=== PATIENT | female | born 1950 | race Caucasian/White ===

== ENCOUNTER 2021-12-24 20:45 | Inpatient (IN) | payer OTHER, SELFPAY ==
[2021-12-24] VITALS (23 sets, daily range): BP systolic 86–126; BP diastolic 46–115; PULSE 112–142; RESP 7–37; TEMP 37.2–38.1; O2SAT 88–96
--- NOTE | ~2021-12-24 | CT_ITS ---
EXAMINATION: CTA chest PE protocol DATE: 12/24/2021 21:59 INDICATION: Shortness of breath TECHNIQUE: Computed tomography angiography (CTA) of the chest was performed with 100 mL Omnipaque-350 intravenous contrast timed to evaluate the pulmonary arteries. Coronal maximum intensity projection 3D-reconstructions were created by the technologist. The dose-length product (DLP) was 211.62 mGy-cm. Automated exposure control and iterative reconstruction technique were employed. COMPARISON: None. FINDINGS: The pulmonary arteries are well-opacified. There are pulmonary emboli in the right upper lo be. There is moderate emphysema. There are nodular airspace opacities of the right lower lobe measuri ng up to 2.4 x 1.7 cm. There are small pleural effusions, right greater than left. There is no pneumo thorax. The heart size is normal. A small sliding hiatal hernia is noted. There is sclerosis of the L 1 and L2 vertebral bodies and posterior elements. IMPRESSION: 1. Right upper lobe pulmonary emboli. 2. Nodular airspace opacities of the right lower lobe, likely pneumonia given patient's fever. 3. Sclerosis of the L1 and L2 vertebral bodies and posterior elements which could reflect metastatic disease. These findings were discussed with Dr. Duane Burleson MD in the Emergency Department at 2218 hour s on 12/24/2021. Reviewed, dictated and finalized at location F. PUSHER IMPRESSION: 1. Right upper lobe pulmonary emboli. 2. Nodular airspace opacities of the right lower lobe, likely pneumonia given p atient's fever. 3. Sclerosis of the L1 and L2 vertebral bodies and posterior elements which cou ld reflect metastatic disease. These findings were discussed with Dr. Dunae Burleson MD in the Emergency D epartment at 2218 hours on 12/24/2021.
--- NOTE | ~2021-12-24 | XR_ITS ---
EXAMINATION: XR chest 1V portable INDICATION: Chest pain TECHNIQUE: Portable AP chest at 2103 hours COMPARISON: 01/09/2018 FINDINGS: There are minimal airspace opacities of the lung bases. Small pleural effusions are present . There is no pneumothorax. The heart size is normal. There is calcified atherosclerosis. IMPRESSION: 1. Minimal bibasilar airspace opacities, consistent with atelectasis versus pneumonia. 2. Small pleural effusions. Reviewed, dictated and finalized at location F. OR COMMISSIONS ANALYST IMPRESSION: 1. Minimal bibasilar airspace opacities, consistent with atelectasis versus pne umonia. 2. Small pleural effusions.
--- NOTE | ~2021-12-24 | XR_ITS ---
XR chest 1V portable 12/25/2021 10:50 Indication: Pneumonia Procedure: AP portable chest Comparison: Comparison to multiple prior studies sequentially, with oldest reviewed study dated 07/2018. Findings: Persistent bibasilar infiltrates unchanged compared with 12/24/2021. Heart size normal. No e etnisha, significant effusion or pneumothorax. No acute osseous abnormality. Impression: 1: Stable bibasilar infiltrates, suspicious for pneumonia. Reviewed, dictated and finalized at location B. ILE PROCESSING TECHNOLOGIST Impression: 1: Stable bibasilar infiltrates, suspicious for pneumonia.
--- NOTE | 2021-12-24 20:55 | ECG_ITS ---
Measurements Intervals [place] Rate: 138 P: [place]: 0 QRS: 61 QRSD: 137 T: 19 QT: 307 QTc: 466 Interpretive Statements ATRIAL FLUTTER/TACHYCARDIA WITH RAPID VENTRICULAR RESPONSE RIGHT BUNDLE BRANCH BLOCK BASELINE ARTIFACT- I, II, III, AVR, AVL, AVF, V1-V6 ABNORMAL ECG Electronically Signed On 12-24-2021 21:17:04 RN [facility] by Quinton España D.O.
--- NOTE | 2021-12-24 20:58 | ED.GENADULT ---
HPI - General Adult General Chief complaint: Weakness Stated complaint: SICK CASE X 3 DAYS Time Seen by Provider: 12/24/21 20:55 Source: patient Mode of arrival: ambulatory Limitations: no limitations History of Present Illness HPI narrative: Patient is a 71-year-old female complaining of shortness of breath, fever, cough, body aches that started 3 days ago. According to EMS patient's oxygen saturation was in the low 80s when they arrived. Patient states that her daughter tested positive for Covid yesterday. Patient states that she is not vaccinated from Covid. Patient denies any chest pain, abdominal pain, nausea, vomiting or diarrhea. Related Data Allergies Allergy/AdvReac Type Severity Reaction Status Date / Time No Known Allergies Allergy Verified 12/24/21 21:16 Review of Systems Review of Systems: All systems reviewed & are unremarkable except as noted in HPI and below Constitutional: Constitutional: Denies excessive sweating, Reports fatigue, Denies fever(s), Denies headache(s), Reports weakness and Denies weight loss Comments: Loss of appetite, fatigue Eyes: Eyes: Denies blurry vision, Denies change in vision and Denies loss of vision ENT: Denies dizziness, Denies ear discharge, Denies headache(s), Denies lip swelling, Denies epistaxis, Denies nasal congestion, Denies neck pain, Denies throat swelling and Denies tongue swelling Cardiovascular: Cardiovascular: Denies chest pain, Denies chest pain at rest, Denies chest pain with activity, Denies diaphoresis, Denies rapid heart rate, Denies edema, Denies irregular heart rhythm, Denies lightheadedness and Denies palpitations Respiratory: Respiratory: Denies chest congestion and Denies hemoptysis Gastrointestinal: Gastrointestinal: Denies abdominal pain, Denies melena, Denies hematochezia, Denies diarrhea, Denies nausea, Denies vomiting and Denies hematemesis Musculoskeletal: Musculoskeletal: Denies abnormal gait, Denies deformity, Denies joint swelling, Denies limited range of motion, Denies neck pain and Denies numbness Neurologic: Denies Abnormal speech present, Denies abnormal gait, Denies confusion, Denies dizziness, Denies headache(s), Denies focal weakness, Denies loss of vision, Denies numbness, Denies Other visual disturbances, Denies Sensory deficit (Neuro) and Denies weakness Psychiatric: Psychiatric: Denies confusion, Denies depression, Denies auditory hallucinations, Denies homicidal ideation and Denies suicidal ideation Endocrine: Endocrine: Denies cold intolerance, Denies excessive sweating, Denies fatigue, Denies heat intolerance and Denies palpitations Hematologic/Lymphatic: Hematologic/Lymphatic: Denies easy bleeding and Denies easy bruising Allergic/Immunologic: Allergic/Immunologic: Denies lip swelling, Denies throat swelling and Denies tongue swelling PMFSH Family History Family History Father Family history of malignant neoplasm Patient's father is Sibling Family history of malignant neoplasm Family history of heart disease in male family member before age 55 Mother Family history of heart disease in male family member before age 55 Patient's mother is Other Hypertension Social History Social History Smoking status: Current every day smoker Alcohol intake: current Comments Past medical history: None Exam Const: General: cooperative, comfortable, well developed, alert and awake; No confusion Orientation/consciousness: oriented to person, oriented to place, oriented to time, patient oriented x3 and No confusion Limitations: no limitations Other: Moderate distress, frail, ill-appearing HENMT: Head: normal to inspection, normocephalic and atraumatic Ears: hearing grossly normal bilaterally, TM normal on the right and TM normal on the left General nose exam: Normal external nose pre
[2021-12-24] MEDS: ACETAMINOPHEN 325 MG TABLET 650 MG PO (21:18)
[2021-12-24] MEDS: SODIUM CHLORIDE 0.9% IV 1,000 ML 999 ML IV CONT ×2 (21:19)
[2021-12-24 21:20] LABS: Basophils Absolute Auto 0.1 K/mm3 (0.0-0.1); Basophils Percent Auto 0.4 % (0.2-1.2); Hematocrit 33.6 % (37.0-47.0); Hemoglobin 9.3 g/dL (12.0-15.0); Immature Granulocyte Absolute 0.11 K/mm3 (0.00-0.031); Immature Granulocyte Percent A 0.8 % (0-0.5); Lymphocytes Absolute Auto 1.41 K/mm3 (0.9-3.2); Lymphocytes Percent Auto 9.6 % (18.3-44.2); Mean Corpuscular HGB Conc 27.7 g/dl (32-36); Mean Corpuscular Hemoglobin 22.9 pg (26-34); Mean Corpuscular Volume 82.6 fl (80-100); Mean Platelet Volume 9.9 fl (7.4-10.4); Monocytes Absolute Auto 1.8 K/mm3 (0.1-0.6); Monocytes Percent Auto 12.3 % (2.6-8.5); Neutrophils Absolute Auto 11.3 K/mm3 (1.3-6.7); Neutrophils Percent Auto 76.9 % (45.5-73.1); Nucleated Red Blood Cells Perc 0.2 % (0.0-0.2); Platelet Count Result 406 k/mm3 (150-375); Red Blood Count 4.07 M/mm3 (4.2-5.4); Red Cell Distribution Width 18.3 % (11.5-14.5); White Blood Count 14.6 K/mm3 (4.5-10.0)
[2021-12-24 21:32] LABS: INR 1.2; Prothrombin Time 15.1 Seconds (11.1-14.7)
[2021-12-24 21:33] LABS: Partial Thromboplastin Time 31.4 SECONDS (22.3-36.8)
[2021-12-24] MEDS: DEXAMETHASONE SOD PHOS INJ 4 MG/ML VIAL 10 MG IV PUSH (21:33)
[2021-12-24 21:34] LABS: Alveolar/Arterial O2 Gradient 73.7 mmHg; Base Excess ABG 6.7 mEq/l (+/-2.0); Carboxyhemoglobin 0.7 % THb (0-2.0); Fractional Inspired Oxygen 28 %; HCO3 ABG 33.3 mEq/l (22.0-26.0); Methemoglobin ABG 0.4 %THb (0-1.5); Oxygen Content ABG 10.7 %vol (16.0-22.0); PCO2 ABG 59.8 mmHg (35.0-45.0); PO2 ABG 55.4 mmHg (80.0-100.0); PO2 FiO2 Ratio Arterial Blood 1.98 %; Reduced Hemoglobin 15.8 %THb (0-5.0); Total Hemoglobin 9.1 g/dL (12.0-18.0); pH ABG 7.363 (7.350-7.450)
[2021-12-24 21:34] LABS: Lactic Acid Reflex 1.1 mmol/L (0.7-2.1)
[2021-12-24 21:35] LABS: Alanine Aminotransferase 17 U/L (4-35); Albumin Level 3.8 g/dL (3.5-5.1); Alkaline Phosphatase 90 U/L (38-126); Anion Gap 5 mmol/L (8-16); Aspartate Amino Transferase 31 U/L (14-36); Bilirubin,Total 0.4 mg/dL (0.2-1.3); Blood Urea Nitrogen 26 mg/dL (7-17); Calcium 8.4 mg/dL (8.4-10.2); Carbon Dioxide 36 mmol/L (22-30); Chloride 100 mmol/L (98-107); D Dimer 0.97 ug/mL (<0.48); Estimated Glomerular Filt Rate > 60; Glucose 169 mg/dL (65-110); Potassium 3.9 mmol/L (3.4-5.0); Sodium 141 mmol/L (137-145)
[2021-12-24 21:37] LABS: Device NASAL CANNULA; Modified Allen's Test Pass; Oxygen Saturation ABG 86.9 % (95.0-100.0); Oxyhemoglobin 83.1 % THb (90.0-100.0); Site Drawn RIGHT RADIAL
[2021-12-24 21:40] LABS: Hypochromasia 2+ (NORMAL); Ovalocytes 1+ (NORMAL); Platelet Estimate Increased (Adequate)
[2021-12-24] MEDS: ALBUTEROL SULFATE NEB 2.5 MG/0.5 ML INH 5 MG INHALATION (21:40)
[2021-12-24] MEDS: IPRATROPIUM BR 0.02% INH SOLN 0.5 MG/2.5 ML VIAL INHALATION (21:40)
[2021-12-24 21:41] LABS: Anisocytosis 1+ (NORMAL); Stomatocytes 1+ (NORMAL)
[2021-12-24 22:16] LABS: SARS-CoV-2 RNA PCR Positive
--- NOTE | 2021-12-24 22:40 | PM.IMHP ---
H&P: HPI History of Present Illness Date/Time: 12/24/21 22:40 Chief Complaint: Shortness of breath Narrative: This is a 71-year-old female with past medical history significant for COPD/emphysema, tobacco dependence. Patient presented to the emergency room due to shortness of breath for the last 3-4 days or so cough which is her usual with some production of scanty sputum no change in color. Patient has been having fevers, chills, rigors, denies night sweats, poor appetite. Upon EMS arrival patient was found to have an oxygen saturation in the 80s. Preliminary workup was significant for positive COVID-19. A CT PE protocol was significant for pulmonary emboli as well. Chest x-ray with infiltrates. Review of Systems Review of Systems: Shortness of breath, cough, fevers chills, poor appetite. Constitutional: Constitutional: Reports chills, Reports fatigue, Reports fever(s) and Reports poor appetite Eyes: Eyes: Denies change in vision ENT: Denies dysphagia, Denies nasal congestion, Denies nasal discharge, Denies nasal obstruction and Denies odynophagia Cardiovascular: Cardiovascular: Denies claudication, Denies radiating jaw, neck or arm pain, Denies palpitations, Denies dyspnea on exertion and Denies orthopnea Respiratory: Respiratory: Denies change in phlegm color, Reports chest congestion, Reports cough, Denies excessive phlegm production and Reports dyspnea Gastrointestinal: Gastrointestinal: Denies abdominal pain, Denies dyspepsia, Denies heartburn, Denies diarrhea, Denies nausea and Denies vomiting Genitourinary: Genitourinary: Denies dysuria Musculoskeletal: Musculoskeletal: Denies arthralgias and Denies joint swelling Integumentary/Breasts: Skin/Breast: Denies rash Neurologic: Denies focal weakness and Denies Sensory deficit (Neuro) Psychiatric: Psychiatric: Reports no additional psychiatric complaints and Reports as per HPI Endocrine: Endocrine: Denies cold intolerance, Denies heat intolerance, Denies polyphagia, Denies polydipsia and Denies palpitations Hematologic/Lymphatic: Hematologic/Lymphatic: Reports no additional hematologic/lymphatic complaints and Reports as per HPI Allergic/Immunologic: Allergic/Immunologic: Reports no additional allergic/immunologic complaints and Reports as per HPI [facility] Family History Family History Father Family history of malignant neoplasm Patient's father is Sibling Family history of malignant neoplasm Family history of heart disease in male family member before age 55 Mother Family history of heart disease in male family member before age 55 Patient's mother is Other Hypertension Social History Social History Smoking packs per day: 0.75 Smoking cigarettes per day: 15.0 Smoking status: Current every day smoker Tobacco type: cigarettes Alcohol intake: current Spiritual care concerns: No Meds Home Medications and Allergies Home Medications Medication Instructions Recorded Confirmed Type No Home Medications 12/25/21 12/25/21 History Allergies Allergy/AdvReac Type Severity Reaction Status Date / Time No Known Allergies Allergy Verified 12/24/21 21:16 Vital Signs Vital Signs - 24 hr 12/24/21 20:49 12/24/21 21:35 12/24/21 21:42 Temperature 100.5 F H Pulse Rate 140 H 112 H 120 H Respiratory Rate 33 H 23 H 24 H Blood Pressure 86/64 L Pulse Oximetry 88 L Exam Narrative: Patient is sitting in chair Const: General: cooperative, comfortable, no acute distress, well developed, alert, awake and ill appearing chronically Nutritional Appearance: average body habitus Orientation/consciousness: patient oriented x3 HENMT: Head: normal to inspection, normocephalic and atraumatic Ears: hearing grossly normal bilaterally General nose exam: Normal external nose present Face and sin
[2021-12-24] MEDS: ENOXAPARIN 60 MG/0.6 ML SYRINGE SUB-Q (23:27)
[2021-12-24] MEDS: LACTATED RINGERS 1,000 ML 125 ML IV CONT (23:28)
--- NOTE | 2021-12-24 23:50 | PC.NURSE ---
[id number] Patient's daughter and updated on patient's condition. Advised them that she was being admitted and that patients with covid cannot have visitors. Updated patient's daughter with her room number. Salome - daughter - [phone] Taye - - [phone]
[2021-12-25] VITALS (21 sets, daily range): BP systolic 100–140; BP diastolic 43–65; PULSE 13–135; RESP 18–22; TEMP 35.8–36.6; O2SAT 90–99; BMI 28.8
--- NOTE | 2021-12-25 | ECHO_ITS ---
Patient Info Name: Georgette Mcgill Age: 71 years : 1950 Gender: Female Ht: 59 in Wt: 144 lbs BSA: 1.67 m2 HR: 90 bpm BP: 137 / 64 mmHg Heart Rhythm: Sinus Rhythm Exam Date: 12/25/2021 11:07 AM Exam Location: [facility] Pulmonary Patient Status: Inpatient Admit Date: 12/24/2021 Staff Ordering Physician: Laura Martin MD Cold Header: Oc Yancey, JATINDER, RT Attending Provider: Hunter Amos MD Exam Type: CA echo doppler color flow Study Info Indications I26.09 - Other pulmonary embolism with acute cor pulmonale Complete two-dimensional, color flow and Doppler transthoracic echocardiogram is performed. Strain analysis performed. Summary 1. Complete two-dimensional, color flow and Doppler transthoracic echocardiogram is performed. 2. Normal LV size and wall thickness; normal LV systolic and diastolic function; ejection fraction 65-70%. Abnormal global longitudinal strain measured at -12%. Normal mitral valve structure, trace MR. Normal aortic valve structure, no stenosis or regurgitation. Trace TR, unable to assess RVSP due to inadequate TR jet. Dilated IVC without respiratory collapse consistent with elevated right atrial pressure. Left Ventricle Left ventricular chamber dimension is normal. Left ventricular systolic function is normal, estimated at 65-70%. There is no increased left ventricular wall thickness. The left ventricular diastolic function is normal. Right Ventricle Right ventricular chamber dimension is normal. Right ventricular systolic function is normal. Left Atria Left atrial chamber dimension is normal. Right Atria Right atrial chamber dimension is normal. Aortic Valve The aortic valve is normal. There is no aortic valve stenosis. Pulmonic Valve The pulmonic valve is not well visualized. There is mild pulmonic regurgitation. Mitral Valve The mitral valve has normal leaflets. There is trace mitral valve regurgitation. Tricuspid Valve The tricuspid valve leaflets are normal. There is trace tricuspid valve regurgitation. Pericardium/Pleural The pericardium appears epicardial fat pad. Inferior Vena Cava Dilated inferior vena cava with no collapse upon inspiration consistent with elevated right atrial pressure, 15 mmHg. Aorta The aortic root size at the sinus of Valsalva is normal. Left Ventricular Outflow Tract Name Value Normal LVOT 2D LVOT Diameter 2.0 cm LVOT Doppler LVOT Peak Gradient 3 mmHg LVOT Mean Gradient 2 mmHg LVOT VTI 21 cm LVOT VTI/AV VTI Ratio 0.8 LVOT Stroke Volume 64 ml LVOT CO 5.8 l/min LVOT CI 3.5 l/min/m2 Mitral Valve Name Value Normal MV Doppler MV Decel [place]
--- NOTE | 2021-12-25 00:43 | PC.NURSE ---
Report called to SHAY Garcia.
--- NOTE | 2021-12-25 01:34 | ADMGEN ---
This patient, Georgette Mcgill, was admitted to IMU Room 210-01 12/25 @ 0100. Patient/family oriented to hospital policies and general routines including ID bracelet, bed and alarms, visiting hours, pain management, procedures, bathroom and other care routines, personal items, smoking policy, room service/diet, and visiting hours. Information on how to activate the Rapid Response Team has been discussed. Patient/Family are encouraged to report perceived risks to care and to ask questions if they do not understand what they are told or what they should do.
[2021-12-25] MEDS: IPRATROPIUM BR 0.02% INH SOLN 0.5 MG/2.5 ML VIAL INHALATION ×3 (02:41→14:53)
[2021-12-25] MEDS: ALBUTEROL SULFATE NEB 2.5 MG/0.5 ML INH 5 MG INHALATION ×3 (02:41→14:53)
[2021-12-25] MEDS: ENOXAPARIN 60 MG/0.6 ML SYRINGE SUB-Q ×2 (08:11→20:35)
--- NOTE | 2021-12-25 10:20 | PM.IMPN ---
Progress Note: A&P Assessment and Plan (1) Acute respiratory failure with hypoxemia: Code(s): J96.01 - Acute respiratory failure with hypoxia Status: Acute Assessment and Plan: Continue supplemental oxygen by nasal cannula Continuous telemetry. Continuous pulse ox (2) Pneumonia: Qualifiers: Laterality: unspecified laterality Lung location: unspecified part of lung Pneumonia type: due to unspecified organism Qualified Code(s): J18.9 - Pneumonia, unspecified organism Code(s): J18.9 - Pneumonia, unspecified organism Status: Acute Assessment and Plan: Patient was appropriately started on Rocephin and Zithromax Follow-up blood cultures. Obtain influenza, procalcitonin, ferritin, CRP, and ESR. (3) Pulmonary embolism without acute cor pulmonale: Qualifiers: Chronicity: acute Pulmonary embolism type: other Qualified Code(s): I26.99 - Other pulmonary embolism without acute cor pulmonale Code(s): I26.99 - Other pulmonary embolism without acute cor pulmonale Status: Acute Assessment and Plan: Patient started on therapeutic Lovenox. Obtain echocardiogram. (4) Pneumonia due to COVID-19 virus: Code(s): U07.1 - COVID-19; J12.82 - Pneumonia due to coronavirus disease 2019 Status: Acute Assessment and Plan: Patient requires 5 L of oxygen. Start Remdesivir and dexamethasone. (5) Tobacco dependence: Code(s): F17.200 - Nicotine dependence, unspecified, uncomplicated Status: Acute Assessment and Plan: Nicotine patch as needed Subjective Date/time seen: 12/25/21 10:20 this is a 71-year-old lady with a past medical history of chronic smoking, COPD/emphysema, admitted for COVID-19 pneumonia. She was diagnosed with pulmonary embolism. S: Patient was seen examined at the bedside. She denies any complaints. At this moment she requires low volume of oxygen. Review of Systems Constitutional: Constitutional: Reports chills, Reports fatigue, Reports fever(s) and Reports poor appetite Eyes: Eyes: Denies change in vision ENT: Denies dysphagia, Denies nasal congestion, Denies nasal discharge, Denies nasal obstruction and Denies odynophagia Cardiovascular: Cardiovascular: Denies claudication, Denies radiating jaw, neck or arm pain, Denies palpitations, Reports dyspnea, Denies dyspnea on exertion and Denies orthopnea Respiratory: Respiratory: Denies change in phlegm color, Reports chest congestion, Reports cough, Denies excessive phlegm production, Reports dyspnea and Denies dyspnea on exertion Gastrointestinal: Gastrointestinal: Denies abdominal pain, Denies dysphagia, Denies dyspepsia, Denies heartburn, Denies diarrhea, Denies nausea, Denies odynophagia and Denies vomiting Genitourinary: Genitourinary: Denies dysuria Musculoskeletal: Musculoskeletal: Denies arthralgias and Denies joint swelling Integumentary/Breasts: Skin/Breast: Denies rash Neurologic: Denies focal weakness and Denies Sensory deficit (Neuro) Psychiatric: Psychiatric: Reports no additional psychiatric complaints and Reports as per HPI Endocrine: Endocrine: Denies cold intolerance, Reports fatigue, Denies heat intolerance, Denies polyphagia, Denies polydipsia and Denies palpitations Hematologic/Lymphatic: Hematologic/Lymphatic: Reports no additional hematologic/lymphatic complaints and Reports as per HPI Allergic/Immunologic: Allergic/Immunologic: Reports no additional allergic/immunologic complaints and Reports as per HPI Exam Narrative: Patient is sitting in bed. Const: General: cooperative, comfortable, no acute distress, well developed, alert, awake and ill appearing chronically Nutritional Appearance: average body habitus Orientation/consciousness: patient oriented x3 HENMT: Head: normal to inspection, normocephalic and atraumatic Ears: hearing grossly normal bilaterally General nose exam: Normal external nose present Face and sinus: normal facial
[2021-12-25 10:51] LABS: INR 1.2
[2021-12-25 10:54] LABS: Alanine Aminotransferase 18 U/L (4-35); Estimated Glomerular Filt Rate > 60
[2021-12-25] MEDS: REMDESIVIR 200 MG/NS 250 ML 200 MG/250 ML BAG 250 MG IVPB (12:01)
[2021-12-25] MEDS: LACTATED RINGERS 1,000 ML 125 ML IV CONT (18:48)
[2021-12-25] MEDS: cefTRIAXone 2 GM in SODIUM CHLORIDE 0.9% IV 100 ML 200 ML IVPB (20:35)
[2021-12-25] MEDS: ALBUTEROL SULFATE (*SP) INHALER 2 PUFF INHALATION (20:49)
[2021-12-26] VITALS (16 sets, daily range): BP systolic 154–161; BP diastolic 62–81; PULSE 73–106; RESP 18–20; TEMP 36.7–37; O2SAT 90–94
[2021-12-26 00:14] LABS: Influenza Control Positive
[2021-12-26] MEDS: ALBUTEROL SULFATE (*SP) INHALER 2 PUFF INHALATION ×3 (02:33→14:42)
[2021-12-26] MEDS: LACTATED RINGERS 1,000 ML 125 ML IV CONT (05:19)
[2021-12-26 05:21] LABS: Alanine Aminotransferase 17 U/L (4-35); Estimated Glomerular Filt Rate > 60
[2021-12-26 05:24] LABS: INR 1.2; Prothrombin Time 14.5 Seconds (11.1-14.7)
[2021-12-26 06:04] LABS: Ferritin 6.65 ng/mL (11.1-264)
[2021-12-26 06:37] LABS: Erythrocyte Sedimentation Rate 24 mm/hr (0-20)
[2021-12-26 08:23] LABS: Anion Gap 2 mmol/L (8-16); Blood Urea Nitrogen 20 mg/dL (7-17); Calcium 8.2 mg/dL (8.4-10.2); Carbon Dioxide 34 mmol/L (22-30); Chloride 103 mmol/L (98-107); Estimated Glomerular Filt Rate > 60; Glucose 103 mg/dL (65-110); Potassium 3.9 mmol/L (3.4-5.0); Sodium 139 mmol/L (137-145)
[2021-12-26] MEDS: ENOXAPARIN 60 MG/0.6 ML SYRINGE SUB-Q (08:52)
[2021-12-26] MEDS: DEXAMETHASONE 2 MG TABLET 6 MG PO (08:53)
[2021-12-26] MEDS: FUROSEMIDE 40 MG TABLET PO (09:04)
[2021-12-26] MEDS: REMDESIVIR 100 MG/NS 250 ML 100 MG/250 ML BAG 250 MG IVPB (09:10)
--- NOTE | 2021-12-26 09:28 | PM.IMPN ---
Progress Note: A&P Assessment and Plan (1) Acute respiratory failure with hypoxemia: Code(s): J96.01 - Acute respiratory failure with hypoxia Status: Acute Assessment and Plan: Acute hypoxic respiratory failure, currently requiring 2 L of oxygen. Likely secondary to COVID-19 pneumonia. In addition diagnosed with pulmonary and boluses, with relatively modest clot burden. Echocardiogram has been ordered. Due to suspicion vertebral lesions on imaging, oncology has been consulted. Continue supplemental oxygen by nasal cannula Continuous telemetry. Continuous pulse ox (2) Pneumonia: Qualifiers: Laterality: unspecified laterality Lung location: unspecified part of lung Pneumonia type: due to unspecified organism Qualified Code(s): J18.9 - Pneumonia, unspecified organism Code(s): J18.9 - Pneumonia, unspecified organism Status: Acute Assessment and Plan: Patient was appropriately started on Rocephin and Zithromax. WBC count is trending down. Influenza has been negative. Inflammatory markers are not significantly elevated. Blood cultures have been negative so far. (3) Pulmonary embolism without acute cor pulmonale: Qualifiers: Chronicity: acute Pulmonary embolism type: other Qualified Code(s): I26.99 - Other pulmonary embolism without acute cor pulmonale Code(s): I26.99 - Other pulmonary embolism without acute cor pulmonale Status: Acute Assessment and Plan: Patient started on therapeutic Lovenox. Obtain echocardiogram. (4) Pneumonia due to COVID-19 virus: Code(s): U07.1 - COVID-19; J12.82 - Pneumonia due to coronavirus disease 2019 Status: Acute Assessment and Plan: Patient requires 5 L of oxygen. Start Remdesivir and dexamethasone. (5) Tobacco dependence: Code(s): F17.200 - Nicotine dependence, unspecified, uncomplicated Status: Acute Assessment and Plan: Nicotine patch as needed Subjective Date/time seen: 12/26/21 08:28 S: Patient was seen and examined at the bedside. She denies any complaints other than insomnia last night. She is anxious to go home. She denies any difficulty breathing while laying down. She has not been on a water pill recently. Review of Systems Constitutional: Constitutional: Reports chills, Reports fatigue, Reports fever(s) and Reports poor appetite Eyes: Eyes: Denies change in vision ENT: Denies dysphagia, Denies nasal congestion, Denies nasal discharge, Denies nasal obstruction and Denies odynophagia Cardiovascular: Cardiovascular: Denies claudication, Denies radiating jaw, neck or arm pain, Denies palpitations, Reports dyspnea, Denies dyspnea on exertion and Denies orthopnea Respiratory: Respiratory: Denies change in phlegm color, Reports chest congestion, Reports cough, Denies excessive phlegm production, Reports dyspnea and Denies dyspnea on exertion Gastrointestinal: Gastrointestinal: Denies abdominal pain, Denies dysphagia, Denies dyspepsia, Denies heartburn, Denies diarrhea, Denies nausea, Denies odynophagia and Denies vomiting Genitourinary: Genitourinary: Denies dysuria Musculoskeletal: Musculoskeletal: Denies arthralgias and Denies joint swelling Integumentary/Breasts: Skin/Breast: Denies rash Neurologic: Denies focal weakness and Denies Sensory deficit (Neuro) Psychiatric: Psychiatric: Reports no additional psychiatric complaints and Reports as per HPI Endocrine: Endocrine: Denies cold intolerance, Reports fatigue, Denies heat intolerance, Denies polyphagia, Denies polydipsia and Denies palpitations Hematologic/Lymphatic: Hematologic/Lymphatic: Reports no additional hematologic/lymphatic complaints and Reports as per HPI Allergic/Immunologic: Allergic/Immunologic: Reports no additional allergic/immunologic complaints and Reports as per HPI Exam Narrative: Patient is sitting in bed. Const: General: cooperative, comfortable, no acute distress, well develop
[2021-12-26 10:20] LABS: Basophils Percent Auto 0.2 % (0.2-1.2); Eosinophils Percent Auto 0.1 % (0-4.4); Hematocrit 30.1 % (37.0-47.0); Hemoglobin 7.9 g/dL (12.0-15.0); Immature Granulocyte Absolute 0.09 K/mm3 (0.00-0.031); Immature Granulocyte Percent A 0.6 % (0-0.5); Lymphocytes Absolute Auto 1.58 K/mm3 (0.9-3.2); Lymphocytes Percent Auto 10.6 % (18.3-44.2); Mean Corpuscular HGB Conc 26.2 g/dl (32-36); Mean Corpuscular Hemoglobin 21.7 pg (26-34); Mean Corpuscular Volume 82.7 fl (80-100); Mean Platelet Volume 10.5 fl (7.4-10.4); Monocytes Absolute Auto 1.3 K/mm3 (0.1-0.6); Monocytes Percent Auto 8.6 % (2.6-8.5); Neutrophils Percent Auto 79.9 % (45.5-73.1); Platelet Count Result 360 k/mm3 (150-375); Red Blood Count 3.64 M/mm3 (4.2-5.4); Red Cell Distribution Width 17.8 % (11.5-14.5)
[2021-12-26 10:23] LABS: Platelet Estimate Adequate (Adequate)
[2021-12-26 10:24] LABS: Anisocytosis 2+ (NORMAL)
[2021-12-26 10:25] LABS: Hypochromasia 2+ (NORMAL); Ovalocytes 2+ (NORMAL)
--- NOTE | 2021-12-26 11:46 | PCRCNOTE ---
HOME O2 EVALUATION COMPLETED. PATIENT DOES NOT REQUIRE HOME O2. RN INFORMED.
--- NOTE | 2021-12-26 15:48 | PM.DS ---
DS: Admitting Diagnosis Discharge Date 12/26/2021. Admitting Diagnosis (1) Acute respiratory failure with hypoxemia: (2) Pneumonia: (3) Pulmonary embolism without acute cor pulmonale: (4) Pneumonia due to COVID-19 virus: (5) Tobacco dependence: DS: Discharge Diagnosis Discharge Diagnosis (1) Acute respiratory failure with hypoxemia: Code(s): J96.01 - Acute respiratory failure with hypoxia Status: Acute Assessment and Plan: Acute hypoxic respiratory failure, currently requiring 2 L of oxygen. Likely secondary to COVID-19 pneumonia. In addition diagnosed with pulmonary and boluses, with relatively modest clot burden. Echocardiogram has been ordered. Due to suspicion vertebral lesions on imaging, oncology has been consulted. Continue supplemental oxygen by nasal cannula Continuous telemetry. Continuous pulse ox (2) Pneumonia: Qualifiers: Laterality: unspecified laterality Lung location: unspecified part of lung Pneumonia type: due to unspecified organism Qualified Code(s): J18.9 - Pneumonia, unspecified organism Code(s): J18.9 - Pneumonia, unspecified organism Status: Acute Assessment and Plan: Patient was appropriately started on Rocephin and Zithromax. WBC count is trending down. Influenza has been negative. Inflammatory markers are not significantly elevated. Blood cultures have been negative so far. (3) Pulmonary embolism without acute cor pulmonale: Qualifiers: Chronicity: acute Pulmonary embolism type: other Qualified Code(s): I26.99 - Other pulmonary embolism without acute cor pulmonale Code(s): I26.99 - Other pulmonary embolism without acute cor pulmonale Status: Acute Assessment and Plan: Patient started on therapeutic Lovenox. Obtain echocardiogram. (4) Pneumonia due to COVID-19 virus: Code(s): U07.1 - COVID-19; J12.82 - Pneumonia due to coronavirus disease 2019 Status: Acute Assessment and Plan: Patient requires 5 L of oxygen. Start Remdesivir and dexamethasone. (5) Tobacco dependence: Code(s): F17.200 - Nicotine dependence, unspecified, uncomplicated Status: Acute Assessment and Plan: Nicotine patch as needed (6) Edema leg: Code(s): R60.0 - Localized edema Status: Acute DS: Summary Hospital Course Reason for hospitalization: Shortness of breath Hospital Course: Please refer to admission H and P. Briefly, this is a 71-year-old female with past medical history significant for COPD/emphysema, tobacco dependence. Patient presented to the emergency room due to shortness of breath for the last 3-4 days or so cough which is her usual with some production of scanty sputum no change in color. Patient has been having fevers, chills, rigors, denies night sweats, poor appetite. Upon EMS arrival patient was found to have an oxygen saturation in the 80s. Preliminary workup was significant for positive COVID-19. A CT PE protocol was significant for pulmonary emboli as well. Chest x-ray with infiltrates. She was managed with IV antibiotics, inhalers, steroids, remdesivir. Echocardiogram did not reveal any significant cardiac impairment. Patient was anxious to return home. Home O2 evaluation was done; no home O2 requirement. She was treated with lovenox then transitioned to eliquis. Patient can be discharged home on PO steroids, and inhalers. She will monitor her pulse oxymetry at home and was instructed to return to the hospital if any clinical deterioration was suspected. Time spent discussing smoking cessation with patient: 3 to 10 minutes Status at Discharge Cognitive/behavioral status at discharge: At baseline Functional status at discharge: independent ambulation Overall status at discharge: patient is back to baseline Time Spent with Patient Time attestation: Total time spent providing and/or coordinating discharge services:35 min Time spent: Greater than 30 minutes Exam Narr
== END 2021-12-26 16:45 | disposition home or self-care (01) | DRG 177 ==
LOC: ANHED 22:25 → ANHIMU 12-25 02:31
PROVIDERS: Admitting Provider Internal Medicine; Emergency Provider Emergency Medicine; Visit Provider Internal Medicine
DX: U07.1 COVID-19 (principal); I26.99 Other pulmonary embolism without acute cor pulmonale; J96.01 Acute respiratory failure with hypoxia; J12.82 Pneumonia due to coronavirus disease 2019; J18.9 Pneumonia, unspecified organism; J43.9 Emphysema, unspecified; F17.210 Nicotine dependence, cigarettes, uncomplicated; R60.0 Localized edema
CPT/HCPCS: 36415; 36600; 71045; 71275; 80048; 80053; 82375; 82565; 82728; 82805; 83050; 83605; 84460; 85025; 85380; 85610; 85652; 85730; 87040; 87804; 93005; 93306; 94618; 94640; 96361; 96365; 96367; 96375; 99291; A9270; C9803; J0456; J0696; J1100; J1650; J7030; J7120; J8540; Q9967; U0003; U0005

== ENCOUNTER 2022-11-07 12:57 | Inpatient (IN) | payer OTHER, SELFPAY ==
[2022-11-07] VITALS (22 sets, daily range): BP systolic 87–126; BP diastolic 44–86; PULSE 95–114; RESP 17–30; TEMP 35.6–37.4; O2SAT 80–100
--- NOTE | ~2022-11-07 | XR_ITS ---
EXAMINATION: XR chest 2V DATE: 11/11/2022 13:26 INDICATION: Increased oxygen demand. TECHNIQUE: Frontal and lateral views of the chest were obtained. COMPARISON: Chest 2 views 11/07/2022, chest CT 12/24/2021 FINDINGS: There are small pleural effusions. There are airspace opacities at the lung bases. No pneum othorax. Cardiomegaly is noted. IMPRESSION: 1. Worsened small pleural effusions. 2. Worsened airspace opacities at the lung bases, consistent with atelectasis versus pneumonia. 3. Cardiomegaly. Reviewed, dictated and finalized at location A. K 9 HANDLER/ DEPUTY IMPRESSION: 1. Worsened small pleural effusions. 2. Worsened airspace opacities at the lung bases, consistent with atelectasis v ersus pneumonia. 3. Cardiomegaly.
--- NOTE | ~2022-11-07 | US_ITS ---
EXAMINATION: US venous doppler [facility] DATE: 11/08/2022 09:49 INDICATION: Lower limb edema. TECHNIQUE: Grayscale ultrasound images without and with compression and Doppler ultrasound images of the bilateral lower extremity veins were obtained. COMPARISON: None. FINDINGS: The visualized portions of right common femoral vein, profunda (deep) femoral vein, femoral vein, pop liteal vein, peroneal veins, posterior tibial veins, and greater saphenous vein outflow are patent. The visualized portions of left common femoral vein, profunda femoral vein, femoral vein, popliteal v ein, peroneal veins, posterior tibial veins, and greater saphenous vein outflow are patent. IMPRESSION: 1. No deep venous thrombosis. Reviewed, dictated and finalized at location A. OPERATION SUPERVISOR
--- NOTE | ~2022-11-07 | XR_ITS ---
XR chest 2V 11/07/2022 17:38 Indication: Shortness of breath and fatigue Procedure: 2 view chest Comparison: Comparison to multiple prior studies sequentially, with oldest reviewed study dated 12/25. Findings: Borderline heart size. Bibasilar infiltrates. Small pleural effusions. Atherosclerosis of t he aorta. No acute osseous abnormality. Impression: 1: Bibasilar airspace disease may represent atelectasis or pneumonia. 2: Small pleural effusions. Reviewed, dictated and finalized at location A. NE ADVERTISING ANALYST Impression: 1: Bibasilar airspace disease may represent atelectasis or pneumonia. 2: Small pleural effusions.
--- NOTE | ~2022-11-07 | CT_ITS ---
EXAMINATION: CT brain wo con DATE: 11/10/2022 10:24 INDICATION: Transient alteration of awareness. TECHNIQUE: Computed tomography (CT) of the head was performed without intravenous contrast. The dose- length product was 605.33 mGy-cm. Automated exposure control and iterative reconstruction technique w ere employed. COMPARISON: None FINDINGS: Mild generalized atrophy. There are scattered mild periventricular and subcortical white ma tter changes, most likely related to small vessel ischemic disease (microangiopathy). There is intrac ranial atherosclerosis. No ventriculomegaly or midline shift. Basilar cisterns are patent. No acute i ntracranial hemorrhage, infarction, mass or mass effect. IMPRESSION: 1. No acute intracranial abnormality. Reviewed, dictated and finalized at location A. OR SALES OPERATIONS MANAGER
--- NOTE | 2022-11-07 13:17 | ECG_ITS ---
Measurements Intervals Hyrum Rate: 105 P: 70 NV: 222 QRS: 71 QRSD: 105 T: 56 QT: 321 QTc: 424 Interpretive Statements SINUS TACHYCARDIA WITH FIRST DEGREE AV BLOCK INCOMPLETE RIGHT BUNDLE BRANCH BLOCK ABNORMAL ECG COMPARED TO ECG 12/24/2021 21:01:34 SINUS TACHYCARDIA NOW PRESENT FIRST DEGREE AV BLOCK NOW PRESENT INCOMPLETE RIGHT BUNDLE-BRANCH BLOCK NOW PRESENT Electronically Signed On 11-07-2022 13:31:54 CIRCUS TRAINER by Quinton España D.O.
[2022-11-07 13:42] LABS: Basophils Percent Auto 0.2 % (0.2-1.2); Eosinophils Percent Auto 0.2 % (0-4.4); Hematocrit 24.7 % (37.0-47.0); Immature Granulocyte Absolute 0.09 K/mm3 (0.00-0.031); Immature Granulocyte Percent A 0.6 % (0-0.5); Lymphocytes Absolute Auto 0.46 K/mm3 (0.9-3.2); Lymphocytes Percent Auto 3.3 % (18.3-44.2); Mean Corpuscular HGB Conc 23.5 g/dl (32-36); Mean Corpuscular Hemoglobin 16.6 pg (26-34); Mean Corpuscular Volume 70.6 fl (80-100); Mean Platelet Volume 9.2 fl (7.4-10.4); Monocytes Absolute Auto 0.9 K/mm3 (0.1-0.6); Monocytes Percent Auto 6.3 % (2.6-8.5); Neutrophils Absolute Auto 12.4 K/mm3 (1.3-6.7); Neutrophils Percent Auto 89.4 % (45.5-73.1); Nucleated Red Blood Cells Absolute Auto 0.1 K/mm3 (0.0-0.012); Nucleated Red Blood Cells Perc 0.7 % (0.0-0.2); Platelet Count Result 531 k/mm3 (150-375); Red Cell Distribution Width 20.9 % (11.5-14.5); White Blood Count 13.9 K/mm3 (4.5-10.0)
[2022-11-07 13:49] LABS: Hemoglobin 5.8 g/dL (12.0-15.0)
[2022-11-07 13:53] LABS: Alanine Aminotransferase 23 U/L (6-35); Albumin Level 4.2 g/dL (3.5-5.1); Alkaline Phosphatase 97 U/L (38-126); Anion Gap 8 mmol/L (8-16); Aspartate Amino Transferase 30 U/L (14-36); Bilirubin,Total 0.6 mg/dL (0.2-1.3); Blood Urea Nitrogen 32 mg/dL (7-17); Calcium 8.5 mg/dL (8.4-10.2); Carbon Dioxide 32 mmol/L (22-30); Chloride 97 mmol/L (98-107); Estimated CRCL calculation 45 ml/min; Estimated Glomerular Filt Rate > 60; Glucose 129 mg/dL (65-110); Potassium 3.8 mmol/L (3.4-5.0); Sodium 137 mmol/L (137-145)
[2022-11-07 13:58] LABS: Hypochromasia 2+ (NORMAL); Platelet Estimate Increased (Adequate); Poikilocytosis 1+ (NORMAL)
[2022-11-07 13:59] LABS: Anisocytosis 2+ (NORMAL); Macrocytosis 1+ (NORMAL); Ovalocytes 1+ (NORMAL); Schistocytes Rare (NORMAL)
[2022-11-07 14:00] LABS: Giant Platelets Present; Stomatocytes 2+ (NORMAL)
--- NOTE | 2022-11-07 14:06 | ED.SOB ---
HPI - SOB/Dyspnea General Chief Complaint: Shortness of Breath/Dyspnea Stated Complaint: I need oxygen Time Seen by Provider: 11/07/22 14:05 Source: patient Mode of arrival: ambulatory Limitations: no limitations History of Present Illness HPI Narrative: The patient is a 72 yo female with a PMH of PE on Eliquis, COPD, CHF, who is presenting to the emergency department for evaluation of dyspnea. Patient reports symptoms have been oncoming over the past 3 weeks. Pt has had associated pleuritic chest pain which is intermittent, as well as productive cough. Pt denies hemoptysis. Symptoms seemed similar to previous COVID Infection, but home test has been negative. Pt with grandchildren who have had similar symptoms. Pt denies headache, fever, chills, nausea, vomiting. No abdominal pain. No lightheadedness or dizziness. No syncopal events. Related Data Allergies Allergy/AdvReac Type Severity Reaction Status Date / Time No Known Allergies Allergy Verified 12/24/21 21:16 Review of Systems Review of Systems: CONSTITUTIONAL: Denies fever, chills, or sweats. EYES: Denies visual changes, redness, or discharge. ENT: Denies rhinorrhea, congestion, sore throat, or otalgia. CARDIOVASCULAR: Intermittent chest pain, denies palpitations, reports leg edema RESPIRATORY: Reports cough and shortness of breath GASTROINTESTINAL: Denies abdominal pain, nausea, vomiting, or diarrhea. GENITOURINARY: Denies dysuria or hematuria. SKIN: Denies rash or itching. MUSCULOSKELETAL: Denies back pain, joint pain, or myalgia. NEUROLOGIC: Denies headache, numbness, or weakness. [facility] Past Medical History Medical History (Updated 11/07/22 @ 18:28 by Freida Lara MD) Acute respiratory failure with hypoxemia Edema leg Pneumonia due to COVID-19 virus Pulmonary embolism without acute cor pulmonale Tobacco dependence Family History Family History Father Family history of malignant neoplasm Patient's father is Sibling Family history of malignant neoplasm Family history of heart disease in male family member before age 55 Mother Family history of heart disease in male family member before age 55 Patient's mother is Other Hypertension Social History Social History Smoking packs per day: 0.75 Smoking cigarettes per day: 15.0 Smoking status: Current every day smoker Tobacco type: cigarettes Alcohol intake: current Spiritual care concerns: No Exam Narrative: GENERAL: Awake, alert, conversant HEAD: Normocephalic, atraumatic. EYES: PERRLA and EOMI. ENT: Nares clear, no rhinorrhea or epistaxis. Mucous membranes moist. NECK: Supple. CHEST: No respiratory distress, pt with bilateral crackles in the bases, coarse breath sounds right middle lobe HEART:Tachycardic rate, sinus rhythm ABDOMEN:Non distended, non tender EXTREMITIES: Normal range of motion. 2+ lower extremity edema SKIN: Pallor. Warm, dry, no rash. NEURO:No focal deficits. Alert and oriented x3 Course Vital Signs Vital signs: Vital Signs Temperature 36.4 C L 11/07/22 13:08 Pulse Rate 113 H 11/07/22 13:08 Respiratory Rate 20 11/07/22 13:08 Blood Pressure 108/47 L 11/07/22 13:08 Pulse Oximetry 80 L 11/07/22 13:08 Oxygen Delivery Room Air 11/07/22 13:08 Temperature 36.6 C 11/07/22 20:56 Pulse Rate 102 H 11/07/22 20:56 Respiratory Rate 17 11/07/22 20:56 Blood Pressure 121/48 L 11/07/22 20:56 Pulse Oximetry 99 11/07/22 21:33 Oxygen Delivery Nasal Cannula 11/07/22 21:33 Oxygen Flow Rate 4 11/07/22 21:33 MDM - SOB/Dyspnea MDM Narrative Medical decision making narrative: Patient is a 72-year-old female presenting for evaluation of shortness of breath. She was hypoxic at the time of assessment, placed on initially 4 L oxygen via nasal cannula titrated down to 2 L. Patient is pale
[2022-11-07 16:34] LABS: Influenza A QL RT-PCR Negative (Negative); Influenza B QL RT-PCR Negative (Negative); SARS-CoV-2 RNA PCR Negative
[2022-11-07 17:12] LABS: Lactate Dehydrogenase 182 U/L (120-246)
[2022-11-07] MEDS: PANTOPRAZOLE SODIUM IV 40 MG VIAL 80 MG IV PUSH (17:20)
[2022-11-07 17:28] LABS: NT Pro B Type Natriuretic Pept 6100 pg/mL (5-100)
[2022-11-07 17:35] LABS: Troponin I 0.177 ng/mL (0.000-0.034)
[2022-11-07 17:54] LABS: Iron 21 ug/dL (37-170)
[2022-11-07 18:03] LABS: Percent Iron Saturation 4 % (20-50)
[2022-11-07 18:15] LABS: Hematocrit 24.5 % (37.0-47.0)
[2022-11-07 18:28] LABS: Hemoglobin 5.7 g/dL (12.0-15.0)
--- NOTE | 2022-11-07 19:30 | PM.IMHP ---
H&P: HPI History of Present Illness Date/Time: 11/07/22 19:30 Chief Complaint: Low oxygen levels. Narrative: This is a pleasant 72-year-old female smoker with history of pulmonary embolism at the time of an active COVID infection who presented to the emergency department from her doctor's office for evaluation after she was found to have low oxygen levels. Over the last couple of weeks she has noticed some swelling her feet addition to progressive shortness of breath on lesser and lesser exertion. She has also a bit a cough though it has been nonproductive. She made appointment with her doctor today for evaluation and her SpO2 was reportedly 80% on room air and she was directed to the ED. she is currently on 4 liters nasal cannula with an SpO2 in the upper 90s. She was tachycardic in a bit tachypneic on arrival to the ED. Workup was significant for WBC of 13.9, hemoglobin 5.7, hematocrit 24.5%, MCV 70.6, proBNP 6100, troponin 0.177. She was surprised that her hemoglobin levels were that low. She has not noticed any blood in her stools or dark stools. She does mention however that over the last month she has had intermittent lower abdominal cramping which seems to improve with bowel movements. She has not had epigastric pain and she denies heartburn indigestion. Appetite has been fine and she has not had any nausea or vomiting. Her weight has remained stable. She has no known history of cardiac disease and she denies exertional chest pain. She has not had pleuritic pain, orthopnea, or paroxysmal nocturnal dyspnea. However she does admit that she does not sleep well and she wakes up frequently ?because I am always thinking about something.? She apparently had a sleep study done in the last year which was negative for sleep apnea. Review of Systems Review of Systems: Twelve systems were reviewed and are negative except for as per HPI. [facility] Past Medical History Medical History (Updated 11/08/22 @ 00:17 by Shasha Doe PA-C) Hypertension Pneumonia due to COVID-19 virus (12/2021) Pulmonary embolism without acute cor pulmonale (12/2021) Tobacco dependence Tobacco dependence Surgical History Surgical History (Updated 11/08/22 @ 00:13 by Shasha Doe PA-C) History of eye surgery Family History Family History Father Family history of malignant neoplasm Patient's father is Sibling Family history of malignant neoplasm Family history of heart disease in male family member before age 55 Mother Family history of heart disease in male family member before age 55 Patient's mother is Other Hypertension Social History Social History (Updated 11/08/22 @ 00:13 by Shasha Doe PA-C) Social History: Surrogate medical decision maker: Tayekal Mcgill, spouse. Code status: Full code. Smoking packs per day: 1 Smoking cigarettes per day: 20.0 Years smoked: 60 Smoking pack-years: 60.00 Smoking status: Current every day smoker Tobacco type: cigarettes Second hand tobacco smoke exposure: No Alcohol intake: current Spiritual care concerns: No Meds Home Medications and Allergies Home Medications Medication Instructions Recorded Confirmed Type albuterol sulfate 90 mcg/actuation 2 puff inhalation Q6HRT #90 grams 12/26/21 Rx aerosol inhaler (Proventil HFA) apixaban 5 mg tablet (Eliquis) 5 mg PO Q12HR #30 tabs 12/26/21 Rx dexamethasone 2 mg tablet 6 mg PO DAILY@0800 #8 tabs 12/26/21 Rx furosemide 40 mg tablet 40 mg PO DAILY #30 tabs 12/26/21 Rx Allergies Allergy/AdvReac Type Severity Reaction Status Date / Time No Known Allergies Allergy Verified 12/24/21 21:16 Vital Signs Vital Signs - 24 hr 11/07/22 13:08 11/07/22 13:15 11/07/22 15:22 Temperature 97.5 F L 99.4 F Pulse Rate 113 H 114 H Respiratory Rate 20 18 Blood Pressure 108/47 L 113/79 Pulse Oximetry 80 L 92 98 Ox
[2022-11-07 21:19] LABS: Lactic Acid Reflex 1.4 mmol/L (0.7-2.0)
[2022-11-07 21:27] LABS: Troponin I 0.201 ng/mL (0.000-0.034)
--- NOTE | 2022-11-07 23:04 | PC.NURSE ---
2300-CHARGE NURSE AND ERP NOTIFIED OF CURRENT BLOOD PRESSURE READING. PATIENT MOVED TO ER 22.
--- NOTE | 2022-11-07 23:13 | PCRCNOTE ---
Window of time for administration has passed. See next scheduled administration.
[2022-11-08] VITALS (33 sets, daily range): BP systolic 108–143; BP diastolic 47–87; PULSE 78–117; RESP 18–31; TEMP 36.6–36.8; O2SAT 92–100; BMI 25.6; BMI 28.4
--- NOTE | 2022-11-08 00:23 | ECHO_ITS ---
Patient Info Name: Georgette Mcgill Age: 72 years : 1950 Gender: Female Ht: 60 in Wt: 131 lbs BSA: 1.60 m2 HR: 102 bpm BP: 143 / 47 mmHg Heart Rhythm: Sinus Rhythm Technical Quality: Fair Exam Date: 11/08/2022 8:33 AM Exam Location: [facility] Patient Status: Outpatient Admit Date: 11/07/2022 Staff Ordering Physician: Shasha Doe PA-C Senior Oracle Database Developer: Dayan Swanson RDCS Attending Provider: Tiana Menon MD Referring Physician: Nader ECHEVARRIA; Exam Type: CA echo doppler color flow Study Info Indications - Edema, pleural effusion, hypertension Complete two-dimensional, color flow and Doppler transthoracic echocardiogram is performed. Summary 1. Complete two-dimensional, color flow and Doppler transthoracic echocardiogram is performed. 2. Normal left and right ventricular size and systolic function. 3. Trace amount of mitral valve regurgitation. Left Ventricle Left ventricular chamber dimension is normal. Left ventricular systolic function is normal, estimated at 60-65%. The left ventricular diastolic function is normal. Right Ventricle Right ventricular chamber dimension is normal. Left Atria Left atrial chamber dimension is normal. Right Atria Right atrial chamber dimension is normal. Aortic Valve The aortic valve is normal. Pulmonic Valve The pulmonic valve is not well visualized. Mitral Valve The mitral valve has normal leaflets. There is trace mitral valve regurgitation. Tricuspid Valve The tricuspid valve leaflets are normal. Pericardium/Pleural The pericardium appears normal. Aorta The aortic root size at the sinus of Valsalva is normal. Left Ventricular Outflow Tract Name Value Normal LVOT 2D LVOT Diameter 2.0 cm LVOT Doppler LVOT Peak Gradient 4 mmHg LVOT Mean Gradient 2 mmHg LVOT VTI 19 cm LVOT VTI/AV VTI Ratio 0.7 LVOT Stroke Volume 60 ml LVOT CO 5.0 l/min LVOT CI 3.1 l/min/m2 Pulmonic Valve Name Value Normal RVOT Doppler RVOT Peak Gradient 2 mmHg PV Doppler PV Peak Gradient 4 mmHg Mitral Valve Name Value Normal MV Doppler MV Peak Gradient 9 mmHg MV Mean Gradient 3 mmHg MV Decel Bowie 1,342 cm/s2 MV PHT
[2022-11-08] MEDS: TUBING, BLOOD PLUM PUMP TUBING 1 EACH XX (01:10)
[2022-11-08] MEDS: SODIUM CHLORIDE 0.9% IV 250 ML 30 ML IV CONT (01:10)
[2022-11-08] MEDS: FUROSEMIDE INJ 40 MG/4 ML VIAL IV PUSH (01:35)
[2022-11-08 02:23] LABS: Troponin I 0.222 ng/mL (0.000-0.034)
[2022-11-08] MEDS: ALBUTEROL SULFATE NEB 2.5 MG/3 ML INH 5 MG INHALATION ×4 (03:15→19:52)
[2022-11-08] MEDS: IPRATROPIUM BR 0.02% INH SOLN 0.5 MG/2.5 ML VIAL INHALATION ×4 (03:15→19:53)
[2022-11-08 05:51] LABS: Hematocrit 33.2 % (37.0-47.0); Hemoglobin 8.9 g/dL (12.0-15.0); Mean Corpuscular HGB Conc 26.8 g/dl (32-36); Mean Corpuscular Hemoglobin 21.1 pg (26-34); Mean Corpuscular Volume 78.9 fl (80-100); Mean Platelet Volume 9.5 fl (7.4-10.4); Platelet Count Result 434 k/mm3 (150-375); Red Blood Count 4.21 M/mm3 (4.2-5.4); Red Cell Distribution Width 23.6 % (11.5-14.5); White Blood Count 19.6 K/mm3 (4.5-10.0)
[2022-11-08 06:13] LABS: Alanine Aminotransferase 24 U/L (6-35); Albumin Level 3.9 g/dL (3.5-5.1); Alkaline Phosphatase 87 U/L (38-126); Anion Gap 5 mmol/L (8-16); Aspartate Amino Transferase 28 U/L (14-36); Bilirubin,Total 1.1 mg/dL (0.2-1.3); Blood Urea Nitrogen 32 mg/dL (7-17); Calcium 7.9 mg/dL (8.4-10.2); Carbon Dioxide 34 mmol/L (22-30); Chloride 100 mmol/L (98-107); Estimated CRCL calculation 43 ml/min; Estimated Glomerular Filt Rate > 60; Glucose 143 mg/dL (65-110); Sodium 139 mmol/L (137-145)
--- NOTE | 2022-11-08 07:30 | WPDGICN ---
Assessment and Plan Assessment and plan (1) Microcytic anemia: Code(s): D50.9 - Iron deficiency anemia, unspecified Status: Acute Assessment and Plan: With low hemoglobin and low MCV the concern is that she may have chronic gastrointestinal blood loss from malignancy or other pathology. We will Eliquis and when she gets to the floor can begin a bowel prep for colonoscopy. She states that she has never been anemic in the past that she had recall. She denies any prior history of colon disorders or peptic ulcer disease. (2) Acute respiratory failure with hypoxia: Code(s): J96.01 - Acute respiratory failure with hypoxia Status: Acute Assessment and Plan: She has chronic lung disease and recently had COVID. Then she developed a pulmonary embolism last year. Her dyspnea has worsened over the last couple of weeks which is the reason she went to her physician's office yesterday (3) Pulmonary embolism without acute cor pulmonale: Onset Date: 12/2021 Qualifiers: Chronicity: acute Pulmonary embolism type: other Qualified Code(s): I26.99 - Other pulmonary embolism without acute cor pulmonale Code(s): I26.99 - Other pulmonary embolism without acute cor pulmonale Status: Acute Assessment and Plan: currently on Eliquis but of course we will hold this until her workup is complete GI Consult Note Consult date/time: 11/08/22 07:30 HPI: Georgette Mcgill is a 72 year old female Who presented to the emergency room yesterday with shortness of breath for several weeks. She has also had some chest pain. She is found to be markedly anemic. she denies seeing blood her stools. She is not a great historian. She has been on Eliquis because of pulmonary embolism. she had been to her doctor's office and was found have a low oxygen level and subsequently directed to the emergency room. She was found have 80% SpO2 on room air. In the emergency room [place] [address] and hemoglobin of 5.7. MCV is also low at 70. She denies seeing any blood her stools are having dark stools but has had some lower abdominal cramping lately. She denies nausea or vomiting or change in appetite. Review of Systems Review of Systems: All systems reviewed & are unremarkable except as noted in HPI and below PMFSH Past Medical History Medical History Hypertension Pneumonia due to COVID-19 virus (12/2021) Pulmonary embolism without acute cor pulmonale (12/2021) Tobacco dependence Tobacco dependence Surgical History Surgical History History of eye surgery Family History Family History Father Family history of malignant neoplasm Patient's father is Sibling Family history of malignant neoplasm Family history of heart disease in male family member before age 55 Mother Family history of heart disease in male family member before age 55 Patient's mother is Other Hypertension Social History Social History Social History: Surrogate medical decision maker: Taye Mcgill, spouse. Code status: Full code. Smoking packs per day: 1 Smoking cigarettes per day: 20.0 Years smoked: 60 Smoking pack-years: 60.00 Smoking status: Current every day smoker Tobacco type: cigarettes Second hand tobacco smoke exposure: No Alcohol intake: current Spiritual care concerns: No Meds Home Medications and Allergies Home Medications Medication Instructions Recorded Confirmed Type albuterol sulfate 90 mcg/actuation 2 puff inhalation Q6HRT #90 grams 12/26/21 11/08/22 Rx aerosol inhaler (Proventil HFA) apixaban 5 mg tablet (Eliquis) 5 mg PO Q12HR #30 tabs 12/26/21 11/08/22 Rx dexamethasone 2 mg
--- NOTE | 2022-11-08 07:58 | PM.IMPN ---
Progress Note: A&P Assessment and Plan (1) Acute respiratory failure with hypoxia: Code(s): J96.01 - Acute respiratory failure with hypoxia Status: Acute Assessment and Plan: possible underlying COPD given long-term history of smoking, congestive heart failure, . She has a history of pulmonary embolism last year at the time of an active COVID infection Depending on her course, may repeat CTA of the chest may be prudent. Wean oxygen as tolerated. (2) Symptomatic anemia: Code(s): D64.9 - Anemia, unspecified Status: Acute Assessment and Plan: Suspected occult GI blood loss. Iron studies and stool for occult blood pending. She is being transfused to a stable hemoglobin. No history of GERD or peptic ulcers. Dr. Manuel was consulted by the ED physician f/w recs. (3) Microcytic anemia: Code(s): D50.9 - Iron deficiency anemia, unspecified Status: Acute Assessment and Plan: Plan is as detailed above. (4) Leukocytosis: Code(s): D72.829 - Elevated white blood cell count, unspecified Status: Acute Assessment and Plan: chest x-ray does show bibasilar airspace disease which may be atelectasis however cannot rule out pneumonia continue with azithromycin and ceftriaxone for now. f/uSputum and blood cultures ordered. (5) Hypertension: Code(s): I10 - Essential (primary) hypertension Status: Acute Assessment and Plan: low end of normal. Antihypertensives on hold. Hold IV fluid resuscitation as well given evidence of possible volume overload. (6) Elevated troponin: Code(s): R77.8 - Other specified abnormalities of plasma proteins Status: Acute Assessment and Plan: Patient is not having any chest pain whatsoever. This may very well be elevated in the setting of profound anemia and findings suggestive of congestive heart failure which could be due to high-output failure. Again, pulmonary embolism is considered. Echocardiogram ordered for a.m. Hold on diuretics for now given intermittent soft blood pressures though she may need some Lasix between units of blood. (7) Congestive heart failure: Code(s): I50.9 - Heart failure, unspecified Status: Acute Assessment and Plan: She has no history of CHF but there are several findings concerning for such including the development of lower extremity edema, pleural effusions, elevated troponin, and elevated BNP. Echocardiogram ordered. (8) Tobacco dependence: Code(s): F17.200 - Nicotine dependence, unspecified, uncomplicated Status: Acute Assessment and Plan: Smoking cessation is imperative in was discussed. She declines the need for nicotine patch. Subjective Date/time seen: 11/08/22 07:58 Saw and examined patient in the ED. Patient denies abdomen pain, nausea vomiting diarrhea. Patient also denies chest pain, shortness a breath. Blood pressure stable. No new event or the night Exam Const: Other: Mildly ill-appearing female sitting up in bed in no acute distress. Weight: 59.6 kilograms. BMI: 25.7. HENMT: Other: Normocephalic, atraumatic. Nares patent bilaterally. Moist mucous membranes. Eyes: Other: Pupils are reactive. Extraocular motions intact. Sclerae anicteric. Pale conjunctiva. Neck: Other: Supple. No JVD. Resp: Other: Mildly tachypneic with conversational dyspnea, speaking in 5 to 6 word sentences. Lung sounds are diminished at the bases. Cardio: Other: Regular rate rhythm with normal S1-S2. GI: Other: Abdomen is soft, nontender, and nondistended with positive bowel sounds. Skin: Other: Warm, dry, and pale. Neuro: Other: Alert. Cranial nerves 2-12 are grossly intact. No gross focal deficits to casual conversation. Extrem: Other: No cyanosis or clubbing. 1+ pedal edema bilaterally up to mid auguste. No palpable knots or cords. Psych: Other: Pleasant and cooperative with ap
[2022-11-08] MEDS: ENOXAPARIN 40 MG/0.4 ML SYRINGE SUB-Q (09:56)
--- NOTE | 2022-11-08 10:06 | PC.NURSE ---
attempted to obtain sputum culture. pt states she cannot produce any sputum at this time. specimen cup at bedside when able to obtain.
--- NOTE | 2022-11-08 13:54 | PC.NURSE ---
Patient fell asleep on 4L oxygen and O2 sat dropped to 84%. Patient repositioned and O2 put to 5L. Patient currently 92% on 5L. Will call Dr Menon to inform him of patient change in status
--- NOTE | 2022-11-08 14:21 | PC.NURSE ---
Able to take patient back down to 4L NC.
[2022-11-08 14:34] LABS: Alveolar/Arterial O2 Gradient 102.2 mmHg; Base Excess ABG 6.6 mEq/l (+/-2.0); Fractional Inspired Oxygen 36 %; HCO3 ABG 34.4 mEq/l (22.0-26.0); Oxygen Content ABG 12.9 %vol (16.0-22.0); Oxygen Saturation ABG 93.1 % (95.0-100.0); Oxyhemoglobin 91.7 % THb (90.0-100.0); PO2 FiO2 Ratio Arterial Blood 2.06 %; Total Hemoglobin 9.9 g/dL (12.0-18.0); pH ABG 7.313 (7.350-7.450)
[2022-11-08 14:36] LABS: Device NASAL CANNULA; Modified Allen's Test Pass; PCO2 ABG 69.4 mmHg (35.0-45.0); Site Drawn RIGHT RADIAL
--- NOTE | 2022-11-08 14:41 | PC.NURSE ---
Dr Menon called with results from ABG. He would like a repeat ABG in 2 hours. No new orders at this time. Will call for STAT ABG if patient status changes.
--- NOTE | 2022-11-08 14:50 | PC.NURSE ---
Verbal order from Dr Menon to be placed on cardiac diet. Food tray ordered for patient
--- NOTE | 2022-11-08 16:07 | PC.NURSE ---
Patient is more awake and alert at this time. Patient sitting in bed eating dinner.
[2022-11-08 16:18] LABS: Hemoglobin 9.1 g/dL (12.0-15.0)
--- NOTE | 2022-11-08 17:12 | PCRCNOTE ---
pt. refused repeat abg, provider aware.
--- NOTE | 2022-11-08 18:41 | PC.NURSE ---
Respiratory came down at about 1700 for repeat ABG and patient refused saying it hurt too much . Respiratory called Dr Menon and he gave verbal order to cancel the order.
--- NOTE | 2022-11-08 18:53 | PC.NURSE ---
Patient becoming more lethargic at this time. This RN spoke with CHENTE Lepe about with speaking with patient about getting another ABG. Sherley to come speak with patient.
[2022-11-08] MEDS: LORazepam INJ (*CRX) 2 MG/ML VIAL 1 MG IV PUSH (19:34)
--- NOTE | 2022-11-08 20:10 | PC.NURSE ---
Daughter- Salome [phone]. Would like calls with updates.
--- NOTE | 2022-11-08 21:03 | PCRCNOTE ---
Pt will not keep BIPAP on ED or IMU, pt is refusing BIPAP. Pt is a full code. Pt on 4 L NC, Sp02 93%, RR-15.
--- NOTE | 2022-11-08 22:34 | ADMGEN ---
This patient, Georgette Mcgill, was admitted to IMU Room 200-01 on 11/08/22 at 2057. Patient/family oriented to hospital policies and general routines including ID bracelet, bed and alarms, visiting hours, pain management, procedures, bathroom and other care routines, personal items, smoking policy, room service/diet, and visiting hours. Information on how to activate the Rapid Response Team has been discussed. Patient/Family are encouraged to report perceived risks to care and to ask questions if they do not understand what they are told or what they should do.
[2022-11-09] VITALS (22 sets, daily range): BP systolic 117–145; BP diastolic 40–61; PULSE 88–123; RESP 16–38; TEMP 36.4–37.4; O2SAT 86–100
[2022-11-09] MEDS: LORazepam INJ (*CRX) 2 MG/ML VIAL 1 MG IV PUSH (01:39)
--- NOTE | 2022-11-09 08:13 | PM.IMPN ---
Progress Note: A&P Assessment and Plan (1) Acute respiratory failure with hypoxia: Code(s): J96.01 - Acute respiratory failure with hypoxia Status: Acute Assessment and Plan: possible underlying COPD given long-term history of smoking, congestive heart failure, . She has a history of pulmonary embolism last year at the time of an active COVID infection Wean oxygen as tolerated. (2) Symptomatic anemia: Code(s): D64.9 - Anemia, unspecified Status: Acute Assessment and Plan: Suspected occult GI blood loss. Iron studies and stool for occult blood pending. She is being transfused to a stable hemoglobin. No history of GERD or peptic ulcers. Dr. Manuel was consulted by the ED physician plan colonoscopy to rule out malignancy (3) Microcytic anemia: Code(s): D50.9 - Iron deficiency anemia, unspecified Status: Acute Assessment and Plan: Plan is as detailed above. (4) Leukocytosis: Code(s): D72.829 - Elevated white blood cell count, unspecified Status: Acute Assessment and Plan: chest x-ray does show bibasilar airspace disease which may be atelectasis however cannot rule out pneumonia continue with azithromycin and ceftriaxone for now. f/uSputum and blood cultures ordered. (5) Hypertension: Code(s): I10 - Essential (primary) hypertension Status: Acute Assessment and Plan: low end of normal. Antihypertensives on hold. Hold IV fluid resuscitation as well given evidence of possible volume overload. (6) Elevated troponin: Code(s): R77.8 - Other specified abnormalities of plasma proteins Status: Acute Assessment and Plan: Possible demand ischemia EKG shows sinus rhythm, no specific data changes the echocardiogram shows normal EF, Follow up EKG, troponin Consult cardiology for evaluation (7) Congestive heart failure: Code(s): I50.9 - Heart failure, unspecified Status: Acute Assessment and Plan: She has no history of CHF but there are several findings concerning for such including the development of lower extremity edema, pleural effusions, elevated troponin, and elevated BNP. Echocardiogram ordered. (8) Tobacco dependence: Code(s): F17.200 - Nicotine dependence, unspecified, uncomplicated Status: Acute Assessment and Plan: Smoking cessation is imperative in was discussed. She declines the need for nicotine patch. Subjective Date/time seen: 11/09/22 08:13 Saw and examined the patient today. Patient is lethargic, reluctant to answer questions. Patient has no obvious distress, denies chest pain, but has some shortness of breath. Per nurse report, patient declines labs test Afebrile, hemodynamically stable Exam Const: Other: Mildly ill-appearing female sitting up in bed in no acute distress. BMI: 25.7. Lethargic HENMT: Other: Normocephalic, atraumatic. Nares patent bilaterally. Moist mucous membranes. Eyes: Other: Pupils are reactive. Extraocular motions intact. Sclerae anicteric. Pale conjunctiva. Neck: Other: Supple. No JVD. Resp: Other: Mildly tachypneic, somel dyspnea, . Lung sounds are diminished at the bases. Cardio: Other: Regular rate rhythm with normal S1-S2. GI: Other: Abdomen is soft, nontender, and nondistended with positive bowel sounds. Skin: Other: Warm, dry, and pale. Neuro: Other: Alert. Cranial nerves 2-12 are grossly intact. No gross focal deficits to casual conversation. Extrem: Other: No cyanosis or clubbing. 1+ pedal edema bilaterally up to mid auguste. No palpable knots or cords. Psych: Other: Pleasant and cooperative with appropriate mood and affect. Objective Data Vital Signs Vital Signs: Vital Signs - 24 hr 11/08/22 10:04 11/08/22 10:30 11/08/22 10:40 Temperature Pulse Rate 100 94 98 Respiratory Rate 24 H 25 H 31 H Blood Pressure 108/58 L Pulse Oximetry 98 Oxyg
--- NOTE | 2022-11-09 08:24 | ECG_ITS ---
Measurements Intervals [place] Rate: 98 P: 76 OK: 210 QRS: 34 QRSD: 110 T: 46 QT: 333 QTc: 426 Interpretive Statements SINUS RHYTHM WITH FIRST DEGREE AV BLOCK LOW QRS VOLTAGE IN PRECORDIAL LEADS INCOMPLETE RIGHT BUNDLE BRANCH BLOCK BASELINE WANDER- I, II, AVR, AVF ABNORMAL ECG COMPARED TO ECG 11/07/2022 13:29:05 SINUS RHYTHM NOW PRESENT Electronically Signed On 11-09-2022 9:58:36 [employer]OVER [employer] by Quinton España D.O.
[2022-11-09] MEDS: ALBUTEROL SULFATE NEB 2.5 MG/3 ML INH 5 MG INHALATION ×3 (10:13→20:13)
[2022-11-09] MEDS: IPRATROPIUM BR 0.02% INH SOLN 0.5 MG/2.5 ML VIAL INHALATION ×3 (10:14→20:13)
--- NOTE | 2022-11-09 12:27 | WPDGIPROGNO ---
Progress Note: A&P Assessment and Plan (1) Microcytic anemia: Code(s): D50.9 - Iron deficiency anemia, unspecified Status: Acute Assessment and Plan: With low hemoglobin and low MCV the concern is that she may have chronic gastrointestinal blood loss from malignancy or other pathology. We will Eliquis and when she gets to the floor can begin a bowel prep for colonoscopy. She states that she has never been anemic in the past that she had recall. She denies any prior history of colon disorders or peptic ulcer disease. once 11/09/2022 her hemoglobin is up to 9.1. Ideally we would prepare her for colonoscopy but she is to use sleepy and lethargic to consider prep this time (2) Acute respiratory failure with hypoxia: Code(s): J96.01 - Acute respiratory failure with hypoxia Status: Acute Assessment and Plan: She has chronic lung disease and recently had COVID. Then she developed a pulmonary embolism last year. Her dyspnea has worsened over the last couple of weeks which is the reason she went to her physician's office yesterday (3) Pulmonary embolism without acute cor pulmonale: Onset Date: 12/2021 Qualifiers: Chronicity: acute Pulmonary embolism type: other Qualified Code(s): I26.99 - Other pulmonary embolism without acute cor pulmonale Code(s): I26.99 - Other pulmonary embolism without acute cor pulmonale Status: Acute Assessment and Plan: currently on Eliquis but of course we will hold this until her workup is complete (4) Leukocytosis: Code(s): D72.829 - Elevated white blood cell count, unspecified Status: Acute Assessment and Plan: chest x-ray does show bibasilar airspace disease which may be atelectasis however cannot rule out pneumonia continue with azithromycin and ceftriaxone for now. f/uSputum and blood cultures ordered. (5) Elevated troponin: Code(s): R77.8 - Other specified abnormalities of plasma proteins Status: Acute Assessment and Plan: Possible demand ischemia EKG shows sinus rhythm, no specific data changes the echocardiogram shows normal EF, Follow up EKG, troponin Consult cardiology for evaluation (6) Altered mental status: Code(s): R41.82 - Altered mental status, unspecified Status: Acute Assessment and Plan: when I met her in in the emergency room yesterday she was somewhat drowsy. Today she is much more lethargic. Subjective Date/time seen: 11/09/22 12:27 she is currently on her CPAP and very somnolent. It is difficult to get her to respond. Exam Resp: Auscultation: clear to auscultation bilaterally Cardio: Rhythm: regular rhythm GI: Inspection: normal to inspection GI Palp: Yes Soft to palpation and No Tenderness to palpation present (GI) Auscultation: normal bowel sounds Skin: General skin exam: no ecchymosis, no purpura and pallor Neuro: General: patient oriented x3 Objective Data Vital Signs Vital Signs: Vital Signs - 24 hr 11/08/22 14:20 11/08/22 14:44 11/08/22 13:30 Temperature Pulse Rate 96 98 86 Respiratory Rate 18 18 23 H Blood Pressure Pulse Oximetry 95 Oxygen Delivery Oxygen Flow Rate Fraction of Inspired Oxygen 11/08/22 14:00 11/08/22 14:30 11/08/22 15:45 Temperature Pulse Rate 86 97 89 Respiratory Rate 21 H 20 21 H Blood Pressure Pulse Oximetry 93 96 98 Oxygen Delivery Oxygen Flow Rate Fraction of Inspired Oxygen 11/08/22 17:16 11/08/22 21:09 11/08/22 19:52 Temperature Pulse Rate 101 H Respiratory Rate 28 H Blood Pressure 119/56 L Pulse Oximetry 94 93 98 Oxygen Delivery Nasal Cannula Oxygen Flow Rate Fraction of Inspired Oxygen 11/08/22 21:13 11/08/22 21:30 11/09/22 00:00 Temperature 36.6 C 37.4 C Pulse Rate 106 H 106 H 106 H Respiratory Rate 26 H 26 H 28 H Blood Pressure 132/62 135/49 L Pulse Oximetry 92 92 92 Oxygen Delivery Nasal Ca
--- NOTE | 2022-11-09 13:37 | PM.CNPUL ---
Assessment and Plan Assessment and plan (1) Acute respiratory failure with hypoxia and hypercapnia: Code(s): J96.01 - Acute respiratory failure with hypoxia; J96.02 - Acute respiratory failure with hypercapnia Status: Acute Assessment and Plan: She has had worsening symptoms with shortness of breath, declining mental status, more daytime sleepiness, swelling admitted with elevated pCO2 and low O2. She has not been on O2 in the past. Has not been treated for COPD, had a sleep test in the past, all symptoms are much worse. She has not been agreeable to having testing recommended by Dr. Mayfield, does not use any treatment at home for COPD other than a rescue inhaler prescribed when she was discharged after COVID, just started using this recently. Current BiPAP settings : 12/ with rate 16, 40% O2, TV > 500 ml; she is spontaneously breathing with a rate of 21-28. Her saturation on the monitor is 96-97% with an increase in O2 to 45%. She refused wearing BiPAP last night, today is not fighting using it which is concerning for worsening hypercapnia. Lower O2 to avoid CO2 retention, increase IPAP to 14 cm to improve minute ventilation, repeat ABG Her Saturation is now 96-97% on FiO2 45%, this is too high, and O2 has been increased steadily during admission. GOAL IS SATURATION 90%; if saturation is over 94%, LOWER O2. She will need to go home on PAP therapy. She has acute on chronic hypercapnic failure. Her serum carbon oxide was elevated December 2021, consistent with hypercapnia. Depending on the ABGs, she may be a candidate for NPPV at home without having a sleep study. She did not have an arterial blood gas at that time. She has resisted efforts to manage lung disease and sleep apnea. We will also continue her antibiotics, steroids, maintain adequate blood counts. I agree with Dr. Manuel, she is not a good candidate for endoscopy until her acute pulmonary issues have been improved. IV Solumedrol 40 mg Q 8 hours for possible COPD exacerbation, although may have a component of cardiac dysfunction. Echo shows normal EF without valve abnormality. She has had swelling, weight gain, shortness of breath, ? cardiac as part of presentation; Cardiology consult is pending. Some of shortness of breath is due to severe iron deficiency anemia without source of blood loss. (2) COPD (chronic obstructive pulmonary disease): Code(s): J44.9 - Chronic obstructive pulmonary disease, unspecified Status: Acute Assessment and Plan: This is a presumed condition; she is a smoker, stopped briefly with COVID and PE in 2021, currently smoking regularly, not on any baseline controller medications, and has refused to have PFTs or other studies. She is not alert enough to use inhalers. Nebulized treatments are ordered, and these may add benefit. Needs out patient PFTs 4-6 weeks after discharge, walk study prior to discharge, cardiopulmonary rehab in future. She will need triple therapy inhaler, and further evaluation of symptoms. (3) Tobacco dependence: Code(s): F17.200 - Nicotine dependence, unspecified, uncomplicated Status: Acute Assessment and Plan: Started smoking in her early teens, stopped briefly with COVID and PEs in Dec 2021, now smoking less than a pack per day, a half every few hours, a carton lasts almost 2 weeks. buys the cigarettes. Stopping smoking is essential. History of Present Illness History of Present Illness Consult date: 11/09/22 Requesting physician: Tiana Menon MD Chief complaint: Hypercapnic hypoxemic Respiratory Failure Narrative: Patient was seen with Mr. Mcgill and the patient's daughter, Salome, at the bedside. Was seen 13:45 Friday. NEW :Georgette Mcgill is
[2022-11-09 15:01] LABS: Hematocrit 33.2 % (37.0-47.0); Hemoglobin 8.6 g/dL (12.0-15.0); Mean Corpuscular HGB Conc 25.9 g/dl (32-36); Mean Platelet Volume 9.5 fl (7.4-10.4); Platelet Count Result 368 k/mm3 (150-375); Red Cell Distribution Width 25.5 % (11.5-14.5); White Blood Count 11.9 K/mm3 (4.5-10.0)
[2022-11-09 15:18] LABS: Anion Gap 3 mmol/L (8-16); Blood Urea Nitrogen 27 mg/dL (7-17); Calcium 8.1 mg/dL (8.4-10.2); Carbon Dioxide 37 mmol/L (22-30); Chloride 100 mmol/L (98-107); Estimated CRCL calculation 70 ml/min; Estimated Glomerular Filt Rate > 60; Glucose 134 mg/dL (65-110); Potassium 4.4 mmol/L (3.4-5.0); Sodium 140 mmol/L (137-145)
[2022-11-09 16:03] LABS: Troponin I 0.084 ng/mL (0.000-0.034)
[2022-11-09] MEDS: acetaZOLAMIDE SODIUM FOR INJ 500 MG VIAL 250 MG IV PUSH (19:20)
[2022-11-09 19:48] LABS: Alveolar/Arterial O2 Gradient 135.7 mmHg; Base Excess ABG 5.8 mEq/l (+/-2.0); Fractional Inspired Oxygen 40 %; HCO3 ABG 32.9 mEq/l (22.0-26.0); Oxygen Content ABG 12.9 %vol (16.0-22.0); Oxygen Saturation ABG 94.4 % (95.0-100.0); Oxyhemoglobin 92.6 % THb (90.0-100.0); PO2 ABG 77.6 mmHg (80.0-100.0); PO2 FiO2 Ratio Arterial Blood 1.94 %; Total Hemoglobin 9.8 g/dL (12.0-18.0); pH ABG 7.339 (7.350-7.450)
[2022-11-09 19:51] LABS: Device BIPAP; Modified Allen's Test Pass; PCO2 ABG 62.5 mmHg (35.0-45.0); Site Drawn RIGHT RADIAL
[2022-11-09 19:52] LABS: Expiratory Pressure 6 cmH2O; Inspiratory Pressure 14 cmH2O
[2022-11-09] MEDS: methylPREDNISolone SOD SUCC 40 MG VIAL IV PUSH (23:54)
[2022-11-10] VITALS (20 sets, daily range): BP systolic 67–157; BP diastolic 49–76; PULSE 78–102; RESP 16–32; TEMP 36.3–37.1; O2SAT 93–100
[2022-11-10] MEDS: ALBUTEROL SULFATE NEB 2.5 MG/3 ML INH 5 MG INHALATION ×4 (02:27→20:44)
[2022-11-10] MEDS: IPRATROPIUM BR 0.02% INH SOLN 0.5 MG/2.5 ML VIAL INHALATION ×4 (02:27→20:44)
[2022-11-10 05:13] LABS: Hematocrit 32.6 % (37.0-47.0); Hemoglobin 8.4 g/dL (12.0-15.0); Mean Corpuscular HGB Conc 25.8 g/dl (32-36); Mean Corpuscular Hemoglobin 21.3 pg (26-34); Mean Corpuscular Volume 82.5 fl (80-100); Mean Platelet Volume 9.6 fl (7.4-10.4); Platelet Count Result 343 k/mm3 (150-375); Red Blood Count 3.95 M/mm3 (4.2-5.4); Red Cell Distribution Width 26.5 % (11.5-14.5); White Blood Count 10.3 K/mm3 (4.5-10.0)
[2022-11-10 05:28] LABS: Anion Gap 4 mmol/L (8-16); Blood Urea Nitrogen 25 mg/dL (7-17); CRP 4.7 mg/dL (<1.0); Carbon Dioxide 35 mmol/L (22-30); Chloride 100 mmol/L (98-107); Estimated CRCL calculation 46 ml/min; Estimated Glomerular Filt Rate > 60; Glucose 146 mg/dL (65-110); Potassium 3.9 mmol/L (3.4-5.0); Sodium 139 mmol/L (137-145)
[2022-11-10] MEDS: methylPREDNISolone SOD SUCC 40 MG VIAL IV PUSH ×3 (06:23→22:44)
--- NOTE | 2022-11-10 08:08 | PM.IMPN ---
Progress Note: A&P Assessment and Plan (1) Acute respiratory failure with hypoxia: Code(s): J96.01 - Acute respiratory failure with hypoxia Status: Acute Assessment and Plan: possible underlying COPD given long-term history of smoking, and COPD exacerbation Continue DuoNeb scheduled and albuterol nebulizer p.r.n. Continue methylprednisolone IV q.8 hours scheduled Continue azithromycin and ceftriaxone IV Patient needs BiPAP in the night Appreciate tool setter consultation (2) Symptomatic anemia: Code(s): D64.9 - Anemia, unspecified Status: Acute Assessment and Plan: Suspected occult GI blood loss. Iron studies and stool for occult blood pending. She is being transfused to a stable hemoglobin. No history of GERD or peptic ulcers. Dr. Manuel was consulted by the ED physician plan colonoscopy to rule out malignancy when COPD exacerbation improves (3) Microcytic anemia: Code(s): D50.9 - Iron deficiency anemia, unspecified Status: Acute Assessment and Plan: Plan is as detailed above. (4) Leukocytosis: Code(s): D72.829 - Elevated white blood cell count, unspecified Status: Acute Assessment and Plan: chest x-ray does show bibasilar airspace disease which may be atelectasis however possible pneumonia continue with azithromycin and ceftriaxone for now. f/uSputum and blood cultures ordered. (5) Hypertension: Code(s): I10 - Essential (primary) hypertension Status: Acute Assessment and Plan: low end of normal. Antihypertensives on hold. Hold IV fluid resuscitation as well given evidence of possible volume overload. (6) Elevated troponin: Code(s): R77.8 - Other specified abnormalities of plasma proteins Status: Acute Assessment and Plan: Possible demand ischemia EKG shows sinus rhythm, no specific data changes the echocardiogram shows normal EF, Follow up EKG, troponin Consult cardiology for evaluation (7) Congestive heart failure: Code(s): I50.9 - Heart failure, unspecified Status: Acute Assessment and Plan: She has no history of CHF but there are several findings concerning for such including the development of lower extremity edema, pleural effusions, elevated troponin, and elevated BNP. Echocardiogram ordered. (8) Tobacco dependence: Code(s): F17.200 - Nicotine dependence, unspecified, uncomplicated Status: Acute Assessment and Plan: Smoking cessation is imperative in was discussed. She declines the need for nicotine patch. Plan . Condition is guarded, prognosis is poor. Patient cannot tolerate diet because of dysphagia. Speech therapist evaluates, recommends NPO. Patient is not a candidate for NG tube feeding because of her nose deformity. Need to discuss with patient's family about ongoing care, including pack tube feeding, or hospice care Subjective Date/time seen: 11/10/22 08:08 Saw on exam patient today, patient does not have apparent distress, nonverbal, somnolent. Patient cannot provide any information, patient does not have new issue events overnight Exam Const: Other: ill-appearing female sitting up in bed in no acute distress. BMI: 25.7. Lethargic HENMT: Other: Normocephalic, atraumatic. Nares patent bilaterally, destructed right naris. Moist mucous membranes. Eyes: Other: Pupils are reactive. Extraocular motions intact. Sclerae anicteric. Pale conjunctiva. Neck: Other: Supple. No JVD. Resp: Other: Mildly tachypneic, somel dyspnea, . Lung sounds are diminished at the bases. Cardio: Other: Regular rate rhythm with normal S1-S2. GI: Other: Abdomen is soft, nontender, and nondistended with positive bowel sounds. Skin: Other: Warm, dry, and pale. Neuro: Other: Confused, not oriented x3, deep tendon reflexes present. Extrem: Other: No cyanosis or clubbing. 1+ pedal edema bilaterally up to mi
--- NOTE | 2022-11-10 08:58 | PM.CNCAR ---
Assessment and Plan Assessment and plan (1) Acute respiratory failure with hypoxia and hypercapnia: Code(s): J96.01 - Acute respiratory failure with hypoxia; J96.02 - Acute respiratory failure with hypercapnia Status: Acute Assessment and Plan: 72-year-old female with CHF with preserved ejection fraction, COPD, recent pulmonary embolism (12/24/2021 CT chest), microcytic anemia, history of COVID 19 infection, tobacco abuse. Patient admitted to the hospital with worsening shortness of breath, found to have acute on chronic hypoxemic and hypercarbic respiratory failure with underlying COPD. Patient continues to smoke. Patient has mild troponin elevation, which is likely type 2 SC in the setting of respiratory failure. EKG does not show any acute ST segment abnormality. Overall LV systolic function preserved. -management of respiratory failure as per primary team and pulmonology. Patient currently receiving supplemental oxygen, bronchodilators, antibiotics and steroids. -may use diuretics on p.r.n. basis for any volume overload. (2) Elevated troponin: Code(s): R77.8 - Other specified abnormalities of plasma proteins Status: Acute Assessment and Plan: Likely type 2 SC, see above. Echo shows normal LV systolic function. No active cardiac ischemic symptoms at present. (3) Diastolic CHF: Code(s): I50.30 - Unspecified diastolic (congestive) heart failure Status: Acute Assessment and Plan: No significant volume overload present. May use diuretics on p.r.n. basis for any significant volume overload. (4) Microcytic anemia: Code(s): D50.9 - Iron deficiency anemia, unspecified Status: Acute Assessment and Plan: Gastroenterology workup is in progress. Patient recently had pulmonary embolism, and has been on apixaban previously. Her anticoagulation is on hold pending evaluation of anemia. If patient is not deemed to be a candidate for chronic anticoagulation, then would recommend IVC filter placement. (5) Tobacco abuse: Code(s): Z72.0 - Tobacco use Status: Acute Assessment and Plan: Smoking cessation counseling was done. Patient verbalized understanding. History of Present Illness History of Present Illness Consult date/time: 11/10/22 08:58 Reason For Visit: Hypercapnic hypoxemic Respiratory Failure Narrative: DATE OF CONSULT: 11/10/2022 REASON FOR CONSULT: Elevated troponin, elevated BNP REQUESTING PHYSICIAN:Tiana Menon MD CHIEF COMPLAINT: Worsening shortness of breath HPI: 72-year-old female with CHF with preserved ejection fraction, COPD, recent pulmonary embolism (12/24/2021 CT chest), microcytic anemia, history of COVID 19 infection, tobacco abuse. Patient presented to [facility] Emergency Room on 11/07/2022 with complaints of worsening shortness of breath for about 3 weeks, associated with cough and pleuritic chest pain. Patient has limited baseline mobility due to generalized weakness. She has occasional dizziness without syncope. EKG at presentation on the personal evaluation showed sinus tachycardia, heart rate 105 beats per minute, first-degree AV block, incomplete RBBB. Troponins minimally elevated with peak troponin level of 0.22 which is trending downwards. NT proBNP elevated at 6100. Chest x-ray showed Bibasilar airspace disease may represent atelectasis or pneumonia, small pleural effusions. Lower extremity venous duplex negative for DVT. Echocardiogram performed during this hospitalization reportedly showed normal LV systolic function without significant valvular abnormality. Review of Systems Review of Systems: General: Positive for generalized weakness and fatigue Psychological: Negative for anxiety, depression Ophthalmic: negative for loss of vision ENT: Negative for epistaxis, headaches Allergy and immunology: Negative for hives, nasal congestion Hematologic and lymphatic: Negative for overt bleedi
[2022-11-10 12:14] LABS: Add Urine Microscopic? NO; Appearance Urine Clear (Clear); Bilirubin Urine Negative (Negative); Blood Urine Negative (Negative); Color Urine Yellow (Yellow); Glucose Urine UA Negative (Negative); Ketones Urine Negative (Negative); Leukocyte Esterase Ur Negative LEU/UL (Negative); Nitrate Urine Negative (Negative); Protein Urine Negative (Negative); Urobilinogen Urine 0.2 mg/dL (<2.0); pH Urine 7.5 (5.0-9.0)
--- NOTE | 2022-11-10 14:06 | PM.PNPUL ---
Progress Note: A&P Assessment and Plan (1) Acute respiratory failure with hypoxia and hypercapnia: Code(s): J96.01 - Acute respiratory failure with hypoxia; J96.02 - Acute respiratory failure with hypercapnia Status: Acute Assessment and Plan: She was admitted with worsening shortness of breath, declining mental status, more daytime sleepiness, swelling, elevated pCO2 and low O2. She has not been on O2 in the past. Has not been treated for COPD, has declined requests for testing recommended by Dr. Mayfield, does not use any treatment at home for COPD other than a rescue inhaler prescribed when she was discharged after COVID, just started using this recently. She improved with BiPAP, solumedrol, empiric antibiotics, and will need to go home on PAP therapy. She will need to go home on PAP therapy.? She has acute on chronic hypercapnic failure.? Her serum carbon dioxide was elevated December 2021, consistent with hypercapnia.? Depending on the ABGs, she may be a candidate for NPPV at home without having a sleep study. She did not have an arterial blood gas at that time.? She has resisted efforts to manage lung disease and sleep apnea. We will also continue her antibiotics, steroids, maintain adequate blood counts.? I agree with Dr. Manuel, she is not a good candidate for endoscopy until her acute pulmonary issues have been improved. Echo shows normal EF without valve abnormality. She has had swelling, weight gain, shortness of? breath, ? cardiac as part of presentation; Cardiology consult is pending. Some of shortness of breath is due to severe iron deficiency anemia without source of blood loss. (2) COPD (chronic obstructive pulmonary disease): Code(s): J44.9 - Chronic obstructive pulmonary disease, unspecified Status: Acute Assessment and Plan: This is a presumed condition; she is a smoker, stopped briefly with COVID and PE in 2021, currently smoking regularly, not on any baseline controller medications, and has refused to have PFTs or other studies. She is now alert enough to use inhalers. She is on nebulized treatments. Needs out patient PFTs 4-6 weeks after discharge, walk study prior to discharge, cardiopulmonary rehab in future. She will need triple therapy inhaler, and further evaluation of symptoms. Subjective Date/time seen: 11/10/22 14:06 Interval history: ESTABLISHED: Initial visit was Nov 09, 2022. Georgette Mcgill is a 72 year-old female with several weeks of shortness of breath, was at her doctor's office with low oxygen saturation of 80% on room air.? She also had significant anemia, H/ H was 5.8 and 24.7%.? She has been transfused with 2 units packed RBC, H/H improved, now 9.1/34%. She is a smoker, stopped smoking when she had COVID and pulmonary embolus Dec 2021, started again, now smoking less than a pack a day. Arterial blood gas November 08 shows pH 7.313 pCO2 69.4 PO2 74 HC03 34.4 93% on 4 L supplemental oxygen. Her chest x-ray does not show an obvious pneumonia, and she has not had fever, chills, thick sputum, chest pain or exposure to sick people. She stays at home, and with her , takes care of her 18 month old grandson 2-3 days a week. Family reports worsening exercise tolerance, increased daytime sleepiness, lower extremity swelling, poor appetite. She had poor response to BiPAP 10/08, had decreaed LOC which was still present Nov 09, so head CT was obtained. 11/09/22 - increased BiPAP settings 16/04, decreased O2 40%, 1 dose acetazolamide, head CT to rule out bleed with altered LOC on anticoagulants; ABG improved. 11/10/22 - Head CT today was negative, no acute intracranial abnormality. She is sitting up on the side of the bed, on 3 L/min, saturation 99%. She has clear thinking, was able to tell me about their son who 4 years ago. RN tells me she had acute urinary r
--- NOTE | 2022-11-10 16:08 | PM.IMPN ---
Progress Note: A&P Assessment and Plan (1) Acute respiratory failure with hypoxia: Code(s): J96.01 - Acute respiratory failure with hypoxia Status: Acute Assessment and Plan: possible underlying COPD given long-term history of smoking, and COPD exacerbation Continue DuoNeb scheduled and albuterol nebulizer p.r.n. Continue methylprednisolone IV q.8 hours scheduled Continue azithromycin and ceftriaxone IV Patient needs BiPAP in the night Appreciate body shop worker consultation (2) Symptomatic anemia: Code(s): D64.9 - Anemia, unspecified Status: Acute Assessment and Plan: Suspected occult GI blood loss. Iron studies and stool for occult blood pending. She is being transfused to a stable hemoglobin. No history of GERD or peptic ulcers. Dr. Manuel was consulted by the ED physician plan colonoscopy to rule out malignancy when COPD exacerbation improves (3) Microcytic anemia: Code(s): D50.9 - Iron deficiency anemia, unspecified Status: Acute Assessment and Plan: Plan is as detailed above. Hemoglobin stable (4) Leukocytosis: Code(s): D72.829 - Elevated white blood cell count, unspecified Status: Acute Assessment and Plan: chest x-ray does show bibasilar airspace disease which may be atelectasis however possible pneumonia continue with azithromycin and ceftriaxone for now. f/u Sputum and blood cultures ordered. (5) Hypertension: Code(s): I10 - Essential (primary) hypertension Status: Acute Assessment and Plan: low end of normal. Antihypertensives on hold. Hold IV fluid resuscitation as well given evidence of possible volume overload. (6) Elevated troponin: Code(s): R77.8 - Other specified abnormalities of plasma proteins Status: Acute Assessment and Plan: Possible demand ischemia EKG shows sinus rhythm, no specific data changes the echocardiogram shows normal EF, Follow up EKG, troponin Consult cardiology for evaluation (7) Congestive heart failure: Code(s): I50.9 - Heart failure, unspecified Status: Acute Assessment and Plan: She has no history of CHF but there are several findings concerning for such including the development of lower extremity edema, pleural effusions, elevated troponin, and elevated BNP. Echocardiogram ordered. (8) Tobacco dependence: Code(s): F17.200 - Nicotine dependence, unspecified, uncomplicated Status: Acute Assessment and Plan: Smoking cessation is imperative in was discussed. She declines the need for nicotine patch. Plan . Time Spent With Patient Time with patient: 25 - 35 minutes Subjective Date/time seen: 11/10/22 16:08 I saw and examined patient today. Patient lethargic, no obvious distress. Patient on nasal cannula 4 L per minutes. Patient still need the BiPAP during the night. Exam Const: Other: ill-appearing female sitting up in bed in no acute distress. BMI: 25.7. Lethargic HENMT: Other: Normocephalic, atraumatic. Moist mucous membranes. Eyes: Other: Pupils are reactive. Extraocular motions intact. Sclerae anicteric. Pale conjunctiva. Neck: Other: Supple. No JVD. Resp: Other: Mildly tachypneic, somel dyspnea, . Lung sounds are diminished at the bases. Cardio: Other: Regular rate rhythm with normal S1-S2. GI: Other: Abdomen is soft, nontender, and nondistended with positive bowel sounds. Skin: Other: Warm, dry, and pale. Neuro: Other: Confused, not oriented x3, deep tendon reflexes present. Extrem: Other: No cyanosis or clubbing. 1+ pedal edema bilaterally up to mid auguste. No palpable knots or cords. Psych: Other: Pleasant and cooperative with appropriate mood and affect. Objective Data Vital Signs Vital Signs: Vital Signs - 24 hr 11/09/22 18:00 11/09/22 20:26 11/09/22 20:26 Temperature Pulse Rate 123 H 93 Respiratory Rate 18 Blo
[2022-11-10] MEDS: ACETAMINOPHEN 325 MG TABLET 650 MG PO (18:04)
--- NOTE | 2022-11-10 18:45 | PC.NURSE ---
Patient refused bladder scan at 1840 for decreased urine output. Nurse to monitor.
[2022-11-11] VITALS (20 sets, daily range): BP systolic 119–139; BP diastolic 52–89; PULSE 59–105; RESP 16–24; TEMP 36–36.6; O2SAT 92–100
--- NOTE | 2022-11-11 03:59 | PCRCNOTE ---
RT was called to come look at pt BIPAP. RT was never notified BIPAP was being used. RT found pt alarms disable for the low MV, and apnea. pt removed from BIPAP. placed on 3 liters. RN informed
[2022-11-11] MEDS: ALBUTEROL SULFATE NEB 2.5 MG/3 ML INH 5 MG INHALATION ×4 (04:35→20:45)
[2022-11-11] MEDS: IPRATROPIUM BR 0.02% INH SOLN 0.5 MG/2.5 ML VIAL INHALATION ×4 (04:35→20:45)
--- NOTE | 2022-11-11 04:39 | PC.NURSE ---
11/11/22 Jennifer-John Sam RT notified with no answer. [employer] message left that this RN was placing the Pt on BIPAP.
[2022-11-11] MEDS: methylPREDNISolone SOD SUCC 40 MG VIAL IV PUSH (06:54)
--- NOTE | 2022-11-11 08:51 | PM.PNCARD ---
Progress Note: A&P Assessment and Plan (1) Acute respiratory failure with hypoxia and hypercapnia: Code(s): J96.01 - Acute respiratory failure with hypoxia; J96.02 - Acute respiratory failure with hypercapnia Status: Acute Assessment and Plan: 72-year-old female with CHF with preserved ejection fraction, COPD, recent pulmonary embolism (12/24/2021 CT chest), microcytic anemia, history of COVID 19 infection, tobacco abuse. Patient admitted to the hospital with worsening shortness of breath, found to have acute on chronic hypoxemic and hypercarbic respiratory failure with underlying COPD. Patient continues to smoke. Patient has mild troponin elevation, which is likely type 2 CA in the setting of respiratory failure. EKG does not show any acute ST segment abnormality. Overall LV systolic function preserved. -management of respiratory failure as per primary team and pulmonology. Patient currently receiving supplemental oxygen, bronchodilators, antibiotics and steroids. -may use diuretics on p.r.n. basis for any volume overload. (2) Elevated troponin: Code(s): R77.8 - Other specified abnormalities of plasma proteins Status: Acute Assessment and Plan: Likely type 2 CA, see above. Echo shows normal LV systolic function. No active cardiac ischemic symptoms at present. (3) Diastolic CHF: Code(s): I50.30 - Unspecified diastolic (congestive) heart failure Status: Acute Assessment and Plan: Not in decompensated heart failure. May use p.r.n diuretic as appropriate (4) Microcytic anemia: Code(s): D50.9 - Iron deficiency anemia, unspecified Status: Acute Assessment and Plan: Gastroenterology workup is in progress. Patient recently had pulmonary embolism, and has been on apixaban previously. Her anticoagulation is on hold pending evaluation of anemia. If patient is not deemed to be a candidate for chronic anticoagulation, then would recommend IVC filter placement. (5) Tobacco abuse: Code(s): Z72.0 - Tobacco use Status: Acute Assessment and Plan: Recommend smoking ccessation Subjective Date/time seen: 11/11/22 08:51 Cardiology follow up for CHF Interval history: Not feeling well this morning because she was unable to sleep last night. Still short of breath but improving. No chest pain or palpitations. Exam Const: General: comfortable, no acute distress, alert and awake Nutritional Appearance: overweight Orientation/consciousness: patient oriented x3 HENMT: Head: normal to inspection Eyes: General: appearance normal, both eyes and all related structures Pupils: Equal, round and reactive pupils present Neck: Neck: normal visual inspection, supple and no JVD Carotids: normal carotid upstroke Resp: Effort & Inspection: normal respiratory effort Auscultation: diminished lung sounds Cardio: Rate: regular rate Rhythm: regular rhythm Heart sounds: S1 normal heart sound present, S2 normal heart sound present and no murmurs GI: Auscultation: normal bowel sounds Skin: General skin exam: normal color Neuro: General: patient oriented x3 Cranial nerves: Yes Equal, round and reactive pupils present Extrem: General: normal to inspection Other: No edema Psych: Appearance: grossly normal Mental Status: mental status grossly normal Objective Data Vital Signs Vital Signs: Vital Signs - 24 hr 11/10/22 08:52 11/10/22 10:00 11/10/22 12:00 Temperature 36.9 C Pulse Rate 93 96 84 Respiratory Rate 18 28 H Blood Pressure 67/49 L Pulse Oximetry 93 Oxygen Delivery Oxygen Flow Rate Fraction of Inspired Oxygen 11/10/22 13:52 11/10/22 14:05 11/10/22 12:00 Temperature Pulse Rate 85 82 79 Respiratory Rate 20 20 Blood Pressure Pulse Oximetry Oxygen Delivery Oxygen Flow Rate Fraction of Inspired Oxygen 11/10/22 12:00 11/10/22 16:00 11/10/22 14:00 Temperature 36.7 C Pulse Rate 78 96
[2022-11-11 09:47] LABS: Basophils Percent Auto 0.1 % (0.2-1.2); Hematocrit 34.2 % (37.0-47.0); Hemoglobin 8.8 g/dL (12.0-15.0); Immature Granulocyte Absolute 0.11 K/mm3 (0.00-0.031); Immature Granulocyte Percent A 1.1 % (0-0.5); Lymphocytes Absolute Auto 0.22 K/mm3 (0.9-3.2); Lymphocytes Percent Auto 2.2 % (18.3-44.2); Mean Corpuscular HGB Conc 25.7 g/dl (32-36); Mean Corpuscular Hemoglobin 21.3 pg (26-34); Mean Corpuscular Volume 82.6 fl (80-100); Mean Platelet Volume 9.4 fl (7.4-10.4); Monocytes Absolute Auto 0.5 K/mm3 (0.1-0.6); Monocytes Percent Auto 4.6 % (2.6-8.5); Neutrophils Absolute Auto 9.2 K/mm3 (1.3-6.7); Platelet Count Result 324 k/mm3 (150-375); Red Blood Count 4.14 M/mm3 (4.2-5.4); Red Cell Distribution Width 26.8 % (11.5-14.5)
[2022-11-11 09:58] LABS: Alanine Aminotransferase 22 U/L (6-35); Albumin Level 3.4 g/dL (3.5-5.1); Alkaline Phosphatase 66 U/L (38-126); Anion Gap 2 mmol/L (8-16); Aspartate Amino Transferase 25 U/L (14-36); Bilirubin,Total 0.4 mg/dL (0.2-1.3); Blood Urea Nitrogen 35 mg/dL (7-17); Calcium 8.8 mg/dL (8.4-10.2); Carbon Dioxide 37 mmol/L (22-30); Chloride 102 mmol/L (98-107); Estimated CRCL calculation 52 ml/min; Estimated Glomerular Filt Rate > 60; Glucose 176 mg/dL (65-110); Magnesium 2.6 mg/dL (1.6-2.3); Potassium 4.2 mmol/L (3.4-5.0); Sodium 141 mmol/L (137-145)
[2022-11-11 10:21] LABS: Anisocytosis 1+ (NORMAL); Hypochromasia 1+ (NORMAL); Macrocytosis 1+ (NORMAL); Ovalocytes 1+ (NORMAL); Platelet Estimate Adequate (Adequate); Poikilocytosis 1+ (NORMAL); Schistocytes None Seen (NORMAL)
[2022-11-11] MEDS: PANTOPRAZOLE SODIUM IV 40 MG VIAL IV PUSH ×2 (10:22→20:52)
--- NOTE | 2022-11-11 11:48 | WPDGIPROGNO ---
Progress Note: A&P Assessment and Plan (1) Microcytic anemia: Code(s): D50.9 - Iron deficiency anemia, unspecified Status: Acute Assessment and Plan: With low hemoglobin and low MCV the concern is that she may have chronic gastrointestinal blood loss from malignancy or other pathology. We will Eliquis and when she gets to the floor can begin a bowel prep for colonoscopy. She states that she has never been anemic in the past that she had recall. She denies any prior history of colon disorders or peptic ulcer disease. once 11/09/2022 her hemoglobin is up to 9.1. Ideally we would prepare her for colonoscopy but she is to use sleepy and lethargic to consider prep this time since transfusion, her hemoglobin has been holding around 9. Today it is 8.8. She has had no evidence of bleeding. (2) Acute respiratory failure with hypoxia: Code(s): J96.01 - Acute respiratory failure with hypoxia Status: Acute Assessment and Plan: She has chronic lung disease and recently had COVID. Then she developed a pulmonary embolism last year. Her dyspnea has worsened over the last couple of weeks which is the reason she went to her physician's office yesterday (3) Pulmonary embolism without acute cor pulmonale: Onset Date: 12/2021 Qualifiers: Chronicity: acute Pulmonary embolism type: other Qualified Code(s): I26.99 - Other pulmonary embolism without acute cor pulmonale Code(s): I26.99 - Other pulmonary embolism without acute cor pulmonale Status: Acute Assessment and Plan: Eliquis has been held since admission. Since she is refusing colonoscopy may be appropriate to restart it. I did explain to her that not knowing why her blood counts dropped, and if there is pathology in the colon, that there is a risk of her bleeding or least becoming anemic again. (4) Leukocytosis: Code(s): D72.829 - Elevated white blood cell count, unspecified Status: Acute Assessment and Plan: chest x-ray does show bibasilar airspace disease which may be atelectasis however cannot rule out pneumonia continue with azithromycin and ceftriaxone for now. f/uSputum and blood cultures ordered. (5) Elevated troponin: Code(s): R77.8 - Other specified abnormalities of plasma proteins Status: Acute Assessment and Plan: Possible demand ischemia EKG shows sinus rhythm, no specific data changes the echocardiogram shows normal EF, Follow up EKG, troponin Consult cardiology for evaluation (6) Altered mental status: Code(s): R41.82 - Altered mental status, unspecified Status: Acute Assessment and Plan: when I met her in in the emergency room yesterday she was somewhat drowsy. Today she is much more lethargic. 11/11/2022 today she is alert sitting up in bed and not in a great mood. She states that she is starving and wants to eat. I will order her a regular diet and cancel bowel prep orders Subjective Date/time seen: 11/11/22 11:48 she is awake and alert, sitting at the edge of the bed. She expressed being quite upset about not being able to eat for 3 days. I reminded her that she was very somnolent for over the past couple of days. She states she does not remember any of that. We discussed the fact that we had been waiting for her to become more alert to perform a colonoscopy. She says she will not do that. She knows that she cannot drink the prep. Her discussed with her the importance of having it done to find out why she lost blood. Her answer was that she would have a colonoscopy after he had one! I told her that it is her decision whether not have a colonoscopy. She does not want 1. She wants to eat Exam Const: General: no acute distress and alert Resp: Auscultation: clear to auscultation bilaterally Cardio: Rhythm: regular rhythm GI: Inspection: normal to inspection GI Palp: Yes Soft to palpation and No Tende
--- NOTE | 2022-11-11 12:52 | PM.IMPN ---
Progress Note: A&P Assessment and Plan (1) COPD (chronic obstructive pulmonary disease): Code(s): J44.9 - Chronic obstructive pulmonary disease, unspecified Status: Acute (2) Acute respiratory failure with hypoxia and hypercapnia: Code(s): J96.01 - Acute respiratory failure with hypoxia; J96.02 - Acute respiratory failure with hypercapnia Status: Acute (3) Leukocytosis: Code(s): D72.829 - Elevated white blood cell count, unspecified Status: Acute (4) Symptomatic anemia: Code(s): D64.9 - Anemia, unspecified Status: Acute Plan 72-year-old female smoker with history of pulmonary embolism at the time of an active COVID infection who presented to the emergency department from her doctor's office for evaluation of hypoxia. Over the last couple of weeks she has noticed some swelling her feet addition to progressive shortness of breath.. She was tachycardic in a bit tachypneic on arrival to the ED. Workup was significant for WBC of 13.9, hemoglobin 5.7, hematocrit 24.5% 1)Acute Hypoxic Resp Failure: 2/2 COPD exacerbation Echo with WNL EF More hypoxic today Obtain CXR c/w O2 support c/w bronchodilators, Solumedrol, azithromycin and ceftriaxone Needs BIPAP at night DVT study was negative Appreciate pulmonary help 2)Anemia: Appreciate GI help Patient was hungry, refused bowel prep Eliquis has been held since admission.As per GI ? Since she is refusing colonoscopy may be appropriate to restart it. ? Repeat H/H in AM c/w PPI 3)H/o PE: Will resume eliquis in AM As per cardiology ??If patient is not deemed to be a candidate for chronic anticoagulation, then would recommend IVC filter placement. 4)Elevated troponin: Appreciate Cardilogy help Likely demand ischemia with acute anemia 5)DVT ppx: Will resume eliquis 6)Code:Full 7)Dispo:pending improvement Time Spent With Patient Time with patient: 25 - 35 minutes Subjective Date/time seen: 11/11/22 12:52 Interval history: Hungry, wants to eat food Increased O2 demand, on 6L O2 currently, denies SOB though Review of Systems Review of Systems: All systems reviewed & are unremarkable except as noted in HPI and below Constitutional: Constitutional: Reports lethargy Eyes: Eyes: Reports no additional eye complaints ENT: Reports system reviewed and no additional complaints, except as documented Cardiovascular: Cardiovascular: Reports no additional cardiovascular complaints Respiratory: Comments: hypoxia+ Gastrointestinal: Gastrointestinal: Reports no additional gastrointestinal complaints Musculoskeletal: Musculoskeletal: Reports no additional musculoskeletal complaints Neurologic: Reports system reviewed and no additional complaints, except as documented Psychiatric: Psychiatric: Reports no additional psychiatric complaints Exam Const: General: comfortable HENMT: Mouth: Yes moist mucous membranes Eyes: Sclera: sclerae normal Neck: Neck: supple Resp: Other: decreased breath sounds B/L, occasional wheezing heard Cardio: Rate: regular rate Rhythm: regular rhythm GI: GI Palp: Yes Soft to palpation Auscultation: normal bowel sounds Skin: General skin exam: normal color Neuro: Speech: normal speech Extrem: General: edema Psych: Mental Status: mental status grossly normal Objective Data Vital Signs Vital Signs: Vital Signs - 24 hr 11/10/22 13:52 11/10/22 14:05 11/10/22 16:00 Temperature 98.0 F Pulse Rate 85 82 78 Respiratory Rate 20 20 24 H Blood Pressure 113/76 Pulse Oximetry 97 Oxygen Delivery Oxygen Flow Rate Fraction of Inspired Oxygen 11/10/22 14:00 11/10/22 16:00 11/10/22 16:00 Temperature Pulse Rate 96 78 Respiratory Rate Blood Pressure Pulse Oximetry 97 Oxygen Delivery Nasal Cannula Oxygen Flow Rate 3 Fraction of Inspired Oxygen 11/10/22 18:00 11/10/22 20:00 11/10/22 20:47 Temperature 97.4 F L Pulse Rate 91 90 87
--- NOTE | 2022-11-11 12:55 | PM.PNPUL ---
Progress Note: A&P Assessment and Plan (1) Acute respiratory failure with hypoxia and hypercapnia: Code(s): J96.01 - Acute respiratory failure with hypoxia; J96.02 - Acute respiratory failure with hypercapnia Status: Acute Assessment and Plan: 11/09/2022 She was admitted with worsening shortness of breath, declining mental status, more daytime sleepiness, swelling, elevated pCO2 and low O2. She has not been on O2 in the past. Has not been treated for COPD, has declined requests for testing recommended by Dr. Mayfield, does not use any treatment at home for COPD other than a rescue inhaler prescribed when she was discharged after COVID, just started using this recently. She improved with BiPAP, solumedrol, empiric antibiotics, and will need to go home on PAP therapy. 11/10/2022 She will need to go home on PAP therapy.? She has acute on chronic hypercapnic failure.? Her serum carbon dioxide was elevated December 2021, consistent with hypercapnia.? Depending on the ABGs, she may be a candidate for NPPV at home without having a sleep study. She did not have an arterial blood gas at that time.? She has resisted efforts to manage lung disease and sleep apnea. We will also continue her antibiotics, steroids, maintain adequate blood counts.? I agree with Dr. Manuel, she is not a good candidate for endoscopy until her acute pulmonary issues have been improved. Echo shows normal EF without valve abnormality. She has had swelling, weight gain, shortness of? breath, ? cardiac as part of presentation; Cardiology consult is pending. Some of shortness of breath is due to severe iron deficiency anemia without source of blood loss. 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 she has chronic hypercarbic respiratory failure from her COPD with a blood gas on 12/24/2021 of 7.36/60/55 and on 11/08/2022 with a pH of 7.31/70/74 on 4 L nasal cannula. she would benefit from noninvasive ventilation to prevent further deterioration and further hospitalizations. I have discussed this with the patient and her and at this time the patient declines noninvasive ventilation at night. I will perform an overnight oximetry on 2 L at night to assess her nocturnal oxygen requirements. 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 Patient presented to the emergency room on 11/07/2022 with shortness of breath, productive cough and was treated for COPD exacerbation And community-acquired pneumonia.. 11/11 Patient has no wheezing and states she is breathing back at her baseline. Today is day 3 of Solu-Medrol and I will change her to prednisone 40 mg p.o. q.day. I will continue albuterol 2.5 mg nebs q.6 hours and ipratropium 0.5 mg nebs q.6 hours. Today is day 5 azithromycin and I will discontinue tomorrow, continue ceftriaxone for total of 7 days. I will perform an overnight oximetry on 2 L to assess her oxygen at night. (3) Pulmonary embolism without acute cor pulmonale: Onset Date: 12/2021 Qualifiers: Chronicity: acute Pulmonary embolism type: other Qualified Code(s): I26.99 - Other pulmonary embolism without acute cor pulmonale Code(s): I26.99 - Other pulmonary embolism without acute cor pulmonale Status: Acute Assessment and Plan: Patient had a right upper lobe pulmonary emboli on 12/24/2021 without hemodynamic compromise. Dopplers were not performed at that time. Patient was also diagnosed with COVID pneumonia at that time. This PE was prov
--- NOTE | 2022-11-11 23:43 | PCRCNOTE ---
PT WILL NOT WEAR BIPAP OR APNEA LINK THIS PM , STATES SHE CANNOT STAND THEM, RN HERE AND AWARE, TRYING TO PERSUADE PT X 1HR
[2022-11-12] VITALS (30 sets, daily range): BP systolic 100–136; BP diastolic 45–68; PULSE 81–99; RESP 16–24; TEMP 36.3–36.7; O2SAT 87–97
[2022-11-12] MEDS: IPRATROPIUM BR 0.02% INH SOLN 0.5 MG/2.5 ML VIAL INHALATION ×4 (01:52→21:00)
[2022-11-12] MEDS: ALBUTEROL SULFATE NEB 2.5 MG/3 ML INH 5 MG INHALATION (01:52)
[2022-11-12 04:45] LABS: Eosinophils Percent Auto 0.2 % (0-4.4); Hematocrit 30.3 % (37.0-47.0); Immature Granulocyte Absolute 0.06 K/mm3 (0.00-0.031); Immature Granulocyte Percent A 0.5 % (0-0.5); Lymphocytes Absolute Auto 1.06 K/mm3 (0.9-3.2); Mean Corpuscular HGB Conc 26.4 g/dl (32-36); Mean Corpuscular Hemoglobin 20.8 pg (26-34); Mean Corpuscular Volume 78.7 fl (80-100); Mean Platelet Volume 9.5 fl (7.4-10.4); Monocytes Absolute Auto 1.3 K/mm3 (0.1-0.6); Monocytes Percent Auto 11.3 % (2.6-8.5); Neutrophils Absolute Auto 9.3 K/mm3 (1.3-6.7); Platelet Count Result 300 k/mm3 (150-375); Red Blood Count 3.85 M/mm3 (4.2-5.4); Red Cell Distribution Width 27.2 % (11.5-14.5); White Blood Count 11.8 K/mm3 (4.5-10.0)
[2022-11-12 04:58] LABS: Anion Gap 2 mmol/L (8-16); Blood Urea Nitrogen 35 mg/dL (7-17); Calcium 8.3 mg/dL (8.4-10.2); Carbon Dioxide 35 mmol/L (22-30); Chloride 105 mmol/L (98-107); Estimated CRCL calculation 52 ml/min; Estimated Glomerular Filt Rate > 60; Glucose 119 mg/dL (65-110); Magnesium 2.4 mg/dL (1.6-2.3); Potassium 3.8 mmol/L (3.4-5.0); Sodium 142 mmol/L (137-145)
[2022-11-12 05:04] LABS: Hypochromasia 2+ (NORMAL); Ovalocytes 1+ (NORMAL); Platelet Estimate Adequate (Adequate); Polychromasia 1+ (NORMAL)
[2022-11-12 05:05] LABS: Anisocytosis 1+ (NORMAL); Macrocytosis 1+ (NORMAL); Microcytosis 1+ (NORMAL); NT Pro B Type Natriuretic Pept 3120 pg/mL (5-100)
[2022-11-12 05:06] LABS: Schistocytes None Seen (NORMAL)
[2022-11-12] MEDS: ALBUTEROL SULFATE NEB 2.5 MG/3 ML INH INHALATION ×3 (07:43→21:00)
--- NOTE | 2022-11-12 08:50 | PM.PNPUL ---
Progress Note: A&P Assessment and Plan (1) Acute respiratory failure with hypoxia and hypercapnia: Code(s): J96.01 - Acute respiratory failure with hypoxia; J96.02 - Acute respiratory failure with hypercapnia Status: Acute Assessment and Plan: 11/09/2022 She was admitted with worsening shortness of breath, declining mental status, more daytime sleepiness, swelling, elevated pCO2 and low O2. She has not been on O2 in the past. Has not been treated for COPD, has declined requests for testing recommended by Dr. Mayfield, does not use any treatment at home for COPD other than a rescue inhaler prescribed when she was discharged after COVID, just started using this recently. She improved with BiPAP, solumedrol, empiric antibiotics, and will need to go home on PAP therapy. 11/10/2022 She will need to go home on PAP therapy.? She has acute on chronic hypercapnic failure.? Her serum carbon dioxide was elevated December 2021, consistent with hypercapnia.? Depending on the ABGs, she may be a candidate for NPPV at home without having a sleep study. She did not have an arterial blood gas at that time.? She has resisted efforts to manage lung disease and sleep apnea. We will also continue her antibiotics, steroids, maintain adequate blood counts.? I agree with Dr. Manuel, she is not a good candidate for endoscopy until her acute pulmonary issues have been improved. Echo shows normal EF without valve abnormality. She has had swelling, weight gain, shortness of? breath, ? cardiac as part of presentation; Cardiology consult is pending. Some of shortness of breath is due to severe iron deficiency anemia without source of blood loss. 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 she has chronic hypercarbic respiratory failure from her COPD with a blood gas on 12/24/2021 of 7.36/60/55 and on 11/08/2022 with a pH of 7.31/70/74 on 4 L nasal cannula. she would benefit from noninvasive ventilation to prevent further deterioration and further hospitalizations. I have discussed this with the patient and her and at this time the patient declines noninvasive ventilation at night. I will perform an overnight oximetry on 2 L at night to assess her nocturnal oxygen requirements. 11/12 Currently she is on 3 L nasal cannula saturations 96%. Patient refused overnight oximetry last night. Patient said she will consider wearing oxygen during the day if she needs it and I will order a home O2 assessment. From a pulmonary perspective patient is at her baseline and can undergo EGD and/or colonoscopy if needed with the understanding that she does have COPD with hypercarbic respiratory failure and needs to be monitored closely during and after the procedure. 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 Patient presented to the emergency room on 11/07/2022 with shortness of breath, productive cough and was treated for COPD exacerbation And community-acquired pneumonia.. 11/11 Patient has no wheezing and states she is breathing back at her baseline. Today is day 3 of Solu-Medrol and I will change her to prednisone 40 mg p.o. q.day. I will continue albuterol 2.5 mg nebs q.6 hours and ipratropium 0.5 mg nebs q.6 hours. Today is day 5 azithromycin and I will discontinue tomorrow, continue ceftriaxone for total of 7 days. I will perform an overnight oximetry on 2 L to assess her oxygen at night. 11/12 patient states she is breathing back to her normal. She has minimal cough, no phlegm and no
[2022-11-12] MEDS: PANTOPRAZOLE SODIUM IV 40 MG VIAL IV PUSH (09:30)
[2022-11-12] MEDS: predniSONE 20 MG TABLET 40 MG PO (09:30)
[2022-11-12 09:47] LABS: Haptoglobin 243 mg/dL (43-212)
--- NOTE | 2022-11-12 10:07 | PCPTNOTE ---
Attempted PT evaluation, pt refused stating I'm relaxing right now. Despite encouragement pt refused. RN aware. Will follow
--- NOTE | 2022-11-12 13:28 | PCPTNOTE ---
Attempted PT evaluation, pt refused again stating she is too tired. RN aware. Will follow.
--- NOTE | 2022-11-12 14:39 | PM.IMPN ---
Progress Note: A&P Assessment and Plan (1) COPD (chronic obstructive pulmonary disease): Code(s): J44.9 - Chronic obstructive pulmonary disease, unspecified Status: Acute (2) Acute respiratory failure with hypoxia and hypercapnia: Code(s): J96.01 - Acute respiratory failure with hypoxia; J96.02 - Acute respiratory failure with hypercapnia Status: Acute (3) Leukocytosis: Code(s): D72.829 - Elevated white blood cell count, unspecified Status: Acute (4) Symptomatic anemia: Code(s): D64.9 - Anemia, unspecified Status: Acute Plan 1)Acute Hypoxic Resp Failure: 2/2 COPD exacerbation Echo with WNL EF c/w O2 support c/w bronchodilators, Solumedrol, azithromycin and ceftriaxone Needs BIPAP at night Pt does not want BIPAP order walk study today Hopeful dc in 1-2 days time PT/ OT 2)Anemia: Appreciate GI help Eliquis has been held since admission. Can restart on Dc pt benefits from EGD and colonoscopy on DC.? 3)H/o PE: resume eliquis on Dc As per cardiology ??If patient is not deemed to be a candidate for chronic anticoagulation, then would recommend IVC filter placement. 4)Elevated troponin: Appreciate Cardiology help not ischemic related Subjective Date/time seen: 11/12/22 14:39 72-year-old female smoker with history of pulmonary embolism at the time of an active COVID infection who presented to the emergency department from her doctor's office for evaluation after she was found to have low oxygen levels. Over the last couple of weeks she has noticed some swelling her feet addition to progressive shortness of breath on lesser and lesser exertion. She has also a bit a cough though it has been nonproductive.? Pulmonology feels she is ready to go states she is too weak PT/ OT ordered and ambulatory walk study Review of Systems Review of Systems: Ongoing SOB no cough or fever or wheeze All systems reviewed & are unremarkable except as noted in HPI and below Exam Const: General: comfortable Other: Comfortable on 3 liters of oxygen Resp: Other: clear lung bernal Cardio: Rate: regular rate Rhythm: regular rhythm Other: Regular rate rhythm with normal S1-S2. GI: Auscultation: normal bowel sounds Other: Abdomen is soft, nontender, and nondistended with positive bowel sounds. Skin: General skin exam: normal color Other: Warm, dry, and pale. Neuro: Speech: normal speech Other: Confused, not oriented x3, deep tendon reflexes present. Extrem: General: edema Other: No cyanosis or clubbing. 1+ pedal edema bilaterally up to mid auguste. No palpable knots or cords. Psych: Mental Status: mental status grossly normal Other: Pleasant and cooperative with appropriate mood and affect. Objective Data Vital Signs Vital Signs: Vital Signs - 24 hr 11/11/22 16:00 11/11/22 16:00 11/11/22 16:00 Temperature 36.1 C L Pulse Rate 98 96 Respiratory Rate 24 H Blood Pressure 119/89 Pulse Oximetry 93 96 Oxygen Delivery Nasal Cannula Oxygen Flow Rate 5 11/11/22 18:00 11/11/22 20:00 11/11/22 20:45 Temperature 36.2 C L Pulse Rate 98 90 88 Respiratory Rate 20 20 Blood Pressure 136/55 L Pulse Oximetry 94 Oxygen Delivery Oxygen Flow Rate 11/11/22 20:59 11/11/22 20:59 11/11/22 23:37 Temperature 36.4 C Pulse Rate 92 101 H Respiratory Rate 20 20 Blood Pressure 131/57 L Pulse Oximetry 97 98 Oxygen Delivery Nasal Cannula Oxygen Flow Rate 4 11/12/22 01:52 11/12/22 02:03 11/11/22 20:00 Temperature Pulse Rate 85 81 Respiratory Rate 20 20 Blood Pressure Pulse Oximetry 94 Oxygen Delivery Nasal Cannula Oxygen Flow Rate 2 11/11/22 20:00 11/11/22 22:00 11/12/22 00:00 Temperature Pulse Rate 97 105 H 98 Respiratory Rate Blood Pressure Pulse Oximetry Oxygen Delivery Oxygen Flow Rate 11/12/22 02:00 11/12/22 00:00 11/12/22 04:00 Temperature Pulse Rate
--- NOTE | 2022-11-12 14:43 | HOMEO2EVAL ---
Evaluation was performed at [facility] O[facility] Evaluation RC: Home Oxygen (O2) Evaluation Start: 11/12/22 08:32 Freq: ONCE Status: Active Protocol: RPE Activity Type Activity Date Activity User E-sign Co-sign Detail Recorded Client Recorded Date Recorded By Document 11/12/22 14:00 [email or web address] [email or web address] 11/12/22 14:43 YANG Document 11/12/22 14:03 [email or web address] [email or web address] 11/12/22 14:43 YANG Document 11/12/22 14:04 YANG [email or web address] 11/12/22 14:43 YANG Document 11/12/22 14:07 [email or web address] [email or web address] 11/12/22 14:43 YANG Document 11/12/22 14:08 YANG [email or web address] 11/12/22 14:43 YANG Document 11/12/22 14:15 YANG [email or web address] 11/12/22 14:43 YANG 11/12/22 11/12/22 11/12/22 14:00 14:03 14:04 Home O2 Evaluation [Oxygen] -Test Phase Resting Resting Resting -Oxygen Delivery Room Air Nasal Cannula Nasal Cannula -Oxygen Flow Rate (L/min) 1 2 [Pulse Oximetry] -Pulse Oximetry (90-100 %) 87 L 87 L 91 [Pulse Rate] -Pulse Rate (60-100 beats/min) 91 85 [Comments] -Home Oxygen Evaluation Comments [Charges] -Treatment Charges O2 Evaluation - Inpatient 11/12/22 11/12/22 11/12/22 14:07 14:08 14:15 Home O2 Evaluation [Oxygen] -Test Phase Exercise Exercise Resting -Oxygen Delivery Nasal Cannula Nasal Cannula Nasal Cannula -Oxygen Flow Rate (L/min) 2 3 2 [Pulse Oximetry] -Pulse Oximetry (90-100 %) 87 L 92 91 [Pulse Rate] -Pulse Rate (60-100 beats/min) 93 94 92 [Comments] -Home Oxygen Evaluation Comments Pt requires 2 l at rest and 3 l with activity [Charges] -Treatment Charges
--- NOTE | 2022-11-12 14:44 | PCRCNOTE ---
Home O2 eval done, pt needs 2 L resting and 3 L with exertion, set up with [facility] [place] [facility]. Tank in room for transport home
[2022-11-12] MEDS: PANTOPRAZOLE 40 MG TABLET PO (16:12)
[2022-11-13 02:00] VITALS: PULSE 112
[2022-11-13 04:00] VITALS: BP 153/63; PULSE 87; PULSE 93; RESP 18; TEMP 36.2; O2SAT 98
[2022-11-13 06:00] VITALS: PULSE 92
--- NOTE | 2022-11-13 07:59 | PM.IMPN ---
Progress Note: A&P Assessment and Plan (1) COPD (chronic obstructive pulmonary disease): Code(s): J44.9 - Chronic obstructive pulmonary disease, unspecified Status: Acute Assessment and Plan: From a pulmonary perspective patient is ready to be discharged on these pulmonary medications: Levofloxacin 750 mg p.o. q.day to complete a 7 day course of antibiotics (last day of antibiotics 11/14/22). Prednisone 40 mg p.o. q.day (last dose on 11/13/22) to complete 5 day course Anoro Ellipta 62.5-25 at 1 puff q.day Rescue albuterol 2 puffs q.4 hours p.r.n. shortness of breath or wheezing.? Oxygen per formal home O2 assessment which I have ordered. Patient has refused an overnight oximetry and this should be performed as outpatient to determine her oxygen requirements at night. Patient should follow up with her primary care physician in 3-4 weeks. (2) Acute respiratory failure with hypoxia and hypercapnia: Code(s): J96.01 - Acute respiratory failure with hypoxia; J96.02 - Acute respiratory failure with hypercapnia Status: Acute Assessment and Plan: Home O2 assessment: Rest room air saturation 87%.? Rest nasal cannula 1 L saturation 87%.? Rest nasal cannula 2 L saturation 91%.? Exercise nasal cannula 2 L saturation 87%.? Exercise nasal cannula 3 L saturation 92%.? Patient requires 2 L at rest and 3 with ambulation. (3) Symptomatic anemia: Code(s): D64.9 - Anemia, unspecified Status: Acute Assessment and Plan: d/c eliquis permanently at this point Plan DVT prophylaxis with SCDs GI prophylaxis with PPI Code status full code Subjective Date/time seen: 11/13/22 07:59 Interval history: No overnight events noted. No chest pain or shortness of breath. No nausea, vomiting or diarrhea. No fevers or chills. Review of Systems Review of Systems: 12 point review of systems was assessed and was negative except as noted in the HPI Exam Narrative: General: No acute distress, alert and oriented per baseline HEENT: Atraumatic, normocephalic, mucous membranes moist CV: Regular rate and rhythm, S1, S2 Lungs: Clear to auscultation bilaterally, no rales or crackles noted, no wheezes, good air entry Abdomen: Soft, nontender, nondistended Extremities: Normal to inspection Skin: No rashes noted, no lesions or wounds seen Psych: Euthymic, normal affect Objective Data Vital Signs Vital Signs: Vital Signs - 24 hr 11/12/22 08:00 11/12/22 08:32 11/12/22 08:00 Temperature 97.4 F L Pulse Rate 90 99 Respiratory Rate 18 Blood Pressure 136/47 L Pulse Oximetry 92 Oxygen Delivery Nasal Cannula Oxygen Flow Rate 3 Fraction of Inspired Oxygen 11/12/22 08:00 11/12/22 12:00 11/12/22 14:25 Temperature 97.4 F L Pulse Rate 95 84 Respiratory Rate 24 H 18 Blood Pressure 135/51 L Pulse Oximetry 92 96 Oxygen Delivery Nasal Cannula Oxygen Flow Rate 3 Fraction of Inspired Oxygen 11/12/22 14:27 11/12/22 14:34 11/12/22 14:00 Temperature Pulse Rate 87 87 91 Respiratory Rate 18 18 Blood Pressure Pulse Oximetry 93 87 L Oxygen Delivery Nasal Cannula Room Air Oxygen Flow Rate 2 Fraction of Inspired Oxygen 11/12/22 14:03 11/12/22 14:04 11/12/22 14:07 Temperature Pulse Rate 85 93 Respiratory Rate Blood Pressure Pulse Oximetry 87 L 91 87 L Oxygen Delivery Nasal Cannula Nasal Cannula Nasal Cannula Oxygen Flow Rate 1 2 2 Fraction of Inspired Oxygen 11/12/22 14:08 11/12/22 14:15 11/12/22 16:00 Temperature 97.9 F Pulse Rate 94 92 86 Respiratory Rate 16 Blood Pressure 125/45 L Pulse Oximetry 92 91 94 Oxygen Delivery Nasal Cannula Nasal Cannula Oxygen Flow Rate 3 2 Fraction of Inspired Oxygen 11/12/22 10:00 11/12/22 12:00 11/12/22 12:00 Temperature Pulse Rate 83 86 Respiratory Rate Blood Pressure Pulse Oximetry 94 Oxygen Delivery Nasal Cannula Oxygen Flow Rate 2 Fraction of Inspired Oxygen
[2022-11-13 08:00] VITALS: BP 97/53; PULSE 107; PULSE 96; RESP 16; TEMP 36.2; O2SAT 95; O2SAT 98
[2022-11-13 08:56] VITALS: O2SAT 95
--- NOTE | 2022-11-13 09:05 | PM.DS ---
DS: Admitting Diagnosis Discharge Date 11/13/2022 Admitting Diagnosis Hypoxia, shortness of breath DS: Discharge Diagnosis Discharge Diagnosis (1) COPD (chronic obstructive pulmonary disease): Code(s): J44.9 - Chronic obstructive pulmonary disease, unspecified Status: Acute Assessment and Plan: From a pulmonary perspective patient is ready to be discharged on these pulmonary medications: Levofloxacin 750 mg p.o. q.day to complete a 7 day course of antibiotics (last day of antibiotics 11/14/22). Prednisone 40 mg p.o. q.day (last dose on 11/13/22) to complete 5 day course Anoro Ellipta 62.5-25 at 1 puff q.day Rescue albuterol 2 puffs q.4 hours p.r.n. shortness of breath or wheezing.? Oxygen per formal home O2 assessment which I have ordered. Patient has refused an overnight oximetry and this should be performed as outpatient to determine her oxygen requirements at night. Patient should follow up with her primary care physician in 3-4 weeks. (2) Acute respiratory failure with hypoxia and hypercapnia: Code(s): J96.01 - Acute respiratory failure with hypoxia; J96.02 - Acute respiratory failure with hypercapnia Status: Acute Assessment and Plan: Home O2 assessment: Rest room air saturation 87%.? Rest nasal cannula 1 L saturation 87%.? Rest nasal cannula 2 L saturation 91%.? Exercise nasal cannula 2 L saturation 87%.? Exercise nasal cannula 3 L saturation 92%.? Patient requires 2 L at rest and 3 with ambulation. (3) Symptomatic anemia: Code(s): D64.9 - Anemia, unspecified Status: Acute Assessment and Plan: d/c eliquis permanently at this point Plan DVT prophylaxis with SCDs GI prophylaxis with PPI Code status full code DS: Summary Hospital Course Hospital Course: 72-year-old female smoker with history of pulmonary embolism at the time of an active COVID infection who presented to the emergency department from her doctor's office for evaluation after she was found to have low oxygen levels. She was also noted to have anemia. GI was consulted. No intervention able to be performed secondary to patient's initial lethargy and hypoxia. Hemoglobin remains stable, no workup necessary at this time. GI does recommend colonoscopy, which patient refused. Echo from November 08, 2022 showed an EF of 60-65% with normal diastolic function. No significant valvular dysfunction, no pulmonary hypertension noted. Remote history of PE while she had COVID, Eliquis will be discontinued at this time after 10 months of treatment. Pulmonology was consulted for hypoxic respiratory failure as well as COPD exacerbation and possible pneumonia. See treatment details above as well as home O2 eval results. Patient was discharged in stable condition with close outpatient follow-up. Please see med rec and above for details. Repeat CBC in 3 days to confirm stability of hemoglobin. Time Spent with Patient Time attestation: Total time spent providing and/or coordinating discharge services: Exam Narrative: General: No acute distress, alert and oriented per baseline HEENT: Atraumatic, normocephalic, mucous membranes moist CV: Regular rate and rhythm, S1, S2 Lungs: Clear to auscultation bilaterally, no rales or crackles noted, no wheezes, good air entry Abdomen: Soft, nontender, nondistended Extremities: Normal to inspection Skin: No rashes noted, no lesions or wounds seen Psych: Euthymic, normal affect DS: Data Data Completed and Pending Labs on day of discharge: Labs from last 24 hours 11/07/22 16:56 Haptoglobin 243 H Preliminary micro results at discharge 11/08/22 01:24 Blood Culture - Preliminary Blood Discharge Plan Discharge Attending physician on discharge: Yi Steele Consulting providers: Bright Manuel ; Elif Acosta ; Jovon Grover Discharging Clinician: Yi Steele Patient Disposition: Home Health Service Activity: as julieta
[2022-11-13] MEDS: predniSONE 20 MG TABLET 40 MG PO (09:20)
[2022-11-13 09:49] LABS: Basophils Percent Auto 0.1 % (0.2-1.2); Eosinophils Absolute Auto 0.1 K/mm3 (0-0.3); Eosinophils Percent Auto 0.5 % (0-4.4); Hematocrit 35.5 % (37.0-47.0); Hemoglobin 9.2 g/dL (12.0-15.0); Immature Granulocyte Absolute 0.05 K/mm3 (0.00-0.031); Immature Granulocyte Percent A 0.4 % (0-0.5); Lymphocytes Absolute Auto 0.86 K/mm3 (0.9-3.2); Lymphocytes Percent Auto 7.7 % (18.3-44.2); Mean Corpuscular HGB Conc 25.9 g/dl (32-36); Mean Corpuscular Hemoglobin 20.6 pg (26-34); Mean Corpuscular Volume 79.6 fl (80-100); Mean Platelet Volume 9.4 fl (7.4-10.4); Monocytes Absolute Auto 1.2 K/mm3 (0.1-0.6); Monocytes Percent Auto 10.6 % (2.6-8.5); Neutrophils Percent Auto 80.7 % (45.5-73.1); Platelet Count Result 336 k/mm3 (150-375); Red Blood Count 4.46 M/mm3 (4.2-5.4); Red Cell Distribution Width 27.1 % (11.5-14.5); White Blood Count 11.2 K/mm3 (4.5-10.0)
[2022-11-13 10:00] VITALS: PULSE 94
[2022-11-13 10:10] LABS: Anisocytosis 3+ (NORMAL); Hypochromasia 2+ (NORMAL); Ovalocytes 1+ (NORMAL); Platelet Estimate Adequate (Adequate); Stomatocytes 1+ (NORMAL)
[2022-11-13 10:11] LABS: Schistocytes None Seen (NORMAL)
== END 2022-11-13 13:30 | disposition home health service (06) | DRG 189 ==
LOC: ANHED 18:28 → ANHIMU 20:52
PROVIDERS: Emergency Medicine; Internal Medicine; Internal Medicine Critical Care Medicine; Physician Assistant; Admitting Provider Hospitalist; Emergency Provider Emergency Medicine; PCP Internal Medicine; Visit Provider Student in an Organized Health Care Education/Training Program
DX: J96.01 Acute respiratory failure with hypoxia (principal); J18.9 Pneumonia, unspecified organism; I21.A1 Myocardial infarction type 2; J44.1 Chronic obstructive pulmonary disease with (acute) exacerbation; J44.0 Chronic obstructive pulmonary disease with (acute) lower respiratory infection; K92.2 Gastrointestinal hemorrhage, unspecified; D62 Acute posthemorrhagic anemia; I50.30 Unspecified diastolic (congestive) heart failure; I11.0 Hypertensive heart disease with heart failure; J96.02 Acute respiratory failure with hypercapnia; Z20.822 Contact with and (suspected) exposure to COVID-19; D50.9 Iron deficiency anemia, unspecified; D72.829 Elevated white blood cell count, unspecified; F17.210 Nicotine dependence, cigarettes, uncomplicated; R00.0 Tachycardia, unspecified; Z53.29 Procedure and treatment not carried out because of patient's decision for other reasons; Z86.711 Personal history of pulmonary embolism; Z86.16 Personal history of COVID-19; Z79.01 Long term (current) use of anticoagulants
CPT/HCPCS: 36415; 36430; 36600; 70450; 71046; 80048; 80053; 81003; 82805; 83010; 83540; 83550; 83605; 83615; 83735; 83880; 84484; 85014; 85018; 85025; 85027; 86140; 86850; 86900; 86901; 86923; 87040; 87636; 93005; 93306; 93970; 94002; 94618; 94640; 96365; 96367; 96372; 96375; 96376; 97161; 97165; 99291; A9270; C9113; G0378; J0456; J0696; J1120; J1650; J1940; J2060; J2920; J7050; J7512; P9016

== ENCOUNTER 2022-11-21 11:36 | Outpatient (CLI) | payer OTHER, SELFPAY ==
[2022-11-21 12:13] LABS: Basophils Absolute Auto 0.1 K/mm3 (0.0-0.1); Basophils Percent Auto 0.9 % (0.2-1.2); Eosinophils Absolute Auto 0.3 K/mm3 (0-0.3); Eosinophils Percent Auto 3.3 % (0-4.4); Hematocrit 34.1 % (37.0-47.0); Hemoglobin 9.1 g/dL (12.0-15.0); Immature Granulocyte Absolute 0.05 K/mm3 (0.00-0.031); Immature Granulocyte Percent A 0.6 % (0-0.5); Lymphocytes Absolute Auto 0.93 K/mm3 (0.9-3.2); Lymphocytes Percent Auto 10.3 % (18.3-44.2); Mean Corpuscular HGB Conc 26.7 g/dl (32-36); Mean Corpuscular Hemoglobin 21.5 pg (26-34); Mean Corpuscular Volume 80.6 fl (80-100); Mean Platelet Volume 9.3 fl (7.4-10.4); Monocytes Absolute Auto 1.1 K/mm3 (0.1-0.6); Monocytes Percent Auto 12.5 % (2.6-8.5); Neutrophils Absolute Auto 6.6 K/mm3 (1.3-6.7); Neutrophils Percent Auto 72.4 % (45.5-73.1); Platelet Count Result 383 k/mm3 (150-375); Red Blood Count 4.23 M/mm3 (4.2-5.4); Red Cell Distribution Width 27.6 % (11.5-14.5); White Blood Count 9.1 K/mm3 (4.5-10.0)
[2022-11-21 12:39] LABS: Anisocytosis 3+ (NORMAL); Hypochromasia 2+ (NORMAL); Platelet Estimate Adequate (Adequate); Schistocytes None Seen (NORMAL)
== END 2022-11-21 11:37 | disposition home or self-care (01) ==
PROVIDERS: PCP Internal Medicine; Visit Provider Student in an Organized Health Care Education/Training Program
DX: D50.9 Iron deficiency anemia, unspecified (principal)
CPT/HCPCS: 36415; 85025

== ENCOUNTER 2023-04-01 12:36 | Outpatient (CLI) | payer OTHER, SELFPAY ==
--- NOTE | 2023-04-02 08:41 | WPDPFTINT ---
PFT Procedure Performed PFT Procedure Performed Spirometry with Pre/Post Bronchodilator Plethysmography (Lung Vol) Diffusing Cap (DLCO) Flow Vol Loop PFT Interpretation Lung volumes were measured with the body plethysmography method. The elevated FRC and RV are indicative of air trapping. The elevated TLC could be due to lung hyperinflation. Spirometry showed diminished expiratory flow rates and a diminished FEV1 to FVC ratio of 63%, consistent with obstructive airway disease. Following administration of a bronchodilator there was no significant increase in expiratory flow rates. Lung diffusion capacity is moderately reduced at 47% predicted. The flow-volume loop is consistent with obstructive airway disease. Impression: Moderate obstructive airway disease with evidence of air trapping and possibly lung hyperinflation and no response to bronchodilators on this testing. Moderately reduced lung diffusion capacity.
--- NOTE | 2023-04-02 08:44 | WPDSIXMINUTE ---
Six Minute Walk Procedure Procedure Performed Pulmonary Stress Test (6 min walk) Six Minute Walk Six Minute Walk: This 6 minute walk test was carried out with the patient breathing room air. The baseline pre-walk oxyhemoglobin saturation was 94%. The patient walked 259 m with no stops during testing. During the walk the oxyhemoglobin saturation remained 92% or higher. Impression: No evidence of oxyhemoglobin desaturation on this testing.
== END 2023-04-01 12:37 | disposition home or self-care (01) ==
LOC: ANHPFT 12:37
PROVIDERS: PCP Internal Medicine; Visit Provider Internal Medicine
DX: J43.9 Emphysema, unspecified (principal)
CPT/HCPCS: 94060; 94618; 94726; 94729

== ENCOUNTER 2025-02-07 11:30 | Outpatient (CLI) | payer OTHER, SELFPAY ==
--- OUTSIDE RECORDS SUMMARY | 2025-02-07 13:28 | XMS_ITS | Clinical Summary ---
Author Organization [facility] Address [address] [place] [address] Care Team Providers Care Division Chief Name Role Phone Shaan Mayfield MD Primary Care Provider [phone] Allergies No known active allergies Medications Albuterol Sulfate 108 (90 Base) MCG/ACT AEROSOL POWDER, BREATH ACTIVATED Inhale 2 puffs into the lungs every 6 (six) hours as needed. Active OXYGEN 2L qhs Active sodium chloride (OCEAN) 0.65 % Solution 1 spray by Each Nostril route every 4 (four) hours as needed for Dryness. Active Multiple Vitamin (MULTIVITAMIN ADULT OR) Take 1 tablet by mouth daily. Active COMPRESSION STOCKINGS, DME,Indications:E tenisha, unspecified type Apply 1 Package topically daily. 2 Package 3 Active ANORO ELLIPTA 62.5-25 MCG/ACT inhalerIndication s:Centrilobular emphysema (CMS/HCC HHS/HCC) INHALE 1 PUFF BY MOUTH DAILY FOR 1 MONTH Strength: 62.5-25 MCG/ACT 60 each 3 3 Active buPROPion XL (WELLBUTRIN XL) 150 MG 24 hr tabletIndications :Tobacco use TAKE 1 TABLET BY MOUTH EVERY DAY 90 tablet 1 3 Active furosemide (LASIX) 40 MG tabletIndications :Primary hypertension TAKE 1/2 TABLET BY MOUTH EVERY DAY 45 tablet 1 4 Active Active Problems Problem Noted Date Diagnosed Date Aortic calcification 04/22/2023 Overview (04/22/2023): Noted by me on CXR dated 11/07/2022 Chronic fatigue 02/06/2023 Edema leg 02/06/2023 Chronic respiratory failure with hypoxia and hypercapnia ([facility]) 11/26/2022 COPD (chronic obstructive pu lmonary disease) ([facility]) 11/26/2022 Diastolic CHF ([facility]) 11/26/2022 Intracranial atherosclerosis 11/26/2022 Iron deficiency anemia, unspecified 05/16/2022 Pulmonary embolism without a cute cor pulmonale ([facility]) 02/13/2022 Essential hypertension 12/10/2016 Resolved Problems Problem Noted Date Diagnosed Date Resolved Date Elevated troponin 02/06/2023 04/22/2023 Tobacco use 02/06/2023 04/22/2023 Care Management 12/10/2022 10/15/2023 Microcytic anemia 01/21/2022 04/22/2023 Tobacco dependence 01/13/2019 Immunizations Name Administration Dates Next Due Pneumococcal (Pneumovax 23) 01/13/2019 Pneumococcal (Prevnar 13) 12/10/2016 Tdap (Boostrix) 10/14/2018 Family History Medical History Relation Comments Cancer Father Alzheimers Maternal Aunt Diabetes Maternal Aunt Stroke Maternal Aunt Diabetes Maternal Grandmother Heart Disease Maternal Grandmother Hypertension Maternal Grandmother Heart Disease Mother Stroke Paternal Grandfather COPD Sister Coronary artery disease Sister Heart Disease Sister Cancer Son brain, throat, l liz Relation Status Comments Brother Alive Father (Age 70) Maternal Aunt Maternal Grandfather (Age 85) Maternal Grandmother (Age 65) Mother (Age 44) Paternal Grandfather Paternal Grandmother Sister (Age 72) Son Social History Tobacco Use Types Packs/Day Years Used Date Smoking Tobacco: Former Cigarettes 0.5 70 0 11/07/1952 - 11/07/2022 Smokeless Tobacco: Never Tobacco Cessation:Counseling Given: Not Answered Alcohol Use Standard Drinks/Week Comments Yes 0 (1 standard drink = 0.6 oz pure alcohol) 1 glass of wine a few times a year AUDIT-C Answer Date Recorded Frequency of Alcohol Consumption 2-4 times a fri01/13/2019 Average Number of Drinks 1 or 2 019 Frequency of Binge Drinking Not on file 01/01 Overall Financial Resource Strain (CARDIA) Answe r Date Recorded How hard is it for you to pa y for the very basics like food, housing, medical care, and heating? Not very hard 12/31/2022 PHQ-2 Answer Date Recorded Patient Health Questionnaire-2 Score 1 12/30/2022 Hunger Vital Sign Answer Date Recorded Within the past 12 months, y ou worried that your food would run out before you got the money to buy more. Never true 12/31/19 23 Within the past 12 months, t he food you bought just didn't last and you didn't have money to get more. Never true 12/31/2022 PRAPARE - Transportation Answer Date Re corded In the past 12 months, has l ack of transportation kept you from medical appointments or from getting medications? No 12/05 In the past 12 months, has l ack of transportation kept you from meetings, work, or from getting things needed for daily living? No 12/31/2022 Housing Stability Vital Sign Answer Deonte e Recorded In the last 12 months, was t here a time when you were not able to pay the mortgage or rent on time? No 12/31/2022 In the last 12 months, how many places have you lived? 1 12/31/2022 In the last 12 months, was t here a time when you did not have a steady place to sleep or slept in a senior living (including now)? No 12/31/2022 Comments No Sex and Gender Information Value Date Recorded Sex Assigned at Female 01/13/2019 11:56 AM CDT Legal Sex Female 9:23 PM CDT Gender Identity Female 01/13/2019 11:56 AM CDT Sexual Orientation Straight 01/13/2019 11 :56 AM CDT Last Filed Vital Signs Vital Sign Reading Time Taken Comments Blood Pressure 136/88 04/22/2023 11:52 AM CDT Pulse 110 04/22/2023 11:52 AM CDT Temperature 36.2 C (97.2 F) 04/22/2023 11:52 AM CDT Respiratory Rate 18 04/22/2023 11:52 AM CDT Oxygen Saturation 96% 04/22/2023 11:52 AM CDT Inhaled Oxygen Concentration - - Weight 68.5 kg (151 lb) 04/22/2023 11:52 AM CDT Height 152.4 cm (5') 04/22/2023 11:52 AM CDT Body Mass Index 29.49 04/22/2023 11:52 AM CDT Plan of Treatment Health Maintenance Due Date Last Done Comments ASCVD Statin 1948 Hepatitis C 1966 Zoster Vaccines (1 of 2) 1998 Annual Medicare Wellness Visit 2013 Dexa Scan (General) 2013 ASCVD LDL 05/15/2023 05/15/2022, 01/12/2018 RSV Immunization or 60+ Years (1 - 1-dose 75+ series) 2023 COVID-19 Vaccine (1 - 2023-2 5 season) 2024 PHQ-2 (Physician [place]) 11/03/2024 DTaP, Tdap and Td Vaccines ( 2 - Td or Tdap) 10/14/2028 10/14/2018 Pneumococcal Vaccine: 65+ Years Completed 01/13/2019, 12/10/2016 Meningococcal B Vaccine Aged Out No l onger eligible based on patient's age to complete this topic Meningococcal Vaccine Aged Out No gina cynthia eligible based on patient's age to complete this topic RSV Immunizations Under 20 Months Aged Out No longer eligible b ased on patient's age to complete this topic Goals Goal Patient Goal Type Associated Problems Recent Progress Patient-Stated? Author Establish Plan for Symptom Monitoring for COPD aeb the below: Lifestyle On track(2022 1:47 PM CDT) Lucy Millard RN Note: .Interventions for COPD include: 1) patient will be knowledgeable and notify provider if experiencing following symptoms: worsening SOB, freq cough(nonproductive or productive), wheezing, fatigue, tightness in chest 2) patient will take all medications consistently as prescribed 3) patient will follow up with provider routinely/as scheduled 12/10/22: see note/status section moving forward for progress/documentation towards goal completion Establish Plan for Symptom Monitoring for CHF aeb the below: Lifestyle On track(2022 1:47 PM CDT) Lucy Millard RN Note: .Interventions for CHF include: 1) patient will be knowledge in symptoms of CHF to report to physician including: increase in cough/productive cough, sob, lower ext swelling, abd distention, nausea, and reportable weight gain(3lb/24h or 5lb/wk) 2) patient will take all medications consistently as prescribed 3) patient will follow low na diet 4) patient will follow up with physician as scheduled 12/10/22 see note/status section moving forward for documentation/progress towards goal completion Procedures Procedure Name Priority Date/Time Associated Diagnosis Comments LIPID PANEL Routine 05/15/2022 10:44 AM CDT Primary hypertension from Last 3 Months or Most Recently Relevant to Health Maintenance Results * (ABNORMAL) LIPID PANEL (05/15/2022 10:44 AM CDT) CHOLESTEROL 171 <200 MG/DL 05/15/2022 3:40 PM CDT [facility] TRIGLYCERIDES 117 <150 MG/DL 05/15/2022 3:40 PM CDT [facility] HDL 47 >40 MG/DL 05/15/2022 3:40 PM CDT [facility] LDL-C 101(H) <100 MG/DL 05/15/2022 3:40 PM CDT [facility] VLDL CALCULATION 23 5 - 28 MG/DL 05/15/2022 3:40 PM CDT [facility] CHOL/HDL RATIO 3.6 0.0 - 4.0 05/15/2022 3:40 PM CDT [facility] LDL/HDL 2.1 0.41 - 2.13 05/15/2022 3:40 PM CDT [facility] NON HDL CHOLESTEROL 124 <140 MG/DL 05/15/2022 3:[address] [facility] [place] 05/15/2022 10:4 4 AM CDT us Shaan Mayfield MD LABORATORY Final Result [facility] [place] [address] [place] [address], [place] [phone] from Last 3 Months or Most Recently Relevant to Health Maintenance Insurance [employer] Care Teams Division Chief Relationship Specialty Start Date End Date Shaan Mayfield MD [address] [place] [address] [phone] PCP - General INTERNAL MEDICINE 01/13/19
[2025-02-07 20:11] LABS: Basophils Absolute Auto 0.1 K/mm3 (0.0-0.1); Basophils Percent Auto 0.6 % (0.2-1.2); Eosinophils Absolute Auto 0.1 K/mm3 (0-0.3); Eosinophils Percent Auto 0.4 % (0-4.4); Hemoglobin 9.6 g/dL (12.0-15.0); Immature Granulocyte Absolute 0.09 K/mm3 (0.00-0.031); Immature Granulocyte Percent A 0.5 % (0-0.5); Lymphocytes Absolute Auto 1.49 K/mm3 (0.9-3.2); Mean Corpuscular HGB Conc 26.7 g/dl (32-36); Mean Corpuscular Hemoglobin 23.1 pg (26-34); Mean Corpuscular Volume 86.7 fl (80-100); Mean Platelet Volume 10.4 fl (7.4-10.4); Monocytes Absolute Auto 1.1 K/mm3 (0.1-0.6); Monocytes Percent Auto 6.6 % (2.6-8.5); Neutrophils Absolute Auto 13.7 K/mm3 (1.3-6.7); Neutrophils Percent Auto 82.9 % (45.5-73.1); Platelet Count Result 561 k/mm3 (150-375); Red Blood Count 4.15 M/mm3 (4.2-5.4); Red Cell Distribution Width 16.3 % (11.5-14.5); White Blood Count 16.5 K/mm3 (4.5-10.0)
[2025-02-07 20:12] LABS: Alanine Aminotransferase 31 U/L (6-35); Albumin Level 4.2 g/dL (3.5-5.1); Alkaline Phosphatase 140 U/L (38-126); Anion Gap 9 mmol/L (4-12); Aspartate Amino Transferase 52 U/L (14-36); Bilirubin,Total 0.4 mg/dL (0.2-1.3); Blood Urea Nitrogen 19 mg/dL (7-17); Calcium 9.1 mg/dL (8.4-10.2); Carbon Dioxide 29 mmol/L (22-30); Chloride 101 mmol/L (98-107); Cholesterol 195 mg/dL (0-200); Estimated Glomerular Filt Rate > 60; Glucose 148 mg/dL (65-110); HDL Direct 38 mg/dL; Magnesium 2.2 mg/dL (1.6-2.3); Potassium 4.8 mmol/L (3.4-5.0); Sodium 139 mmol/L (137-145); Triglycerides 232 mg/dL (<150)
[2025-02-07 20:33] LABS: LDL Cholesterol Direct 124 mg/dL
[2025-02-07 20:35] LABS: Platelet Estimate Increased (Adequate)
[2025-02-07 20:37] LABS: Anisocytosis 2+; Band Neutrophils Percent 0 % (0-6); Schistocytes None Seen
== END 2025-02-07 11:31 | disposition home or self-care (01) ==
LOC: ANHBWCLAB 11:32
PROVIDERS: PCP Nurse Practitioner Adult Health; Visit Provider Nurse Practitioner Adult Health
DX: I10 Essential (primary) hypertension (principal)
CPT/HCPCS: 36415; 80053; 80061; 83735; 85025

== ENCOUNTER 2025-02-08 11:55 | Outpatient (CLI) | payer OTHER, SELFPAY ==
--- NOTE | ~2025-02-08 | XR_ITS ---
EXAM/PROCEDURE: XR chest 2V - 02/08/2025 12:02 CDT HISTORY: 74 years old Female with R06.00 - Dyspnea, unspecified TECHNIQUE: Two view(s) of the chest. COMPARISON: 11/11/2024 FINDINGS: LUNGS/ PLEURA: Interval improvement of previously seen bibasilar airspace opacities. No appreciable p neumothorax or large pleural effusion. Bibasilar linear atelectasis and/or scarring. HEART/ MEDIASTINUM: Heart appears normal in size. Atherosclerotic calcifications are seen. BONES: Degenerative changes. OTHER: Visualized upper abdomen is unremarkable. IMPRESSION: No acute process. Bibasilar linear atelectasis and/or scarring. Reviewed, dictated and finalized at location A.
--- OUTSIDE RECORDS SUMMARY | 2025-02-08 13:19 | XMS_ITS | Clinical Summary ---
Author Organization [facility] Address [address] [place] [address] Care Team Providers Care Mergers [employer] Acquisitions Attorney Name Role Phone Shaan Mayfield MD Primary Care Provider [phone] Allergies No known active allergies Medications Albuterol [...] Chronic respiratory failure with hypoxia and hypercapnia ([facility]) 11/26/2022 COPD (chronic obstructive pu lmonary disease) ([facility]) 11/26/2022 Diastolic CHF ([facility]) 11/26/2022 Intracranial atherosclerosis 11/26/2022 Iron deficiency anemia, unspecified 05/16/2022 Pulmonary embolism without a cute cor pulmonale ([facility]) 02/13/2022 Essential hypertension 12/10/2016 Resolved Problems Problem [...] to sleep or slept in a senior care (including now)? No 12/31/2022 Comments No Sex [...] - 2023-2 5 season) 2024 PHQ-2 (Physician [place]) 11/03/2024 DTaP, Tdap and Td Vaccines ( [...] 171 <200 MG/DL 05/15/2022 3:[address] [facility] TRIGLYCERIDES 117 <150 MG/DL 05/15/2022 3:[address] PM [address] [facility] HDL 47 >40 MG/DL 05/15/2022 3:40 PM CD[address] [facility] LDL-C 101(H) <100 MG/DL 05/15/2022 3:40 PM CD[address] [facility] VLDL CALCULATION 23 5 - 28 MG/DL 05/15/2022 3:40 PM CD[address] [facility] CHOL/HDL RATIO 3.6 0.0 - 4.0 05/15/2022 3:[address] PM [address] [facility] LDL/HDL 2.1 0.41 - 2.13 05/15/2022 3:40 PM CD[address] [facility] NON HDL CHOLESTEROL 124 <140 MG/DL 05/15/2022 3:40 PM CDT [facility] [place] 05/15/2022 10:4 4 AM CDT us Shaan Mayfield MD LABORATORY Final Result [facility] [place] [address] [place] [address], [place] [phone] from Last 3 Months or Most Recently Relevant to Health Maintenance Insurance [employer] Care Teams Mergers And Acquisitions Attorney Relationship Specialty Start Date End Date Shaan Mayfield MD [address] [place] [address] [phone] PCP - General INTERNAL MEDICINE 01/13/19
[2025-02-08 20:45] LABS: Iron 31 ug/dL (37-170)
[2025-02-08 20:57] LABS: Percent Iron Saturation 7 % (20-50)
[2025-02-08 21:23] LABS: Ferritin 6.23 ng/mL (11.1-264)
== END 2025-02-08 11:56 | disposition home or self-care (01) ==
PROVIDERS: PCP Nurse Practitioner Adult Health; Visit Provider Nurse Practitioner Adult Health
DX: J98.11 Atelectasis (principal); J98.4 Other disorders of lung; D64.9 Anemia, unspecified
CPT/HCPCS: 36415; 71046; 82728; 83540; 83550

== ENCOUNTER 2025-02-22 14:47 | Inpatient (IN) | payer OTHER, SELFPAY ==
[2025-02-22] VITALS (13 sets, daily range): BP systolic 92–142; BP diastolic 65–82; PULSE 104–138; RESP 17–27; TEMP 36.3–39.1; O2SAT 86–100; BMI 30.1
--- NOTE | ~2025-02-22 | XR_ITS ---
CHEST RADIOGRAPH CLINICAL HISTORY: hypoxia . COMPARISON: 02/18/2025 TECHNIQUE: Single portable view of the chest. FINDINGS The cardiomediastinal silhouette is unremarkable. Increased interstitial markings are identified bilaterally, findings suggesting mild pulmonary vascul ar congestion. The remainder of the lungs are clear. IMPRESSION: Mild pulmonary vascular congestion, without focal infiltrate or effusion. Reviewed, dictated and finalized at location A.
--- NOTE | ~2025-02-22 | CT_ITS ---
CTA chest PE protocol Ordering provider: Eyal Paris MD History: 74 years Female with . A few(wharE, PE history . Comparison: December 24, 2021 Technique: CT angiogram chest was performed following timed intravenous injection of contrast. Thin s lice axial images and reformatted coronal images were obtained. Three dimensional reformatted images of the chest were also obtained using a [employer] workstation. . Automated exposure control and iterati ve reconstruction technique were employed. The dose-length product was 430.96 mGy-cm. 100 mL Omnipaqu e 350 was given IV. Findings: PULMONARY ARTERIES: No pulmonary embolus. VISUALIZED THORACIC INLET: Normal. MEDIASTINUM: Aorta/coronary arteries: Mild atheromatous disease. Heart/other: The heart is not enlarged. Trace of pericardial effusion Lymph nodes: Mediastinal lymphadenopathy is seen with the largest measures 1.5 cm in the paratracheal area. LUNGS: No pulmonary nodules or masses. No infiltrates or effusions. No pneumothorax. Opacity seen in the rig ht oblique fissure area which is highly suggestive of atelectasis. VISUALIZED UPPER ABDOMEN: Fat infiltration of the liver. Otherwise, the visualized upper abdomen is n ormal. MUSCULOSKELETAL: Soft tissues: The superficial soft tissues are normal. Bones: Age appropriate degenerative changes of the spine. Sclerotic changes seen in T12 and L1 with h ighly suggestive hemangioma. Other differential is not excluded. Clinical correlation and follow-up i s advised. IMPRESSION: 1. No pulmonary embolism. 2. No acute cardiopulmonary pathology. 3. Mediastinal lymphadenopathy. Clinical evaluation advised. 4. Atelectatic area in the middle lobe adjacent to the oblique fissure. 5. Fat infiltration of the liver. 6. Sclerotic changes in T12 and L1 unchanged from previous examination Reviewed, dictated and finalized at location A.
--- NOTE | ~2025-02-22 | CT_ITS ---
CLINICAL INDICATION: Sepsis, unknown source COMPARISON: None. TECHNIQUE: Multiple contiguous axial images of the abdomen and pelvis were performed following the ad ministration of with 100 mL Omnipaque-350 intravenous contrast The dose-length product (DLP) was 599.15 mGy-cm. Automated exposure control and iterative reconstruction technique were employed. FINDINGS/OBSERVATIONS: Visualized lower thorax: Bronchiectasis within the right middle lobe. Trace right basilar atelectasis. The remainder of the bilateral lower lobes are clear. The heart is of normal size, without pericardial effusion. Small hiatal hernia is present. Liver: The liver demonstrates diffusely decreased homogeneous enhancement and is not enlarged. Gallbladder and biliary system: The gallbladder is only minimally distended, and otherwise unremarkable. Pancreas: The pancreas enhances homogeneously without ductal dilatation. Spleen: The spleen enhances homogeneously and is not enlarged. Kidneys: The bilateral kidneys enhance symmetrically without hydronephrosis or renal calculi. Appropriate excr etion from prior contrast enhanced studies is detected. Adrenal glands: Unremarkable. Gastrointestinal tract: Colonic diverticulosis without surrounding inflammatory change. Appendix: The air-filled appendix is of normal caliber (axial series, images 111 through 123). Vasculature: Calcified atherosclerotic disease. Lymph nodes: No pathologically enlarged or morphologically suspicious lymph nodes within the retroperitoneum or at the root of the mesentery. Pelvic structures: The bladder is distended, and otherwise unremarkable. The uterus is anteverted and anteflexed, and somewhat atrophic. Body wall and musculoskeletal: Fat-containing umbilical hernia is present. Dense sclerosis is identified within the vertebral bodies of T12 and L1, unchanged dating back to 12/05. Degenerative disease is identified at the levels of L4/L5 with osteophyte formation, disc spa ce narrowing, endplate changes and vacuum phenomena. Grade 1 anterior listhesis of L4 onto L5 is present. IMPRESSION: No acute findings within the abdomen or pelvis to account for patient's presentation, as detailed abo ve. Reviewed, dictated and finalized at location A. IMPRESSION: No acute findings within the abdomen or pelvis to account for patient's present ation, as detailed above.
--- NOTE | ~2025-02-22 | XR_ITS ---
Portable chest x-ray Comparison: 02/22/2025 Clinical History: Shortness of breath Findings: There is minimal haziness right lung base. Left lung clear. Cardiomediastinal silhouette is stable. Bones and soft tissues are unremarkable. Impression: Minimal haziness right lung base. Correlate for atelectasis versus pneumonia. Reviewed, dictated and finalized at [facility]. Impression: Minimal haziness right lung base. Correlate for atelectasis versus pneumonia.
--- NOTE | 2025-02-22 14:52 | ECG_ITS ---
Test Date: 2025-02-22 14:56:40 Measurements Intervals [place] Rate: 134 P: 77 SD: 159 QRS: 67 QRSD: 120 T: 59 QT: 328 QTc: 491 Interpretive Statements SINUS TACHYCARDIA WITH OCCASIONAL SUPRAVENTRICULAR PREMATURE COMPLEXES RIGHT BUNDLE BRANCH BLOCK MINIMAL Q WAVES- ANT/INF LEADS BASELINE ARTIFACT- I, II, III, AVR, AVL, AVF, V1-V2, V4-V6 ABNORMAL ECG No previous ECG available for comparison Electronically Signed On 02-22-2025 15:53:29 CDT by Quinton España D.O.
[2025-02-22] MEDS: SODIUM CHLORIDE 0.9% IV 100 ML 999 ML IV CONT (15:03)
[2025-02-22 15:16] LABS: Basophils Absolute Auto 0.1 K/mm3 (0.0-0.1); Basophils Percent Auto 0.4 % (0.2-1.2); Eosinophils Percent Auto 0.1 % (0-4.4); Hematocrit 40.2 % (37.0-47.0); Hemoglobin 11.5 g/dL (12.0-15.0); Immature Granulocyte Absolute 0.06 K/mm3 (0.00-0.031); Immature Granulocyte Percent A 0.4 % (0-0.5); Lymphocytes Absolute Auto 0.51 K/mm3 (0.9-3.2); Lymphocytes Percent Auto 3.1 % (18.3-44.2); Mean Corpuscular HGB Conc 28.6 g/dl (32-36); Mean Corpuscular Hemoglobin 25.5 pg (26-34); Mean Corpuscular Volume 89.1 fl (80-100); Mean Platelet Volume 9.8 fl (7.4-10.4); Monocytes Absolute Auto 0.9 K/mm3 (0.1-0.6); Monocytes Percent Auto 5.4 % (2.6-8.5); Neutrophils Absolute Auto 15.1 K/mm3 (1.3-6.7); Neutrophils Percent Auto 90.6 % (45.5-73.1); Platelet Count Result 306 k/mm3 (150-375); Red Blood Count 4.51 M/mm3 (4.2-5.4); Red Cell Distribution Width 24.5 % (11.5-14.5); White Blood Count 16.7 K/mm3 (4.5-10.0)
--- NOTE | 2025-02-22 15:25 | ED.SOB ---
HPI - SOB/Dyspnea General Chief Complaint: Shortness of Breath/Dyspnea Stated Complaint: SOB, hyposic Time Seen by Provider: 02/22/25 14:57 History of Present Illness HPI Narrative: 74-year-old female with a past medical history including COPD, diastolic congestive heart failure, hypertension. Patient presents to the emergency room with chief complaint of shortness of breath, increased heart rate hypoxia. Patient lives at home with her family who have been having recent symptoms of strep throat. Patient notes that she had a mild sore throat as well before her symptoms began. Patient was noted to be hypoxic in the 70% on EMS arrival requiring nasal cannula. She is hypoxic here at 86% on room air requiring 2 L nasal cannula 92%. Patient is a heart rate in the 130s with regular rate, febrile at 39.1. Patient denies any chest pain or chest pressure. Endorses dyspnea and has remote history of a PE that was provoked. She completed a course of anticoagulation. Denies any worsening leg swelling or unilateral leg swelling. No vomiting, headache, vision changes. No chills. No urinary complaints or abdominal pain. Related Data Home Medications ?Medication ?Instructions ?Recorded ?Confirmed ?Last Taken ?Type aspirin 81 mg tablet,delayed 81 mg PO DAILY 02/07/25 02/22/25 02/21/25 History release biotin 10,000 mcg capsule 10,000 mcg PO DAILY 02/07/25 02/22/25 02/21/25 History multivitamin (Multiple Vitamins 1 tablet PO DAILY 02/07/25 02/22/25 02/21/25 History tablet) ferrous sulfate 325 mg (65 mg 325 mg PO DAILY 02/22/25 02/22/25 02/21/25 History iron) tablet Allergies Allergy/AdvReac Type Severity Reaction Status Date / Time latex Allergy Unknown Rash Verified 02/22/25 21:07 apixaban (From Eliquis) AdvReac Unknown Bleeding Verified 02/22/25 21:07 Review of Systems Review of Systems: As reviewed above in HPI [facility] Past Medical History Medical History Tobacco dependence Hypertension Tobacco dependence Pneumonia due to COVID-19 virus (12/2021) Pulmonary embolism without acute cor pulmonale (12/2021) Surgical History Surgical History History of tubal ligation History of eye surgery Family History Family History (Updated 02/22/25 @ 20:55 by Domenica Melo RN) Father Family history of malignant neoplasm Patient's father is Sibling Family history of heart disease in male family member before age 55 Diabetes mellitus Family history of malignant neoplasm Heart disease Mother Family history of heart disease in male family member before age 55 Heart disease Patient's mother is Sibling Heart disease Cancer Hypertension Grandparent Diabetes mellitus Son Cancer Social History Social History Social History: Surrogate medical decision maker: Taye Mcgill, spouse. Code status: Full code. Smoking packs per day: 1 Smoking cigarettes per day: 20.0 Years smoked: 61 Smoking pack-years: 61.00 Smoking status: Former smoker Tobacco type: cigarettes Second hand tobacco smoke exposure: No Alcohol intake: current Drinks per week: 1 Alcohol use details: 1-4 a week Substance use: former Substance use type: marijuana Do You Feel Safe in your Home?: Yes Lack of Transportation: YES Lack of Food: Never True Current Housing: I Have Housing Concerned About Future Housing: No Difficulty Paying Gas/Electric Bills: No Difficulty Paying for Meds: No Currently Unemployed: No Education: Associate Degree Difficulty w/ Childcare or Family Care: No Living arrangements: with family Occupation/Education: retired Spiritual care concerns: No Agree to blood products: Yes Exam Narrative: GENERAL: Conversationally dyspneic but not any extremis. Answering questions appropriately. HEAD: [Normocephalic, atraumatic.] EYES: [PERRLA and EOMI.] ENT: Nares clear, no rhinorrhea or epistaxis. Mucous membranes moist. NECK: Supple. CHEST: Coarse bibasilar breath sounds, no wheezing, mild tachypnea noted. No accessory muscle use. Conversationally dyspneic. HEART: Tachycardic rate, regular rhythm. No murmur heard. [Normal peripheral pulses.] ABDOMEN: Protuberant but soft and nondistended, [nontender], [No rigidity or guarding] EXTREMITIES: Normal range of motion. [No edema.] SKIN: Warm, dry, no rash. NEURO: [No focal deficits]. Alert and oriented [x3.] PSYCH: [Normal mood and affect.] Course Vital Signs Vital signs: Vital Signs Temperature 39.1 C H 02/22/25 14:42 Pulse Rate 138 H 02/22/25 14:42 Respiratory Rate 22 H 02/22/25 14:42 Blood Pressure 109/78 02/22/25 14:42 Pulse Oximetry 86 L 02/22/25 14:42 Oxygen Delivery Room Air 02/22/25 14:42 Temperature 36.8 C 02/22/25 20:15 Pulse Rate 114 H 02/22/25 20:15 Respiratory Rate 18 02/22/25 20:15 Blood Pressure 142/69 H 02/22/25 20:15 Pulse Oximetry 98 02/22/25 20:15 Oxygen Delivery Nasal Cannula 02/22/25 15:36 Oxygen Flow Rate 2 02/22/25 15:36 Procedures Other Procedure Procedure 1: Other Procedure: Procedure: Bedside echocardiogram Indication: Dyspnea, hypoxia, tachycardia Narrative: Multiple views of the cardiac chambers were obtained including parasternal long axis, parasternal short axis, apical 4 chamber and subxiphoid view with IVC view. Patient has a hyperdynamic ejection fraction, enlarged atria, prominent anterior fat pad but no circumferential fluid collection suspicious for any pericardial effusion. IVC is flattened collapsible with respiratory variation MDM - SOB/Dyspnea MDM Narrative Medical decision making narrative: 74-year-old female with a past medical history including COPD, hypertension, diastolic CHF anemia. Patient presents to the emergency depart with difficulty in breathing, dyspnea, increased heart rate and hypoxia. Patient's family members have been sick with strep throat at home. Patient herself is found to be 70% on room air when EMS arrived. Improved with nasal cannula. She is hypoxic urine 86 on room air requiring 2 L nasal can to maintain 92% saturation. She is tachycardic in the 130s with regular rate and rhythm confirmed an EKG to be sinus tachycardia. Tachypneic at 22 with conversational dyspnea. Febrile at 39.1? C. She is not any acute distress but is somewhat dyspneic. Suspicion presently is for bacterial pneumonia causing hypoxic respiratory failure, strep throat, sepsis, low suspicion cardiac involvement such as ACS or thrombolic event such as PE but she does have a history of this that was provoked previously. Not any blood thinners. Bedside echo confirms hyperdynamic ejection fraction with collapsed IVC low suspicion for CHF causing this. Septic workup was ordered, she is given 30 cc/kg bolus of fluids given her reassuring ejection fraction. 2 L of normal saline given, antibiotics started empirically with vancomycin cefepime, blood cultures were obtained, CBC, CMP, lactic acid, inflammatory markers obtained. COVID swabs, strep swabs obtained. CTA of the chest was obtained given her symptoms and history of PE. Patient placed on cardiac monitor technician and was frequently re-evaluated for response after treatments. Patient's workup shows a leukocytosis of 16.7, hemoglobin 11.1 which is better than her baseline. Normal platelet count. Normal coagulation panel. ABG shows normal pH, pCO2 46 which is better than her previous levels. O2 is normal but on oxygen 4 L at this time. Chemistry panel within normal limits, normal renal and hepatic function panel. Negative lactic acid. Glucose mildly elevated. Mildly elevated BNP but not significant, negative troponin. Negative procalcitonin. Normal urinalysis. Strep swab panel negative, viral panel negative. Expanded respiratory panel ordered. CTA of the chest shows no PE or acute cardiopulmonary disease. There is some mediastinal lymphadenopathy, fatty liver and no other acute concern. Patient was re-evaluated had improvement in the vitals, no longer is tachypneic and her fever did break but she is still requiring oxygen actually desaturated while trying to ambulate to the restroom. He is on 3 L at this time. Blood pressure improved to 142/69, heart rate came down to the 110s. Given that we do not have a source for her elevated white count, fever or vital signs suspicious for sepsis we did expand workup to include a CT of the abdomen and pelvis at this time. This was reviewed and shows no acute findings in the abdomen or pelvis to account for the symptoms. I discussed the case with the hospitalist given her vital now malaise need for oxygen that we do not have a clear diagnosis at this time but she needs further evaluation and treatment on inpatient basis. Patient was accepted to an IMU bed at this time. Family members were made aware of the plan and comfortable with admission. Patient remained stable at this time on oxygen support. Medical Records Attestation: I reviewed the patient's medical records. Lab Data Attestation: I reviewed the patient's lab results. 02/22/25 15:05 02/22/25 15:05 Labs: Lab Results 02/22/25 02/22/25 02/22/25 Range/Units 15:04 15:05 15:05 WBC 16.7 H (4.5-10.0) K/mm3 RBC 4.51 (4.2-5.4) M/mm3 Hgb 11.5 L (12.0-15.0) g/dL Hct 40.2 (37.0-47.0) % MCV 89.1 (80-100) fl MCH 25.5 L (26-34) pg MCHC 28.6 L (32-36) g/dl RDW 24.5 H (11.5-14.5) % Plt Count 306 (150-375) k/mm3 MPV 9.8 (7.4-10.4) fl Immature Gran % (Auto) 0.4 (0-0.5) % Neut % (Auto) 90.6 H (45.5-73.1) % Lymph % (Auto) 3.1 L (18.3-44.2) % Wilkes % (Auto) 5.4 (2.6-8.5) % Eos % (Auto) 0.1 (0-4.4) % Baso % (Auto) 0.4 (0.2-1.2) % Lymph # (Auto) 0.51 L (0.9-3.2) K/mm3 Wilkes # (Auto) 0.9 H (0.1-0.6) K/mm3 Eos # (Auto) 0.0 (0-0.3) K/mm3 Baso # (Auto) 0.1 (0.0-0.1) K/mm3 Abs Immat Gran (auto) 0.06 H (0.00-0.031) K/mm3 Absolute Neuts (auto) 15.1 H (1.3-6.7) K/mm3 Absolute Nucleated RBC 0.000 (0.0-0.012) K/mm3 Band Neutrophils % Not Reportable Nucleated RBC % 0.0 (0.0-0.2) % Platelet Estimate Adequate (Adequate) Hypochromasia 1+ Anisocytosis 1+ Ovalocytes 1+ Schistocytes None seen PT 13.8 (11.1-14.7) Seconds INR 1.0 APTT 30.4 (22.3-36.8) Seconds Methemoglobin (0-1.5) %THb Sodium 137 (137-145) mmol/L Potassium 4.7 (3.4-5.0) mmol/L Chloride 101 (98-107) mmol/L Carbon Dioxide 24 (22-30) mmol/L Anion Gap 12 (4-12) mmol/L BUN 14 D (7-17) mg/dL Creatinine 0.50 L (0.7-1.0) mg/dL Estim Creat Clear Calc 70 ml/min Estimated GFR > 60 (59 - ) Glucose 167 H (65-110) mg/dL Lactic Acid 1.6 (0.7-2.0) mmol/L Calcium 8.6 (8.4-10.2) mg/dL Total Bilirubin 0.7 (0.2-1.3) mg/dL AST 57 H (14-36) U/L ALT 43 H (6-35) U/L Alkaline Phosphatase 107 (38-126) U/L Troponin I 0.017 Cancelled (0.000-0.034) ng/mL C-Reactive Protein 3.0 H (<1.0) mg/dL NT-Pro-B Natriuret Pep (19.9-100) pg/mL Total Protein (6.3-8.2) g/dL Albumin (3.5-5.1) g/dL Procalcitonin ng/mL Urine Color (Yellow) Urine Appearance (Clear) Urine pH (5.0-9.0) Ur Specific [place] (1.001-1.035) Urine Protein (Negative) mg/dL Urine Glucose (UA) (Negative) mg/dL Urine Ketones (Negative) mg/dL Ur Blood (Man) (Negative) Urine Nitrate (Negative) Urine Bilirubin (Negative) Urine Urobilinogen (<2.0) mg/dL Leukocyte Esterase Rfl (Negative) GIGI/UL Urine RBC (0-2) /hpf Urine WBC (0-3) /hpf Ur Squamous Epith Cells (Few) /hpf Urine Bacteria /hpf Urine Casts Influenza A (RT-PCR) Negative (Negative) Influenza B (RT-PCR) Negative (Negative) RSV (RT-PCR) Negative (Negative) SARS-CoV-2 RNA (RT-PCR) Negative (Negative) Group A Strep (PCR) Not detected (Negative) 04/22/25 04/22/25 04/22/25 Range/Units 15:05 15:05 15:27 WBC (4.5-10.0) K/mm3 RBC (4.2-5.4) M/mm3 Hgb (12.0-15.0) g/dL Hct (37.0-47.0) % MCV (80-100) fl MCH (26-34) pg MCHC (32-36) g/dl RDW (11.5-14.5) % Plt Count (150-375) k/mm3 MPV (7.4-10.4) fl Immature Gran % (Auto) (0-0.5) % Neut % (Auto) (45.5-73.1) % Lymph % (Auto) (18.3-44.2) % Wilkes % (Auto) (2.6-8.5) % Eos % (Auto) (0-4.4) % Baso % (Auto) (0.2-1.2) % Lymph # (Auto) (0.9-3.2) K/mm3 Wilkes # (Auto) (0.1-0.6) K/mm3 Eos # (Auto) (0-0.3) K/mm3 Baso # (Auto) (0.0-0.1) K/mm3 Abs Immat Gran (auto) (0.00-0.031) K/mm3 Absolute Neuts (auto) (1.3-6.7) K/mm3 Absolute Nucleated RBC (0.0-0.012) K/mm3 Band Neutrophils % Nucleated RBC % (0.0-0.2) % Platelet Estimate (Adequate) Hypochromasia Anisocytosis Ovalocytes Schistocytes PT (11.1-14.7) Seconds INR APTT (22.3-36.8) Seconds Methemoglobin (0-1.5) %THb Sodium (137-145) mmol/L Potassium (3.4-5.0) mmol/L Chloride (98-107) mmol/L Carbon Dioxide (22-30) mmol/L Anion Gap (4-12) mmol/L BUN (7-17) mg/dL Creatinine (0.7-1.0) mg/dL Estim Creat Clear Calc ml/min Estimated GFR (59 - ) Glucose (65-110) mg/dL Lactic Acid (0.7-2.0) mmol/L Calcium (8.4-10.2) mg/dL Total Bilirubin (0.2-1.3) mg/dL AST (14-36) U/L ALT (6-35) U/L Alkaline Phosphatase (38-126) U/L Troponin I (0.000-0.034) ng/mL C-Reactive Protein Cancelled (<1.0) mg/dL NT-Pro-B Natriuret Pep 589 H Cancelled (19.9-100) pg/mL Total Protein 7.0 (6.3-8.2) g/dL Albumin 4.1 (3.5-5.1) g/dL Procalcitonin 0.3 ng/mL Urine Color Yellow (Yellow) Urine Appearance Clear (Clear) Urine pH 7.0 (5.0-9.0) Ur Specific [place] 1.020 (1.001-1.035) Urine Protein 2+ H (Negative) mg/dL Urine Glucose (UA) Negative (Negative) mg/dL Urine Ketones Negative (Negative) mg/dL Ur Blood (Man) Negative (Negative) Urine Nitrate Negative (Negative) Urine Bilirubin Negative (Negative) Urine Urobilinogen 0.2 (<2.0) mg/dL Leukocyte Esterase Rfl Negative (Negative) GIGI/UL Urine RBC 0-2 (0-2) /hpf Urine WBC 0-5 (0-3) /hpf Ur Squamous Epith Cells Occasional (Few) /hpf Urine Bacteria None seen /hpf Urine Casts 0-2 Influenza A (RT-PCR) (Negative) Influenza B (RT-PCR) (Negative) RSV (RT-PCR) (Negative) SARS-CoV-2 RNA (RT-PCR) (Negative) Group A Strep (PCR) (Negative) 02/22/25 Range/Units 16:42 WBC (4.5-10.0) K/mm3 RBC (4.2-5.4) M/mm3 Hgb (12.0-15.0) g/dL Hct (37.0-47.0) % MCV (80-100) fl MCH (26-34) pg MCHC (32-36) g/dl RDW (11.5-14.5) % Plt Count (150-375) k/mm3 MPV (7.4-10.4) fl Immature Gran % (Auto) (0-0.5) % Neut % (Auto) (45.5-73.1) % Lymph % (Auto) (18.3-44.2) % Wilkes % (Auto) (2.6-8.5) % Eos % (Auto) (0-4.4) % Baso % (Auto) (0.2-1.2) % Lymph # (Auto) (0.9-3.2) K/mm3 Wilkes # (Auto) (0.1-0.6) K/mm3 Eos # (Auto) (0-0.3) K/mm3 Baso # (Auto) (0.0-0.1) K/mm3 Abs Immat Gran (auto) (0.00-0.031) K/mm3 Absolute Neuts (auto) (1.3-6.7) K/mm3 Absolute Nucleated RBC (0.0-0.012) K/mm3 Band Neutrophils % Nucleated RBC % (0.0-0.2) % Platelet Estimate (Adequate) Hypochromasia Anisocytosis Ovalocytes Schistocytes PT (11.1-14.7) Seconds INR APTT (22.3-36.8) Seconds Methemoglobin 0.4 (0-1.5) %THb Sodium (137-145) mmol/L Potassium (3.4-5.0) mmol/L Chloride (98-107) mmol/L Carbon Dioxide (22-30) mmol/L Anion Gap (4-12) mmol/L BUN (7-17) mg/dL Creatinine (0.7-1.0) mg/dL Estim Creat Clear Calc ml/min Estimated GFR (59 - ) Glucose (65-110) mg/dL Lactic Acid (0.7-2.0) mmol/L Calcium (8.4-10.2) mg/dL Total Bilirubin (0.2-1.3) mg/dL AST (14-36) U/L ALT (6-35) U/L Alkaline Phosphatase (38-126) U/L Troponin I (0.000-0.034) ng/mL C-Reactive Protein (<1.0) mg/dL NT-Pro-B Natriuret Pep (19.9-100) pg/mL Total Protein (6.3-8.2) g/dL Albumin (3.5-5.1) g/dL Procalcitonin ng/mL Urine Color (Yellow) Urine Appearance (Clear) Urine pH (5.0-9.0) Ur Specific [place] (1.001-1.035) Urine Protein (Negative) mg/dL Urine Glucose (UA) (Negative) mg/dL Urine Ketones (Negative) mg/dL Ur Blood (Man) (Negative) Urine Nitrate (Negative) Urine Bilirubin (Negative) Urine Urobilinogen (<2.0) mg/dL Leukocyte Esterase Rfl (Negative) GIGI/UL Urine RBC (0-2) /hpf Urine WBC (0-3) /hpf Ur Squamous Epith Cells (Few) /hpf Urine Bacteria /hpf Urine Casts Influenza A (RT-PCR) (Negative) Influenza B (RT-PCR) (Negative) RSV (RT-PCR) (Negative) SARS-CoV-2 RNA (RT-PCR) (Negative) Group A Strep (PCR) (Negative) ABG Data ABG results: 02/22/25 16:42 Puncture Site Right radial ABG pH 7.359 ABG pCO2 46.9 H ABG pO2 83.2 ABG PO2/FiO2 Ratio 2.31 ABG HCO3 25.8 ABG O2 Saturation 95.8 ABG O2 Content 14.7 L ABG Base Excess 0.1 A-a Gradient 119.1 Oxyhemoglobin 94.4 Carboxyhemoglobin 1.1 Reduced Hemoglobin 4.1 Total Hemoglobin 11.0 L O2 Delivery Device Nasal cannula O2 Liters/Min 4.0 FiO2 36 Attestation: I personally reviewed and interpreted this ABG as follows: Interpretation: Chronic hypercapnia, normal pH Imaging Data Attestation: I personally reviewed and interpreted this imaging study as follows: My impression: Impressions Chest CTA 02/22/25 15:57 IMPRESSION: 1. No pulmonary embolism. 2. No acute cardiopulmonary pathology. 3. Mediastinal lymphadenopathy. Clinical evaluation advised. 4. Atelectatic area in the middle lobe adjacent to the oblique fissure. 5. Fat infiltration of the liver. 6. Sclerotic changes in T12 and L1 unchanged from previous examination Chest X-Ray 02/22/25 16:12 IMPRESSION: Mild pulmonary vascular congestion, without focal infiltrate or effusion. Abdomen/Pelvis CT 02/22/25 18:23 IMPRESSION: No acute findings within the abdomen or pelvis to account for patient's presentation, as detailed above. Critical Care Time Critical Care Time Critical Care Time: Yes Total Critical Care Time: 75 Discharge Plan Discharge Clinical Impression: Acute respiratory failure with hypoxemia, Elevated WBC count, Tachycardia, Sepsis, Fever Patient Disposition: Still a Patient Condition: Stable Time of Disposition: 19:40
[2025-02-22 15:26] LABS: Platelet Estimate Adequate (Adequate)
[2025-02-22 15:27] LABS: Anisocytosis 1+; Hypochromasia 1+; Ovalocytes 1+; Schistocytes None Seen
[2025-02-22 15:29] LABS: Lactic Acid Reflex 1.6 mmol/L (0.7-2.0); Partial Thromboplastin Time 30.4 Seconds (22.3-36.8); Prothrombin Time 13.8 Seconds (11.1-14.7)
[2025-02-22 15:33] LABS: Alanine Aminotransferase 43 U/L (6-35); Albumin Level 4.1 g/dL (3.5-5.1); Alkaline Phosphatase 107 U/L (38-126); Anion Gap 12 mmol/L (4-12); Aspartate Amino Transferase 57 U/L (14-36); Bilirubin,Total 0.7 mg/dL (0.2-1.3); Blood Urea Nitrogen 14 mg/dL (7-17); Calcium 8.6 mg/dL (8.4-10.2); Carbon Dioxide 24 mmol/L (22-30); Chloride 101 mmol/L (98-107); Estimated CRCL calculation 70 ml/min; Estimated Glomerular Filt Rate > 60; Glucose 167 mg/dL (65-110); Potassium 4.7 mmol/L (3.4-5.0); Sodium 137 mmol/L (137-145)
[2025-02-22 15:37] LABS: Strep Group A RT-PCR NOT DETECTED (Negative)
[2025-02-22] MEDS: ACETAMINOPHEN 500 MG TABLET 1000 MG PO (15:38)
[2025-02-22 15:39] LABS: Add Urine Microscopic? YES; Appearance Urine Clear (Clear); Bacteria Urine None Seen /hpf; Bilirubin Urine Negative (Negative); Blood Urine Negative (Negative); Color Urine Yellow (Yellow); Glucose Urine UA Negative (Negative); Ketones Urine Negative (Negative); Leukocyte Esterase Ur Negative LEU/UL (Negative); Nitrate Urine Negative (Negative); Non Pathogenic Casts 0-2; Protein Urine 2+ mg/dL (Negative); RBC Urine 0-2 /hpf (0-2); Squamous Epithelial Cell Urine Occasional /hpf (Few); Urobilinogen Urine 0.2 mg/dL (<2.0); WBC Urine 0-5 /hpf (0-3)
[2025-02-22 15:41] LABS: NT Pro B Type Natriuretic Pept 589 pg/mL (19.9-100); Troponin I 0.017 ng/mL (0.000-0.034)
[2025-02-22] MEDS: SODIUM CHLORIDE 0.9% IV 1,000 ML 999 ML IV CONT ×2 (15:41)
--- NOTE | 2025-02-22 15:43 | PC.NURSE ---
Pt. to CT.
[2025-02-22 15:46] LABS: Procalcitonin 0.3 ng/mL
--- NOTE | 2025-02-22 15:47 | PC.NURSE ---
Pharmacy called to tube cefepime to ER d/t pyxis being out of stock.
[2025-02-22 15:54] LABS: Influenza A QL RT-PCR Negative (Negative); Influenza B QL RT-PCR Negative (Negative); RSV RNA, RT-PCR Negative (Negative); SARS-CoV-2 RNA PCR Negative (Negative)
[2025-02-22] MEDS: CEFEPIME 2 GM/NS 50 ML 2 GM/50 ML BAG IVPB (16:00)
[2025-02-22 16:47] LABS: Alveolar/Arterial O2 Gradient 119.1 mmHg; Base Excess ABG 0.1 mEq/l (+/-2.0); Carboxyhemoglobin 1.1 % THb (0-2.0); Fractional Inspired Oxygen 36 %; HCO3 ABG 25.8 mEq/l (22.0-26.0); Methemoglobin ABG 0.4 %THb (0-1.5); Oxygen Content ABG 14.7 %vol (16.0-22.0); Oxygen Saturation ABG 95.8 % (95.0-100.0); Oxyhemoglobin 94.4 % THb (90.0-100.0); PCO2 ABG 46.9 mmHg (35.0-45.0); PO2 ABG 83.2 mmHg (80.0-100.0); PO2 FiO2 Ratio Arterial Blood 2.31 %; Reduced Hemoglobin 4.1 %THb (0-5.0); pH ABG 7.359 (7.350-7.450)
[2025-02-22 16:48] LABS: Device NASAL CANNULA; Modified Allen's Test Pass; Site Drawn RIGHT RADIAL
[2025-02-22] MEDS: VANCOMYCIN 1,750 MG/NS 500 ML 1,750 MG/500 ML BAG 250 MG IVPB (16:58)
--- OUTSIDE RECORDS SUMMARY | 2025-02-22 17:18 | XMS_ITS | Clinical Summary ---
Author Organization [facility] Address [address] [place] [address] Care Team Providers Care Manager Client Support Name Role Phone Shaan Mayfield MD Primary Care Provider Allergies No known active allergies Medications Albuterol [...] Chronic respiratory failure with hypoxia and hypercapnia ([facility]) 11/26/2022 COPD (chronic obstructive pu lmonary disease) ([facility]) 11/26/2022 Diastolic CHF ([facility]) 11/26/2022 Intracranial atherosclerosis 11/26/2022 Iron deficiency anemia, unspecified 05/16/2022 Pulmonary embolism without a cute cor pulmonale ([facility]) 02/13/2022 Essential hypertension 12/10/2016 Resolved Problems Problem Noted Date Diagnosed Date Resolved Date Elevated troponin 02/06/2023 04/22/2023 Tobacco use 02/06/2023 04/22/2023 Care Management 12/10/2022 10/15/2023 Microcytic anemia 01/21/2022 04/22/2023 Tobacco dependence 01/13/2019 Immunizations Immunization Administration Dates Next Due Pneumococcal (Pneumovax 23) [...] place to sleep or slept in a penitentiary (including now)? No 12/31/2022 Comments No Sex [...] - 2023-2 5 season) 2024 PHQ-2 (Physician [place]) 11/03/2024 DTaP, Tdap and Td Vaccines ( 2 - Td or Tdap) 10/14/2028 10/14/2018 Pneumococcal Vaccine: 50+ Years Completed 01/13/2019, 12/10/2016 Meningococcal B Vaccine [...] 171 <200 MG/DL 05/15/2022 3:40 PM CDT [facility] TRIGLYCERIDES 117 <150 MG/DL 05/15/2022 3:40 PM CDT [facility] HDL 47 >40 MG/DL 05/15/2022 3:40 PM CDT [facility] LDL-C 101(H) <100 MG/DL 05/15/2022 3:40 PM CDT [facility] VLDL CALCULATION 23 5 - 28 MG/DL 05/15/2022 3:40 PM CDT [facility] CHOL/HDL RATIO 3.6 0.0 - 4.0 05/15/2022 3:40 PM CDT [facility] LDL/HDL 2.1 0.41 - 2.13 05/15/2022 3:40 PM CDT [facility] NON HDL CHOLESTEROL 124 <140 MG/DL 05/15/2022 3:40 [facility] 05/15/2022 10:4 4 AM CDT us Shaan Mayfield MD LABORATORY Final Result [facility] [address] [place] [address], [place] [phone] from Last 3 Months or Most Recently Relevant to Health Maintenance Insurance [employer] Care Teams Manager Client Support Relationship Specialty Start Date End Date Shaan Mayfield MD [address] [place] [address] [phone] PCP - General INTERNAL MEDICINE 01/13/19
--- NOTE | 2025-02-22 17:25 | PC.NURSE ---
per SHAY Garcia, patient placed on external female catheter for comfort due to increased SOB when moving around.
--- NOTE | 2025-02-22 18:43 | PC.NURSE ---
Pt. states she is unable to use pure wick. Pt. assisting with standing to get to commode by forest technology professor. Pt. able to urinate with no difficulty.
[2025-02-22] MEDS: LACTATED RINGERS 1,000 ML 125 ML IV CONT (19:45)
[2025-02-23] VITALS (20 sets, daily range): BP systolic 108–190; BP diastolic 56–92; PULSE 93–122; RESP 16–22; TEMP 36.4–36.9; O2SAT 93–98
--- NOTE | 2025-02-23 01:26 | PM.IMHP ---
H&P: HPI History of Present Illness Date/Time: 02/23/25 01:26 Chief Complaint: Shortness of breath Narrative: This is a pleasant 74-year-old female with a history of prior tobacco dependence quit in 2022, COPD, diastolic congestive heart failure, hypertension who presents to [place] [facility] on 02/22/2025 with a complaint of shortness of breath for a few days. The patient does not know what triggered it however she reports it is hard to catch her breath and is worsened by exertion. She has had no chest pain nausea or vomiting. Many family members have had strep throat. On EMS arrival she was 70% on room air requiring nasal cannula at 2 liters/minute. She had sinus tachycardia. Reports a remote history of PE and she completed anticoagulation. She recently changed doctors and was prescribed Breztri 2 weeks [employer] for suspected COPD, she does report she had mild shortness of breath then as well. She has had some nausea and weakness since starting the inhaler and is worried about the side effects. Further ER evaluation demonstrated leukocytosis 16.7, ABG with a normal pH and pCO2 46, O2 saturation adequate on 2-4 L of oxygen via nasal cannula, negative lactic acid, mildly elevated BNP, negative troponin, negative procalcitonin. Swab for strep panel negative, quad viral screen negative. A chest CTA did not demonstrate a PE. CT abdomen pelvis did not demonstrate any etiology as well. Normal saline 2 L administered as well cefepime 2 g, vancomycin, Zofran, Tylenol 1000 mg p.o. x1. Review of Systems Review of Systems: All systems reviewed & are unremarkable except as noted in HPI and below (HPI) [facility] Past Medical History Medical History Tobacco dependence Hypertension Tobacco dependence Pneumonia due to COVID-19 virus (12/2021) Pulmonary embolism without acute cor pulmonale (12/2021) Surgical History Surgical History History of tubal ligation History of eye surgery Family History Family History (Updated 02/22/25 @ 20:55 by Domenica Melo RN) Father Family history of malignant neoplasm Patient's father is Sibling Family history of heart disease in male family member before age 55 Diabetes mellitus Family history of malignant neoplasm Heart disease Mother Family history of heart disease in male family member before age 55 Heart disease Patient's mother is Sibling Heart disease Cancer Hypertension Grandparent Diabetes mellitus Son Cancer Social History Social History Social History: Surrogate medical decision maker: Taye Mcgill, spouse. Code status: Full code. Smoking packs per day: 1 Smoking cigarettes per day: 20.0 Years smoked: 61 Smoking pack-years: 61.00 Smoking status: Former smoker Tobacco type: cigarettes Second hand tobacco smoke exposure: No Alcohol intake: current Drinks per week: 1 Alcohol use details: 1-4 a week Substance use: former Substance use type: marijuana Do You Feel Safe in your Home?: Yes Lack of Transportation: YES Lack of Food: Never True Current Housing: I Have Housing Concerned About Future Housing: No Difficulty Paying Gas/Electric Bills: No Difficulty Paying for Meds: No Currently Unemployed: No Education: Associate Degree Difficulty w/ Childcare or Family Care: No Living arrangements: with family Occupation/Education: retired Spiritual care concerns: No Agree to blood products: Yes Meds Home Medications and Allergies Home Medications ?Medication ?Instructions ?Recorded ?Confirmed ?Type aspirin 81 mg tablet,delayed 81 mg PO DAILY 02/07/25 02/22/25 History release biotin 10,000 mcg capsule 10,000 mcg PO DAILY 02/07/25 02/22/25 History budesonide 160 mcg-glycopyr 9 2 inh inhalation BID #10.7 grams 02/07/25 02/22/25 Rx mcg-formot 4.8 mcg/actuation HFA inhaler (Breztri Aerosphere) furosemide 20 mg tablet (Lasix) 20 mg PO QAM #90 tabs 02/07/25 02/22/25 Rx multivitamin (Multiple Vitamins 1 tablet PO DAILY 02/07/25 02/22/25 History tablet) ferrous sulfate 325 mg (65 mg 325 mg PO DAILY 02/22/25 02/22/25 History iron) tablet Allergies Allergy/AdvReac Type Severity Reaction Status Date / Time latex Allergy Unknown Rash Verified 02/22/25 21:07 apixaban (From Eliquis) AdvReac Unknown Bleeding Verified 02/22/25 21:07 Vital Signs Vital Signs - 24 hr 02/22/25 14:42 02/22/25 14:55 02/22/25 14:56 Temperature 102.3 F H Pulse Rate 138 H 135 H Respiratory Rate 22 H Blood Pressure 109/78 Pulse Oximetry 86 L 92 Oxygen Delivery Room Air Nasal Cannula Oxygen Flow Rate 2 02/22/25 15:36 02/22/25 16:04 02/22/25 16:54 Temperature Pulse Rate 133 H 124 H Respiratory Rate 17 27 H Blood Pressure 93/65 L 95/82 L Pulse Oximetry 93 96 97 Oxygen Delivery Nasal Cannula Oxygen Flow Rate 2 02/22/25 18:00 02/22/25 19:20 02/22/25 19:44 Temperature 97.4 F L Pulse Rate 132 H 110 H 114 H Respiratory Rate 26 H 24 H 26 H Blood Pressure 92/68 L 112/67 129/66 Pulse Oximetry 94 95 95 Oxygen Delivery Oxygen Flow Rate 02/22/25 20:15 02/22/25 21:00 02/22/25 22:47 Temperature 98.2 F Pulse Rate 114 H 104 H Respiratory Rate 18 Blood Pressure 142/69 H Pulse Oximetry 98 96 100 Oxygen Delivery Nasal Cannula Nasal Cannula Oxygen Flow Rate 3 1 02/23/25 00:00 Temperature 98.0 F Pulse Rate 105 H Respiratory Rate 18 Blood Pressure 159/57 H Pulse Oximetry 95 Oxygen Delivery Oxygen Flow Rate Exam Const: General: comfortable and no acute distress HENMT: Mouth: Yes moist mucous membranes Eyes: Pupils: Equal, round and reactive pupils present Neck: Neck: supple Resp: Effort & Inspection: normal respiratory effort Other: Rhonchi right lower and right mid lung bernal. No wheezing. Cardio: Rate: regular rate Rhythm: regular rhythm GI: GI Palp: Yes Soft to palpation and No Tenderness to palpation present (GI) Neuro: Motor exam (neuro): 5/5 motor strength present throughout Sensory Exam: normal sensation Extrem: General: no edema H&P: Results Labs Labs: Short CBC 02/22/25 Range/Units 15:05 WBC 16.7 H (4.5-10.0) K/mm3 Hgb 11.5 L (12.0-15.0) g/dL Hct 40.2 (37.0-47.0) % Plt Count 306 (150-375) k/mm3 BMP 02/22/25 15:05 Sodium 137 Potassium 4.7 Chloride 101 Carbon Dioxide 24 BUN 14 D Creatinine 0.50 L Glucose 167 H Calcium 8.6 Cardiac Enzymes 02/22/25 02/22/25 Range/Units 15:05 15:05 Troponin I 0.017 Cancelled (0.000-0.034) ng/mL Liver Function 02/22/25 Range/Units 15:05 Total Bilirubin 0.7 (0.2-1.3) mg/dL AST 57 H (14-36) U/L ALT 43 H (6-35) U/L Alkaline Phosphatase 107 (38-126) U/L Albumin 4.1 (3.5-5.1) g/dL Urine 02/22/25 Range/Units 15:27 Urine Color Yellow (Yellow) Urine Appearance Clear (Clear) Urine pH 7.0 (5.0-9.0) Ur Specific [place] 1.020 (1.001-1.035) Urine Protein 2+ H (Negative) mg/dL Urine Glucose (UA) Negative (Negative) mg/dL Assessment and Plan Assessment and plan (1) Essential hypertension: Code(s): I10 - Essential (primary) hypertension Status: Acute (2) Diastolic CHF: Code(s): I50.30 - Unspecified diastolic (congestive) heart failure Status: Acute (3) Tachycardia: Code(s): R00.0 - Tachycardia, unspecified Status: Acute (4) Acute respiratory failure with hypoxemia: Code(s): J96.01 - Acute respiratory failure with hypoxia Status: Acute Plan This is a pleasant 74-year-old female with a history of prior tobacco dependence quit in 2022, COPD, diastolic congestive heart failure, hypertension who presents to [place] [facility] on 02/22/2025 with a complaint of shortness of breath for a few days. The patient does not know what triggered it however she reports it is hard to catch her breath and is worsened by exertion. She has had no chest pain nausea or vomiting. Many family members have had strep throat. On EMS arrival she was 70% on room air requiring nasal cannula at 2 liters/minute. She had sinus tachycardia. Reports a remote history of PE and she completed anticoagulation. She recently changed doctors and was prescribed Breztri 2 weeks [employer] for suspected COPD, she does report she had mild shortness of breath then as well. She has had some nausea and weakness since starting the inhaler and is worried about the side effects. Further ER evaluation demonstrated leukocytosis 16.7, ABG with a normal pH and pCO2 46, O2 saturation adequate on 2-4 L of oxygen via nasal cannula, negative lactic acid, mildly elevated BNP, negative troponin, negative procalcitonin. Swab for strep panel negative, quad viral screen negative. A chest CTA did not demonstrate a PE. CT abdomen pelvis did not demonstrate any etiology as well. Normal saline 2 L administered as well cefepime 2 g, vancomycin, Zofran, Tylenol 1000 mg p.o. x1. ----- Significant rhonchi in the right lung bernal. Opacity on CT scan as well. Probable pneumonia, continue vancomycin and cefepime and may downgrade as soon as her symptomatology is stable/improved. Will also administer Zithromax. Blood cultures have been drawn in the ER. Quad viral screen negative. Check full respiratory viral pathogen panel as well as Legionella and pneumococcal urinary antigens. Start Xopenex and ipratropium nebs. Trend leukocytosis. Restart [employer] medications except for furosemide. Consider restarting in the morning. ----- SCDs. Patient wishes to be full code. Heart healthy diet.
[2025-02-23] MEDS: LEVALBUTEROL NEB 1.25 MG/3 ML INHALATION ×4 (01:37→20:14)
[2025-02-23] MEDS: AZITHROMYCIN 500 MG/NS 250 ML 500 MG/250 ML BAG 250 MG IVPB (01:58)
[2025-02-23] MEDS: CEFEPIME 2 GM/NS 50 ML 2 GM/50 ML BAG IVPB ×4 (01:58→21:02)
[2025-02-23] MEDS: hydrALAZINE HCL 20 MG/ML VIAL 10 MG IV PUSH (04:38)
[2025-02-23 05:14] LABS: Basophils Percent Auto 0.3 % (0.2-1.2); Eosinophils Percent Auto 0.3 % (0-4.4); Hematocrit 35.8 % (37.0-47.0); Hemoglobin 9.5 g/dL (12.0-15.0); Immature Granulocyte Absolute 0.07 K/mm3 (0.00-0.031); Immature Granulocyte Percent A 0.5 % (0-0.5); Lymphocytes Absolute Auto 0.93 K/mm3 (0.9-3.2); Lymphocytes Percent Auto 6.9 % (18.3-44.2); Mean Corpuscular HGB Conc 26.5 g/dl (32-36); Mean Corpuscular Hemoglobin 25.5 pg (26-34); Mean Platelet Volume 10.3 fl (7.4-10.4); Monocytes Absolute Auto 1.5 K/mm3 (0.1-0.6); Monocytes Percent Auto 10.7 % (2.6-8.5); Neutrophils Percent Auto 81.3 % (45.5-73.1); Platelet Count Result 260 k/mm3 (150-375); Red Blood Count 3.73 M/mm3 (4.2-5.4); Red Cell Distribution Width 24.5 % (11.5-14.5); White Blood Count 13.5 K/mm3 (4.5-10.0)
[2025-02-23 05:28] LABS: Alanine Aminotransferase 34 U/L (6-35); Albumin Level 3.4 g/dL (3.5-5.1); Alkaline Phosphatase 94 U/L (38-126); Anion Gap 7 mmol/L (4-12); Aspartate Amino Transferase 36 U/L (14-36); Bilirubin,Total 0.4 mg/dL (0.2-1.3); Blood Urea Nitrogen 12 mg/dL (7-17); Calcium 7.7 mg/dL (8.4-10.2); Carbon Dioxide 27 mmol/L (22-30); Chloride 108 mmol/L (98-107); Estimated CRCL calculation 65 ml/min; Estimated Glomerular Filt Rate > 60; Glucose 147 mg/dL (65-110); Magnesium 2.2 mg/dL (1.6-2.3); Potassium 3.8 mmol/L (3.4-5.0); Sodium 142 mmol/L (137-145)
[2025-02-23 05:49] LABS: Band Neutrophils Percent 0 % (0-6)
[2025-02-23 05:50] LABS: Anisocytosis 1+; Platelet Estimate Adequate (Adequate); Schistocytes None Seen
--- NOTE | 2025-02-23 06:00 | ECHO_ITS ---
Patient Info Name: Georgette Mcgill Age: 74 years : 1950 Gender: Female Ht: 60 in Wt: 154 lbs BSA: 1.75 m2 HR: 113 bpm BP: 180 / 69 mmHg Heart Rhythm: Tachycardia Technical Quality: Fair Exam Date: 02/23/2025 9:11 AM Exam Location: Echo Lab Patient Status: Inpatient Admit Date: 02/22/2025 Staff Ordering Physician: Eyal Paris MD Putty Maker: Josselyn Costello RDCS Attending Provider: Bety Dia MD Referring Physician: Wellington GUZMAN; Exam Type: CA echo doppler color flow Study Info Indications - Tachicardia, fever Complete two-dimensional, color flow and Doppler transthoracic echocardiogram is performed. Summary 1. Technically difficult study with limited views. 2. Left ventricular chamber dimension is normal. 3. Left ventricular systolic function is hyperdynamic, estimated at >70%. 4. There is mildly increased left ventricular wall thickness. 5. Right ventricular systolic function is normal. 6. There is mild tricuspid valve regurgitation. Left Ventricle Left ventricular chamber dimension is normal. Left ventricular systolic function is hyperdynamic, estimated at >70%. There is mildly increased left ventricular wall thickness. The left ventricular diastolic function is abnormal. Right Ventricle Right ventricular chamber dimension is normal. Right ventricular systolic function is normal. Left Atria Left atrial chamber dimension is normal. Right Atria Right atrial chamber dimension is normal. Atrial Septum Intact interatrial septum visualized by color flow imaging. Aortic Valve The aortic valve is probable trileaflet. There is no aortic valve stenosis. There is no aortic valve regurgitation. There is mild aortic valve calcification. Pulmonic Valve The pulmonic valve is not well visualized. Mitral Valve There is trace mitral valve regurgitation. Tricuspid Valve There is mild tricuspid valve regurgitation. Pericardium/Pleural The pericardium appears epicardial fat pad. There is no pericardial effusion. Inferior Vena Cava Inferior vena cava is not well visualized. Aorta The aortic root size at the sinus of Valsalva is normal. Left Ventricular Outflow Tract Name Value Normal LVOT 2D LVOT Diameter 2.0 cm LVOT Doppler LVOT Peak Gradient 7 mmHg LVOT Mean Gradient 4 mmHg LVOT VTI 27 cm LVOT VTI/AV VTI Ratio 0.7 LVOT Stroke Volume 85 ml LVOT CO 9.8 l/min LVOT CI 5.6 l/min/m2 Pulmonic Valve Name Value Normal RVOT Doppler RVOT Peak Gradient 5 mmHg PV Doppler PV Peak Gradient 10 mmHg Mitral Valve Name Value Normal MV Diastolic Function MV E Peak Velocity 0 cm/s MV A Peak Velocity 169 cm/s MV E/A 0.0 MV Annular TDI MV E/e' (Septal) 0.0 <=8.0 MV E/e' (Lateral) 0.0 <=8.0 MV E/e' (Average) 0.0 Tricuspid Valve Name Value Normal TV Regurgitation Doppler TR Peak Velocity 298 cm/s TR Peak Gradient 36 mmHg Aortic Valve Name Value Normal AV Doppler AV Peak Velocity 192 cm/s AV Peak Gradient 15 mmHg AV Mean Gradient 8 mmHg AV VTI 38 cm AV Area (Cont Eq VTI) 2.2 cm2 >=3.0 AV Area (Cont Eq Jono) 2.1 cm2 AV Regurgitation 2D LVOT Area 3.1 cm2 Ventricles Name Value Normal LV Dimensions 2D/MM IVS Diastolic Thickness (2D) 1.2 cm 0.6-1.0 LVID Diastole (2D) 4.4 cm 3.8-5.2 LVIW Diastolic Thickness (2D) 0.8 cm 0.6-0.9 LVID Systole (2D) 3.0 cm 2.2-3.5 LVOT Diameter 2.0 cm LV Mass (2D Cubed) 143.71 g 67.00-162.00 LV Mass Index (2D Cubed) 82 g/m2 43-95 Relative Wall Thickness (2D) 0.36 LV Fractional Shortening/Ejection Fraction 2D/MM LV Fractional Shortening (2D) 30 % 27-45 LV EF (2D Teicholz) 58 % 54-74 Atria Name Value Normal LA Dimensions LA Volume (4C A-L) 40 ml RA Dimensions RA Area (4C) 15.7 cm2 <=18.0 Report Signatures
[2025-02-23] MEDS: FUROSEMIDE INJ 40 MG/4 ML VIAL IV PUSH (06:09)
--- NOTE | 2025-02-23 07:27 | PM.IMPN ---
Progress Note: A&P Assessment and Plan (1) Essential hypertension: Code(s): I10 - Essential (primary) hypertension Status: Acute (2) Diastolic CHF: Code(s): I50.30 - Unspecified diastolic (congestive) heart failure Status: Acute (3) Tachycardia: Code(s): R00.0 - Tachycardia, unspecified Status: Acute (4) Acute respiratory failure with hypoxemia: Code(s): J96.01 - Acute respiratory failure with hypoxia Status: Acute Plan PNA Vital signs improved and stable RSV COVID flu negative Started on doxycycline, cefepime and vancomycin Will deescalate antibiotics once MRSA and blood culture results monitor cultures MRSA pending encourage oral intake HTN Hydralazine 10 mg IV q.6 hours p.r.n. Subjective Date/time seen: 02/23/25 07:27 Interval history: 74-year-old female with a history of prior tobacco dependence quit in 2022, pulmonary embolism completed anticoagulation, COPD, diastolic congestive heart failure, hypertension who presents to [facility] on 02/22/2025 with a complaint of shortness of breath for a few days. Patient is admitted in the setting of pneumonia. 02/23/2025: Patient had episodes of HTN and was resolved without giving medication. Patient endorse former smoking. Review of Systems Review of Systems: All systems reviewed & are unremarkable except as noted in HPI and below (HPI) Exam Const: General: comfortable and no acute distress HENMT: Mouth: Yes moist mucous membranes Eyes: Pupils: Equal, round and reactive pupils present Neck: Neck: supple Resp: Effort & Inspection: normal respiratory effort Other: Rhonchi right lower and right mid lung bernal. No wheezing. Cardio: Rate: regular rate Rhythm: regular rhythm Neuro: Cranial nerves: Yes Equal, round and reactive pupils present Motor exam (neuro): 5/5 motor strength present throughout Sensory Exam: normal sensation Extrem: General: no edema Objective Data Vital Signs Vital Signs: Vital Signs - 24 hr 02/22/25 14:42 02/22/25 14:55 02/22/25 14:56 Temperature 102.3 F H Pulse Rate 138 H 135 H Respiratory Rate 22 H Blood Pressure 109/78 Pulse Oximetry 86 L 92 Oxygen Delivery Room Air Nasal Cannula Oxygen Flow Rate 2 02/22/25 15:36 02/22/25 16:04 02/22/25 16:54 Temperature Pulse Rate 133 H 124 H Respiratory Rate 17 27 H Blood Pressure 93/65 L 95/82 L Pulse Oximetry 93 96 97 Oxygen Delivery Nasal Cannula Oxygen Flow Rate 2 02/22/25 18:00 02/22/25 19:20 02/22/25 19:44 Temperature 97.4 F L Pulse Rate 132 H 110 H 114 H Respiratory Rate 26 H 24 H 26 H Blood Pressure 92/68 L 112/67 129/66 Pulse Oximetry 94 95 95 Oxygen Delivery Oxygen Flow Rate 02/22/25 20:15 02/22/25 21:00 02/22/25 22:00 Temperature 98.2 F Pulse Rate 114 H 104 H Respiratory Rate 18 Blood Pressure 142/69 H Pulse Oximetry 98 96 Oxygen Delivery Nasal Cannula Oxygen Flow Rate 3 02/22/25 22:47 02/23/25 00:00 02/23/25 00:00 Temperature 98.0 F Pulse Rate 104 H 105 H Respiratory Rate 18 Blood Pressure 159/57 H Pulse Oximetry 100 95 93 Oxygen Delivery Nasal Cannula Nasal Cannula Oxygen Flow Rate 1 3 02/23/25 00:00 02/23/25 01:37 02/23/25 01:48 Temperature Pulse Rate 93 102 H 108 H Respiratory Rate 16 18 Blood Pressure Pulse Oximetry Oxygen Delivery Oxygen Flow Rate 02/23/25 02:00 02/23/25 04:00 02/23/25 04:00 Temperature 97.8 F Pulse Rate 105 H 112 H Respiratory Rate 18 Blood Pressure 180/69 H Pulse Oximetry 93 95 Oxygen Delivery Nasal Cannula Oxygen Flow Rate 3 02/23/25 04:00 02/23/25 06:00 02/23/25 06:00 Temperature Pulse Rate 112 H 113 H Respiratory Rate Blood Pressure 190/60 H Pulse Oximetry Oxygen Delivery Oxygen Flow Rate Intake/Output Intake/Output: Intake & Output 02/20/25 02/21/25 02/22/25 02/23/25 23:59 23:59 23:59 23:59 Intake Total 2650 300 Output Total 150 700 Balance 2500 -400 Meds/Results Medications: Active Medications Generic Name Dose Route Start Last Admin Trade Name Freq PRN Reason Stop Dose Admin Acetaminophen 650 mg 02/22/25 19:31 Acetaminophen 325 Mg Tablet PO Q4H PRN Mild Pain (1-3) or Fever Aspirin 81 mg 02/23/25 09:00 Aspirin 81 Mg Enteric Tablet PO DAILY SLIME Enoxaparin Sodium 40 mg 02/23/25 09:00 Enoxaparin 40 Mg/0.4 Ml Syringe SUB-Q DAILY [facility] Ferrous Sulfate 325 mg 02/23/25 09:00 Ferrous Sulfate [address] PO DAILY SLIME Furosemide 20 mg 02/23/25 09:00 Furosemide 20 Mg Tablet PO QAM SLIME Vancomycin HCl 1,250 mg in 250 mls @ 166.667 mls/hr 02/23/25 11:00 Vancomycin 1,250 Mg/Ns 250 Ml IVPB Q18H SLIME Cefepime HCl 2 gm in 50 mls @ 100 mls/hr 02/23/25 01:25 02/23/25 02:28 Maxipime 2 Gm/Ns 50 Ml IVPB Infused Q8HR SLIME Infusion Levalbuterol HCl 1.25 mg 02/23/25 02:00 02/23/25 02:00 Levalbuterol Neb 1.25 Mg/3 Ml INHALATION Not Given Q6HRT SLIME Multivitamins Therapeutic 1 tablet 02/23/25 09:00 Multivitamins Therapeutic Tab (*Bkc) PO DAILY SLIME Perflutren Lipid Microsphere 0 ml 02/22/25 19:31 Perflutren Lipid Microspheres 1.5 Ml Vial Diluted To 10 Ml Total Volume IV PUSH 02/25/25 19:32 ONCE PRN adequate visualization Protocol Radiology Results: ITS Impressions Chest CTA 02/22/25 15:57 IMPRESSION: 1. No pulmonary embolism. 2. No acute cardiopulmonary pathology. 3. Mediastinal lymphadenopathy. Clinical evaluation advised. 4. Atelectatic area in the middle lobe adjacent to the oblique fissure. 5. Fat infiltration of the liver. 6. Sclerotic changes in T12 and L1 unchanged from previous examination Abdomen/Pelvis CT 02/22/25 18:23 IMPRESSION: No acute findings within the abdomen or pelvis to account for patient's presentation, as detailed above. Chest X-Ray 02/23/25 06:20 Impression: Minimal haziness right lung base. Correlate for atelectasis versus pneumonia. Labs Labs: Laboratory Results - last 24 hr 02/22/25 02/22/25 02/22/25 15:04 15:05 15:05 WBC 16.7 H RBC 4.51 Hgb 11.5 L Hct 40.2 MCV 89.1 MCH 25.5 L MCHC 28.6 L RDW 24.5 H Plt Count 306 MPV 9.8 Immature Gran % (Auto) 0.4 Neut % (Auto) 90.6 H Lymph % (Auto) 3.1 L [place] % (Auto) 5.4 Eos % (Auto) 0.1 Baso % (Auto) 0.4 Lymph # (Auto) 0.51 L [place] # (Auto) 0.9 H Eos # (Auto) 0.0 Baso # (Auto) 0.1 Abs Immat Gran (auto) 0.06 H Absolute Neuts (auto) 15.1 H Absolute Nucleated RBC 0.000 Band Neutrophils % Not Reportable Nucleated RBC % 0.0 Platelet Estimate Adequate Hypochromasia 1+ Anisocytosis 1+ Ovalocytes 1+ Schistocytes None seen PT 13.8 INR 1.0 APTT 30.4 Puncture Site ABG pH ABG pCO2 ABG pO2 ABG PO2/FiO2 Ratio ABG HCO3 ABG O2 Saturation ABG O2 Content ABG Base Excess A-a Gradient Oxyhemoglobin Carboxyhemoglobin Methemoglobin Reduced Hemoglobin Total Hemoglobin O2 Delivery Device O2 Liters/Min FiO2 Sodium 137 Potassium 4.7 Chloride 101 Carbon Dioxide 24 Anion Gap 12 BUN 14 D Creatinine 0.50 L Estim Creat Clear Calc 70 Estimated GFR > 60 Glucose 167 H Lactic Acid 1.6 Calcium 8.6 Magnesium Total Bilirubin 0.7 AST 57 H ALT 43 H Alkaline Phosphatase 107 Troponin I 0.017 Cancelled C-Reactive Protein 3.0 H NT-Pro-B Natriuret Pep Total Protein Albumin Procalcitonin Urine Color Urine Appearance Urine pH Ur Specific [place] Urine Protein Urine Glucose (UA) Urine Ketones Ur Blood (Man) Urine Nitrate Urine Bilirubin Urine Urobilinogen Leukocyte Esterase Rfl Urine RBC Urine WBC Ur Squamous Epith Cells Urine Bacteria Urine Casts Influenza A (RT-PCR) Negative Influenza B (RT-PCR) Negative RSV (RT-PCR) Negative SARS-CoV-2 RNA (RT-PCR) Negative Group A Strep (PCR) Not detected 02/22/25 02/22/25 02/22/25 15:05 15:05 15:27 WBC RBC Hgb Hct MCV MCH MCHC RDW Plt Count MPV Immature Gran % (Auto) Neut % (Auto) Lymph % (Auto) [place] % (Auto) Eos % (Auto) Baso % (Auto) Lymph # (Auto) [place] # (Auto) Eos # (Auto) Baso # (Auto) Abs Immat Gran (auto) Absolute Neuts (auto) Absolute Nucleated RBC Band Neutrophils % Nucleated RBC % Platelet Estimate Hypochromasia Anisocytosis Ovalocytes Schistocytes PT INR APTT Puncture Site ABG pH ABG pCO2 ABG pO2 ABG PO2/FiO2 Ratio ABG HCO3 ABG O2 Saturation ABG O2 Content ABG Base Excess A-a Gradient Oxyhemoglobin Carboxyhemoglobin Methemoglobin Reduced Hemoglobin Total Hemoglobin O2 Delivery Device O2 Liters/Min FiO2 Sodium Potassium Chloride Carbon Dioxide Anion Gap BUN Creatinine Estim Creat Clear Calc Estimated GFR Glucose Lactic Acid Calcium Magnesium Total Bilirubin AST ALT Alkaline Phosphatase Troponin I C-Reactive Protein Cancelled NT-Pro-B Natriuret Pep 589 H Cancelled Total Protein 7.0 Albumin 4.1 Procalcitonin 0.3 Urine Color Yellow Urine Appearance Clear Urine pH 7.0 Ur Specific [place] 1.020 Urine Protein 2+ H Urine Glucose (UA) Negative Urine Ketones Negative Ur Blood (Man) Negative Urine Nitrate Negative Urine Bilirubin Negative Urine Urobilinogen 0.2 Leukocyte Esterase Rfl Negative Urine RBC 0-2 Urine WBC 0-5 Ur Squamous Epith Cells Occasional Urine Bacteria None seen Urine Casts 0-2 Influenza A (RT-PCR) Influenza B (RT-PCR) RSV (RT-PCR) SARS-CoV-2 RNA (RT-PCR) Group A Strep (PCR) 02/22/25 02/23/25 16:42 03:53 WBC 13.5 H RBC 3.73 L Hgb 9.5 L Hct 35.8 L MCV 96.0 D MCH 25.5 L MCHC 26.5 L RDW 24.5 H Plt Count 260 MPV 10.3 Immature Gran % (Auto) 0.5 Neut % (Auto) 81.3 H Lymph % (Auto) 6.9 L [place] % (Auto) 10.7 H Eos % (Auto) 0.3 Baso % (Auto) 0.3 Lymph # (Auto) 0.93 [place] # (Auto) 1.5 H Eos # (Auto) 0.0 Baso # (Auto) 0.0 Abs Immat Gran (auto) 0.07 H Absolute Neuts (auto) 11.0 H Absolute Nucleated RBC 0.000 Band Neutrophils % 0 Nucleated RBC % 0.0 Platelet Estimate Adequate Hypochromasia Anisocytosis 1+ Ovalocytes Schistocytes None seen PT INR APTT Puncture Site Right radial ABG pH 7.359 ABG pCO2 46.9 H ABG pO2 83.2 ABG PO2/FiO2 Ratio 2.31 ABG HCO3 25.8 ABG O2 Saturation 95.8 ABG O2 Content 14.7 L ABG Base Excess 0.1 A-a Gradient 119.1 Oxyhemoglobin 94.4 Carboxyhemoglobin 1.1 Methemoglobin 0.4 Reduced Hemoglobin 4.1 Total Hemoglobin 11.0 L O2 Delivery Device Nasal cannula O2 Liters/Min 4.0 FiO2 36 Sodium 142 Potassium 3.8 Chloride 108 H Carbon Dioxide 27 Anion Gap 7 BUN 12 Creatinine 0.54 L Estim Creat Clear Calc 65 Estimated GFR > 60 Glucose 147 H Lactic Acid Calcium 7.7 L Magnesium 2.2 Total Bilirubin 0.4 AST 36 ALT 34 Alkaline Phosphatase 94 Troponin I C-Reactive Protein NT-Pro-B Natriuret Pep Total Protein 6.0 L Albumin 3.4 L Procalcitonin Urine Color Urine Appearance Urine pH Ur Specific [place] Urine Protein Urine Glucose (UA) Urine Ketones Ur Blood (Man) Urine Nitrate Urine Bilirubin Urine Urobilinogen Leukocyte Esterase Rfl Urine RBC Urine WBC Ur Squamous Epith Cells Urine Bacteria Urine Casts Influenza A (RT-PCR) Influenza B (RT-PCR) RSV (RT-PCR) SARS-CoV-2 RNA (RT-PCR) Group A Strep (PCR) Hospitalist MIPS Advance Care Plan I have confirmed that the patient's Advanced Care Plan is present, code status is documented, or surrogate decision maker is listed in patient medical record.: Yes Medication Reconciliation I have utilized all available resources to obtain, update and review the patients current medications (includes all prescriptions, OTC, herbals, cannabis, and nutritional supplements).: Yes
[2025-02-23] MEDS: DOXYCYCLINE HYCLATE 100 MG TABLET PO ×2 (08:54→21:02)
[2025-02-23] MEDS: FUROSEMIDE 20 MG TABLET PO (08:54)
[2025-02-23] MEDS: MULTIVITAMINS THERAPEUTIC TAB (*BKC) 1 TABLET PO (08:54)
[2025-02-23] MEDS: FERROUS SULFATE 325 MG TABLET DR PO (08:54)
[2025-02-23] MEDS: ASPIRIN 81 MG ENTERIC TABLET PO (08:55)
[2025-02-23] MEDS: ENOXAPARIN 40 MG/0.4 ML SYRINGE SUB-Q (09:06)
[2025-02-23] MEDS: VANCOMYCIN 1,250 MG/NS 250 ML 1,250 MG/250 ML BAG 166.67 MG IVPB (11:28)
--- NOTE | 2025-02-23 12:25 | P.CDI_ITS ---
CDI Query Clarification Request 1) Please specify acuity of heart failure if known. * Acute * Chronic * Acute on Chronic * Unknown 2) Please clarify is sepsis has been ruled in or ruled out. The medical chart reflects the followin-year-old female with a past medical history including COPD, diastolic congestive heart failure, hypertension. Patient presents to the emergency room with chief complaint of shortness of breath, increased heart rate hypoxia. Patient lives at home with her family who have been having recent symptoms of strep throat. Patient notes that she had a mild sore throat as well before her symptoms began. Patient was noted to be hypoxic in the 70% on EMS arrival requiring nasal cannula. She is hypoxic here at 86% on room air requiring 2 L nasal cannula 92%. Patient is a heart rate in the 130s with regular rate, febrile at 39.1. Patient denies any chest pain or chest pressure. Endorses dyspnea and has remote history of a PE that was provoked. She completed a course of anticoagulation. Denies any worsening leg swelling or unilateral leg swelling. No vomiting, headache, vision changes. No chills. No urinary complaints or abdominal pain. Further ER evaluation demonstrated leukocytosis 16.7, ABG with a normal pH and pCO2 46, O2 saturation adequate on 2-4 L of oxygen via nasal cannula, negative lactic acid, mildly elevated BNP, negative troponin, negative procalcitonin. Swab for strep panel negative, quad viral screen negative. A chest CTA did not demonstrate a PE. CT abdomen pelvis did not demonstrate any etiology as well. Lactic acid 02/22: 1.6 Lasix 40 mg IV x1 Azithromycin 500 mg IV x1 cefepime 2gm IV x1, Q8HR doxycycline 100 mg PO Q12HR vancomycin 1250 mg IV Q18HR <Keesha Lopez RN - Last Filed: 02/23/25 12:30> Clarified Diagnosis Clarified Diagnosis: Chronic Heart Failure <Cm Arroyo MD - Last Filed: 02/24/25 07:20>
[2025-02-24] VITALS (13 sets, daily range): BP systolic 100–163; BP diastolic 58–78; PULSE 102–119; RESP 16–22; TEMP 36.6–37.1; O2SAT 92–97
[2025-02-24 04:30] LABS: Hematocrit 33.6 % (37.0-47.0); Hemoglobin 9.3 g/dL (12.0-15.0); Mean Corpuscular HGB Conc 27.7 g/dl (32-36); Mean Corpuscular Hemoglobin 25.7 pg (26-34); Mean Corpuscular Volume 92.8 fl (80-100); Mean Platelet Volume 9.9 fl (7.4-10.4); Platelet Count Result 245 k/mm3 (150-375); Red Blood Count 3.62 M/mm3 (4.2-5.4)
[2025-02-24 04:42] LABS: Alanine Aminotransferase 29 U/L (6-35); Albumin Level 3.3 g/dL (3.5-5.1); Alkaline Phosphatase 87 U/L (38-126); Anion Gap 7 mmol/L (4-12); Aspartate Amino Transferase 32 U/L (14-36); Bilirubin,Total 0.3 mg/dL (0.2-1.3); Blood Urea Nitrogen 15 mg/dL (7-17); Calcium 8.2 mg/dL (8.4-10.2); Carbon Dioxide 29 mmol/L (22-30); Chloride 104 mmol/L (98-107); Estimated CRCL calculation 65 ml/min; Estimated Glomerular Filt Rate > 60; Glucose 190 mg/dL (65-110); Potassium 3.5 mmol/L (3.4-5.0); Sodium 140 mmol/L (137-145)
[2025-02-24 04:59] LABS: Vancomycin Trough 7.5 ug/mL (10.0-20.0)
[2025-02-24] MEDS: CEFEPIME 2 GM/NS 50 ML 2 GM/50 ML BAG IVPB ×3 (05:14→21:01)
[2025-02-24] MEDS: VANCOMYCIN 1,500 MG/NS 500 ML 1,500 MG/500 ML BAG 250 MG IVPB (05:46)
[2025-02-24] MEDS: LEVALBUTEROL NEB 1.25 MG/3 ML INHALATION ×3 (07:14→20:12)
[2025-02-24] MEDS: MULTIVITAMINS THERAPEUTIC TAB (*BKC) 1 TABLET PO (08:41)
[2025-02-24] MEDS: FUROSEMIDE 20 MG TABLET PO (08:41)
[2025-02-24] MEDS: DOXYCYCLINE HYCLATE 100 MG TABLET PO ×2 (08:41→20:59)
[2025-02-24] MEDS: ASPIRIN 81 MG ENTERIC TABLET PO (08:41)
[2025-02-24] MEDS: FERROUS SULFATE 325 MG TABLET DR PO (08:42)
[2025-02-24] MEDS: ENOXAPARIN 40 MG/0.4 ML SYRINGE SUB-Q (08:52)
--- NOTE | 2025-02-24 10:34 | PM.IMPN ---
Progress Note: A&P Assessment and Plan (1) Essential hypertension: Code(s): I10 - Essential (primary) hypertension Status: Acute (2) Diastolic CHF: Code(s): I50.30 - Unspecified diastolic (congestive) heart failure Status: Acute (3) Tachycardia: Code(s): R00.0 - Tachycardia, unspecified Status: Acute (4) Acute respiratory failure with hypoxemia: Code(s): J96.01 - Acute respiratory failure with hypoxia Status: Acute Plan PNA Vital signs improved and stable RSV COVID flu negative Started on doxycycline, cefepime and dc vancomycin Will deescalate antibiotics once MRSA and blood culture results monitor cultures MRSA pending encourage oral intake HTN Currently does not require medication Subjective Date/time seen: 02/24/25 10:34 Interval history: Interval history: 74-year-old female with a history of prior tobacco dependence quit in 2022, pulmonary embolism completed anticoagulation, COPD, diastolic congestive heart failure, hypertension who presents to [facility] on 02/22/2025 with a complaint of shortness of breath for a few days. Patient is admitted in the setting of pneumonia. Echocardiogram shows left ventricular systolic function is hyperdynamic estimated at greater than 70%. 02/24: Continues to improve well Review of Systems Review of Systems: All systems reviewed & are unremarkable except as noted in HPI and below (HPI) Exam Const: General: comfortable and no acute distress HENMT: Mouth: Yes moist mucous membranes Eyes: Pupils: Equal, round and reactive pupils present Neck: Neck: supple Resp: Effort & Inspection: normal respiratory effort Other: Rhonchi right lower and right mid lung bernal. No wheezing. Cardio: Rate: regular rate Rhythm: regular rhythm Neuro: Cranial nerves: Yes Equal, round and reactive pupils present Motor exam (neuro): 5/5 motor strength present throughout Sensory Exam: normal sensation Extrem: General: no edema Objective Data Vital Signs Vital Signs: Vital Signs - 24 hr 02/23/25 12:00 02/23/25 12:00 02/23/25 12:00 Temperature 98.2 F Pulse Rate 114 H 114 H Respiratory Rate 20 Blood Pressure 108/56 L Pulse Oximetry 96 96 Oxygen Delivery Nasal Cannula Oxygen Flow Rate 3 02/23/25 13:29 02/23/25 13:41 02/23/25 14:00 Temperature Pulse Rate 106 H 106 H 106 H Respiratory Rate 20 20 Blood Pressure Pulse Oximetry Oxygen Delivery Oxygen Flow Rate 02/23/25 16:00 02/23/25 16:00 02/23/25 18:00 Temperature 98.4 F Pulse Rate 107 H 100 104 H Respiratory Rate 18 Blood Pressure 113/92 H Pulse Oximetry 97 Oxygen Delivery Oxygen Flow Rate 02/23/25 20:00 02/23/25 20:00 02/23/25 20:00 Temperature 97.6 F Pulse Rate 106 H 108 H Respiratory Rate 18 Blood Pressure 185/60 H Pulse Oximetry 96 98 Oxygen Delivery Nasal Cannula Oxygen Flow Rate 1 02/23/25 20:14 02/23/25 20:14 02/23/25 22:00 Temperature Pulse Rate 106 H 106 H 109 H Respiratory Rate 18 18 Blood Pressure Pulse Oximetry 98 Oxygen Delivery Nasal Cannula Oxygen Flow Rate 2 02/23/25 22:26 02/24/25 00:00 02/24/25 00:00 Temperature 97.8 F Pulse Rate 105 H 111 H 108 H Respiratory Rate 16 18 Blood Pressure 163/70 H Pulse Oximetry 96 Oxygen Delivery Oxygen Flow Rate 02/24/25 02:00 02/24/25 04:00 02/24/25 07:14 Temperature Pulse Rate 112 H 107 H Respiratory Rate Blood Pressure Pulse Oximetry 94 Oxygen Delivery Nasal Cannula Oxygen Flow Rate 1 02/24/25 07:14 02/24/25 07:22 02/24/25 08:00 Temperature 98.7 F Pulse Rate 108 H 108 H 115 H Respiratory Rate 16 16 22 H Blood Pressure 122/66 Pulse Oximetry 92 Oxygen Delivery Oxygen Flow Rate 02/24/25 08:00 02/24/25 08:00 Temperature Pulse Rate 108 H Respiratory Rate Blood Pressure Pulse Oximetry 96 Oxygen Delivery Nasal Cannula Oxygen Flow Rate 1 Intake/Output Intake/Output: Intake & Output 02/21/25 02/22/25 02/23/25 02/24/25 23:59 23:59 23:59 23:59 Intake Total 2650 1480 Output Total 150 1700 400 Balance 2500 -220 -400 Meds/Results Medications: Active Medications Generic Name Dose Route Start Last Admin Trade Name Freq PRN Reason Stop Dose Admin Acetaminophen 650 mg 02/22/25 19:31 Acetaminophen 325 Mg Tablet PO Q4H PRN Mild Pain (1-3) or Fever Aspirin 81 mg 02/23/25 09:00 02/24/25 08:41 Aspirin 81 Mg Enteric Tablet PO 81 mg DAILY SLIME Administration Doxycycline Hyclate 100 mg 02/23/25 09:00 02/24/25 08:41 Doxycycline Hyclate 100 Mg Tablet PO 02/25/25 09:01 100 mg Q12HR SLIME Administration Enoxaparin Sodium 40 mg 02/23/25 09:00 02/24/25 08:52 Enoxaparin 40 Mg/0.4 Ml Syringe SUB-Q 40 mg DAILY SLIME Administration Ferrous Sulfate 325 mg 02/23/25 09:00 02/24/25 08:42 Ferrous Sulfate [address] PO 325 mg DAILY SLIME Administration Furosemide 20 mg 02/23/25 09:00 02/24/25 08:41 Furosemide 20 Mg Tablet PO 20 mg QAM SLIME Administration Cefepime HCl 2 gm in 50 mls @ 100 mls/hr 02/23/25 01:25 02/24/25 05:14 Maxipime 2 Gm/Ns 50 Ml IVPB 100 mls/hr Q8HR SLIME Administration Vancomycin HCl 1,500 mg in 500 mls @ 250 mls/hr 02/24/25 06:00 02/24/25 05:46 Vancomycin 1,500 Mg/Ns 500 Ml IVPB 250 mls/hr Q12H SLIME Administration Levalbuterol HCl 1.25 mg 02/23/25 02:00 02/24/25 07:14 Levalbuterol Neb 1.25 Mg/3 Ml INHALATION 1.25 mg Q6HRT SLIME Administration Multivitamins Therapeutic 1 tablet 02/23/25 09:00 02/24/25 08:41 Multivitamins Therapeutic Tab (*Bkc) PO 1 tablet DAILY SLIME Administration Perflutren Lipid Microsphere 0 ml 02/22/25 19:31 Perflutren Lipid Microspheres 1.5 Ml Vial Diluted To 10 Ml Total Volume IV PUSH 02/25/25 19:32 ONCE PRN adequate visualization Protocol Radiology Results: ITS Impressions Chest CTA 02/22/25 15:57 IMPRESSION: 1. No pulmonary embolism. 2. No acute cardiopulmonary pathology. 3. Mediastinal lymphadenopathy. Clinical evaluation advised. 4. Atelectatic area in the middle lobe adjacent to the oblique fissure. 5. Fat infiltration of the liver. 6. Sclerotic changes in T12 and L1 unchanged from previous examination Abdomen/Pelvis CT 02/22/25 18:23 IMPRESSION: No acute findings within the abdomen or pelvis to account for patient's presentation, as detailed above. Chest X-Ray 02/23/25 06:20 Impression: Minimal haziness right lung base. Correlate for atelectasis versus pneumonia. Labs Labs: Laboratory Results - last 24 hr 02/24/25 04:18 WBC 11.0 H RBC 3.62 L Hgb 9.3 L Hct 33.6 L MCV 92.8 MCH 25.7 L MCHC 27.7 L RDW 24.0 H Plt Count 245 MPV 9.9 Sodium 140 Potassium 3.5 Chloride 104 Carbon Dioxide 29 Anion Gap 7 BUN 15 Creatinine 0.54 L Estim Creat Clear Calc 65 Estimated GFR > 60 Glucose 190 H Calcium 8.2 L Total Bilirubin 0.3 AST 32 ALT 29 Alkaline Phosphatase 87 Total Protein 6.0 L Albumin 3.3 L Vancomycin Trough 7.5 L Hospitalist MIPS Advance Care Plan I have confirmed that the patient's Advanced Care Plan is present, code status is documented, or surrogate decision maker is listed in patient medical record.: Yes Medication Reconciliation I have utilized all available resources to obtain, update and review the patients current medications (includes all prescriptions, OTC, herbals, cannabis, and nutritional supplements).: Yes
[2025-02-24 13:41] LABS: MRSA (PCR) NOT DETECTED (NOT DETECTE)
[2025-02-24] MEDS: FUROSEMIDE INJ 40 MG/4 ML VIAL 20 MG IV PUSH (14:45)
[2025-02-25] VITALS (13 sets, daily range): BP systolic 101–109; BP diastolic 66; PULSE 94–115; RESP 18–20; TEMP 36.4–37; O2SAT 87–98
[2025-02-25] MEDS: LEVALBUTEROL NEB 1.25 MG/3 ML INHALATION ×2 (02:20→08:39)
[2025-02-25 04:18] LABS: Hematocrit 34.2 % (37.0-47.0); Hemoglobin 9.5 g/dL (12.0-15.0); Mean Corpuscular HGB Conc 27.8 g/dl (32-36); Mean Corpuscular Volume 93.7 fl (80-100); Mean Platelet Volume 10.4 fl (7.4-10.4); Platelet Count Result 232 k/mm3 (150-375); Red Blood Count 3.65 M/mm3 (4.2-5.4); Red Cell Distribution Width 23.6 % (11.5-14.5)
[2025-02-25 04:35] LABS: Alanine Aminotransferase 30 U/L (6-35); Albumin Level 3.4 g/dL (3.5-5.1); Alkaline Phosphatase 91 U/L (38-126); Anion Gap 6 mmol/L (4-12); Aspartate Amino Transferase 37 U/L (14-36); Bilirubin,Total 0.3 mg/dL (0.2-1.3); Blood Urea Nitrogen 17 mg/dL (7-17); Calcium 8.3 mg/dL (8.4-10.2); Carbon Dioxide 31 mmol/L (22-30); Chloride 103 mmol/L (98-107); Estimated CRCL calculation 71 ml/min; Estimated Glomerular Filt Rate > 60; Glucose 136 mg/dL (65-110); Potassium 3.6 mmol/L (3.4-5.0); Sodium 140 mmol/L (137-145)
[2025-02-25] MEDS: CEFEPIME 2 GM/NS 50 ML 2 GM/50 ML BAG IVPB (05:05)
[2025-02-25] MEDS: IBUPROFEN 600 MG TABLET PO (05:26)
[2025-02-25] MEDS: ASPIRIN 81 MG ENTERIC TABLET PO (09:12)
[2025-02-25] MEDS: MULTIVITAMINS THERAPEUTIC TAB (*BKC) 1 TABLET PO (09:12)
[2025-02-25] MEDS: DOXYCYCLINE HYCLATE 100 MG TABLET PO (09:12)
[2025-02-25] MEDS: FUROSEMIDE 20 MG TABLET PO (09:13)
[2025-02-25] MEDS: ENOXAPARIN 40 MG/0.4 ML SYRINGE SUB-Q (09:13)
[2025-02-25] MEDS: FERROUS SULFATE 325 MG TABLET DR PO (09:13)
--- NOTE | 2025-02-25 11:24 | P.DS_ITS ---
DS: Admitting Diagnosis Discharge Date 0 02/25/2025 Admitting Diagnosis Shortness of breath DS: Discharge Diagnosis Discharge Diagnosis (1) Essential hypertension: Code(s): I10 - Essential (primary) hypertension Status: Acute (2) Diastolic CHF: Code(s): I50.30 - Unspecified diastolic (congestive) heart failure Status: Acute (3) Tachycardia: Code(s): R00.0 - Tachycardia, unspecified Status: Acute (4) Acute respiratory failure with hypoxemia: Code(s): J96.01 - Acute respiratory failure with hypoxia Status: Acute Plan PNA Vital signs improved and stable RSV COVID flu negative Started on doxycycline, cefepime and dc vancomycin Will deescalate antibiotics once MRSA and blood culture results monitor cultures MRSA pending encourage oral intake HTN Currently does not require medication DS: Summary Hospital Course Hospital Course: 74-year-old female with a history of prior tobacco dependence quit in 2022, COPD, diastolic congestive heart failure, hypertension who presents to [facility] on 02/22/2025 with a complaint of shortness of breath for a few days. The patient does not know what triggered it however she reports it is hard to catch her breath and is worsened by exertion. She has had no chest pain nausea or vomiting. Many family members have had strep throat. On EMS arrival she was 70% on room air requiring nasal cannula at 2 liters/minute. She had sinus tachycardia. Reports a remote history of PE and she completed anticoagulation. 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 She has had some nausea and weakness since starting the inhaler and is worried about the side effects. Further ER evaluation demonstrated leukocytosis 16.7, ABG with a normal pH and pCO2 46, O2 saturation adequate on 2-4 L of oxygen via nasal cannula, negative lactic acid, mildly elevated BNP, negative troponin, negative procalcitonin. Swab for strep panel negative, quad viral screen negative. A chest CTA did not demonstrate a PE. CT abdomen pelvis did not demonstrate any etiology as well. During the hospitalization patient was rib treated for following pneumonia which improved. Patient will be discharged with Augmentin and doxycycline. Time Spent with Patient Time attestation: Total time spent providing and/or coordinating discharge services: Exam Const: General: comfortable and no acute distress HENMT: Mouth: Yes moist mucous membranes Eyes: Pupils: Equal, round and reactive pupils present Neck: Neck: supple Resp: Effort & Inspection: normal respiratory effort Other: Rhonchi right lower and right mid lung bernal. No wheezing. Cardio: Rate: regular rate Rhythm: regular rhythm Neuro: Cranial nerves: Yes Equal, round and reactive pupils present Motor exam (neuro): 5/5 motor strength present throughout Sensory Exam: normal sensation Extrem: General: no edema DS: Data Data Completed and Pending Labs on day of discharge: Labs from last 24 hours 02/25/25 02/24/25 03:57 12:21 WBC 8.0 RBC 3.65 L Hgb 9.5 L Hct 34.2 L MCV 93.7 MCH 26.0 MCHC 27.8 L RDW 23.6 H Plt Count 232 MPV 10.4 Sodium 140 Potassium 3.6 Chloride 103 Carbon Dioxide 31 H Anion Gap 6 BUN 17 Creatinine 0.49 L Estim Creat Clear Calc 71 Estimated GFR > 60 Glucose 136 H Calcium 8.3 L Total Bilirubin 0.3 AST 37 H ALT 30 Alkaline Phosphatase 91 Total Protein 6.0 L Albumin 3.4 L Nasal MRSA (PCR) Not detected Preliminary micro results at discharge 02/22/25 15:04 Blood Culture - Preliminary Blood 02/22/25 15:05 Blood Culture - Preliminary Blood Imaging Radiologist's impression: ITS Impressions Chest CTA 02/22/25 15:57 IMPRESSION: 1. No pulmonary embolism. 2. No acute cardiopulmonary pathology. 3. Mediastinal lymphadenopathy. Clinical evaluation advised. 4. Atelectatic area in the middle lobe adjacent to the oblique fissure. 5. Fat infiltration of the liver. 6. Sclerotic changes in T12 and L1 unchanged from previous examination Chest X-Ray 02/22/25 16:12 IMPRESSION: Mild pulmonary vascular congestion, without focal infiltrate or effusion. Abdomen/Pelvis CT 02/22/25 18:23 IMPRESSION: No acute findings within the abdomen or pelvis to account for patient's presentation, as detailed above. Chest X-Ray 02/23/25 06:20 Impression: Minimal haziness right lung base. Correlate for atelectasis versus pneumonia. Discharge Plan Discharge Attending physician on discharge: Cm Arroyo Discharging Clinician: Cm Arroyo Anticipated Discharge Date/Time: 02/25/25 11:26 Patient Disposition: Home Activity: as tolerated Diet: heart healthy Discharge Instructions: Please complete the antibiotic course In regards to home oxygen please follow-up with your PCP and re-evaluate in 2-3 months if home oxygen needs to be continued. Keep O2 saturation above 88%. If O2 saturation falls below 88 seek immediate medical care Check blood pressure 1 to 2 times a day. Record and bring into your doctor for review. Call your doctor if your blood pressure is greater than 180/110 or less than 90/45. Walk with cane or other assist device. Take precautions to avoid falls. Rise slowly from a lying or sitting position. Pause before standing or walking. Contact your doctor or call 911 and come to the Emergency Room if you have any type of trauma, lightheadedness with standing or other worrisome symptoms. Avoid NSAIDs (ibuprofen, naproxen, Aleve). Tylenol is safe to take. Follow-up with your primary care provider in 1-2 weeks. Please call for appointment. Follow-up with Pulomonolgy in 2-4 weeks. Please call for an appointment. Thank you for using [facility] for your health care needs. Patient Instructions: Antibiotic Form, Heart Failure (GEN) Patient Language: Belarusian Stand Alone Forms: General Discharge Information Follow-up/Referrals: Michela Gustafson APRN [Primary Care Provider] - Saleem Fung MD [Physician] - Discharge Medications: New doxycycline hyclate 100 mg Tablet 100 mg PO Q12HR Qty: 6 0RF amoxicillin-pot clavulanate 875-125 mg tablet 1 tablet PO Q12H Qty: 8 0RF Rx Instructions: Please complete the course on 02/28 Continued multivitamin [Multiple Vitamins] Tablet 1 tablet PO DAILY aspirin 81 mg tablet,delayed release (DR/EC) 81 mg PO DAILY biotin 10,000 mcg capsule 10,000 mcg PO DAILY furosemide [Lasix] 20 mg tablet 20 mg PO QAM Qty: 90 3RF Breztri Aerosphere 160-9-4.8 mcg/actuation HFA aerosol inhaler 2 inh inhalation BID Qty: 10.7 6RF Patient Comments: patient stopped taking yesterday, concerned that it could be causing current symptoms ferrous sulfate 325 mg (65 mg iron) tablet 325 mg PO DAILY Date of admission: 02/22/25 19:31 Primary Care Provider: Michela Gustafson Admitting Provider: Bety Dia Attending physician on admission: Bety Dia Condition: Stable
[2025-02-25] MEDS: AMOXICILLIN/CLAVULANATE K 875-125 MG TAB 1 TABLET PO (11:49)
--- NOTE | 2025-02-25 12:10 | PCRCNOTE ---
Home o2 requires at 1 liter rest and activity. Arranged o2 with [facility]. Pt wants a POC, they will deliver once she D/C home. Tank in room for transport home.
[2025-02-25 18:04] LABS: Pneumococcal Antigen Urine NOT DETECTED
[2025-02-25 18:43] LABS: Legionella pneumophila Ag Ur NOT DETECTED
[2025-02-26 11:49] LABS: Adenovirus DNA Not Detected (Not Detected); Chlamydophila pneumoniae Not Detected (Not Detected); Coronavirus 229E Not Detected (Not Detected); Coronavirus HKU1 Not Detected (Not Detected); Coronavirus NL63 Not Detected (Not Detected); Coronavirus OC43 Not Detected (Not Detected); Human Metapneumovirus Detected (Not Detected); Human Parainfluenza Virus 1 Not Detected (Not Detected); Human Parainfluenza Virus 2 Not Detected (Not Detected); Human Parainfluenza Virus 3 Not Detected (Not Detected); Human Parainfluenza Virus 4 Not Detected (Not Detected); Human RSV B Not Detected (Not Detected); Influenza A Not Detected (Not Detected); Influenza B Not Detected (Not Detected); Mycoplasma pneumoniae Not Detected (Not Detected); Rhinovirus/Enterovirus Not Detected (Not Detected)
== END 2025-02-25 14:55 | disposition home or self-care (01) | DRG 193 ==
LOC: ANHED 15:04 → ANHIMU 20:12
PROVIDERS: Emergency Medicine; Admitting Provider General Practice; Emergency Provider Student in an Organized Health Care Education/Training Program; PCP Nurse Practitioner Adult Health; Visit Provider General Practice
DX: J18.9 Pneumonia, unspecified organism (principal); J96.01 Acute respiratory failure with hypoxia; I50.32 Chronic diastolic (congestive) heart failure; I11.0 Hypertensive heart disease with heart failure; J44.9 Chronic obstructive pulmonary disease, unspecified; Z20.822 Contact with and (suspected) exposure to COVID-19; Z79.82 Long term (current) use of aspirin; Z86.711 Personal history of pulmonary embolism; Z87.891 Personal history of nicotine dependence
CPT/HCPCS: 36415; 36600; 71045; 71275; 74177; 80053; 80202; 81001; 82375; 82805; 83050; 83605; 83735; 83880; 84145; 84484; 85018; 85025; 85027; 85610; 85730; 86140; 87040; 87449; 87633; 87637; 87641; 87651; 87899; 93005; 93306; 94618; 94640; 96365; 96366; 96367; 96375; 99291; A9270; J0360; J0456; J0692; J1650; J1938; J3370; J7030; J7120; Q9967

== ENCOUNTER 2025-03-13 13:00 | Inpatient (IN) | payer OTHER, SELFPAY ==
[2025-03-13] VITALS (37 sets, daily range): BP systolic 83–194; BP diastolic 51–82; PULSE 90–135; RESP 16–42; TEMP 36.7–37.3; O2SAT 84–99; BMI 30.3
--- NOTE | ~2025-03-13 | CT_ITS ---
CT abdomen pelvis w con Ordering provider: Eyal Paris MD History: 74 years Female with . pelvic pain, n/v, UTI . Comparison: February 22, 2025 Technique: CT abdomen and pelvis with IV and without oral contrast. Automated exposure control and it erative reconstruction technique were employed. The dose-length product was 478.38 mGy-cm. 100 mL Omn ipaque 350 was given IV. Findings: VISUALIZED LOWER CHEST: Subsegmental atelectatic changes are seen bilaterally. UPPER ABDOMINAL ORGANS: Liver: Fat infiltration. Tiny hypodensity seen within normal limits and may be a small cyst. Gallbladder: Distended with no stones. Spleen: Normal. Stomach/duodenum: Sliding hiatus hernia. Pancreas: Normal. Adrenals: Normal. Kidneys: Right hydronephrotic changes. Slightly dilated left renal pelvis. Dilated right ureter is se en with surrounding fat stranding. Fat stranding also seen around the right kidney. No stones seen in the ureters. PELVIC ORGANS: The bladder shows slightly thickened wall with surrounding fat stranding suggestive of cystitis. BOWEL AND MESENTERY: Colon: No evidence of diverticulitis.. Normal appendix. Hyperdense area seen in the appendix. Small Bowel: Normal. No obstruction. Peritoneum/mesentery: No free air or free fluid. No mesenteric lymphadenopathy. RETROPERITONEUM: Moderate atheromatous disease of the abdominal aorta. No retroperitoneal lymphaden opathy. MUSCULOSKELETAL: Superficial soft tissues: The superficial soft tissues are normal. Bones: Sclerotic changes in T12 and L1 again demonstrated with no change from previous examination. M inimal anterolisthesis at the level of L4-L5. Age appropriate degenerative changes of the spine. Bila teral hip severe osteoarthritic changes more on the left side. IMPRESSION: 1. Right hydronephrotic changes with dilated right ureter and surrounding fat stranding suggestive o f infection. Minimal fullness of the left renal pelvis. 2. Slightly thickened wall with surrounding fat stranding suggestive of cystitis. 3. Fat infiltration of the liver. 4. Distended gallbladder with no stones. 5. Sliding hiatus hernia. 6. Sclerotic changes of T12 and L1 unchanged from previous examination. Reviewed, dictated and finalized at location A. IMPRESSION: 1. Right hydronephrotic changes with dilated right ureter and surrounding fat stranding suggestive of infection. Minimal fullness of the left renal pelvis. 2. Slightly thickened wall with surrounding fat stranding suggestive of cystit is. 3. Fat infiltration of the liver. 4. Distended gallbladder with no stones. 5. Sliding hiatus hernia. 6. Sclerotic changes of T12 and L1 unchanged from previous examination.
--- OUTSIDE RECORDS SUMMARY | 2025-03-13 13:02 | XMS_ITS | Clinical Summary ---
Author Organization [facility] Address [address] [place] [address] Care Team Providers Care Soap Worker Name Role Phone Unavailable Primary Care Provider Unavailabl e Allergies No known active allergies Medications Albuterol [...] tablet by mouth daily. Active COMPRESSION STOCKINGS, DME,Indications: Edema, unspecified type Apply 1 Package topically daily. 2 Package 3 Active ANORO ELLIPTA 62.5-25 MCG/ACT inhalerIndicatio ns:Centrilobular emphysema (CMS/HCC HHS/HCC) INHALE 1 PUFF BY MOUTH DAILY FOR 1 MONTH Strength: 62.5-25 MCG/ACT 60 each 3 3 Active buPROPion XL (WELLBUTRIN XL) 150 MG 24 hr tabletIndication s:Tobacco use TAKE 1 TABLET BY MOUTH EVERY DAY 90 tablet 1 3 Active furosemide (LASIX) 40 MG tabletIndication s:Primary hypertension TAKE 1/2 TABLET BY MOUTH EVERY DAY 45 tablet 1 4 Active doxycycline hyclate (VIBRAMYCIN) 100 MG capsuleIndicatio ns:02/25/25 per [facility] md instructions Take 1 capsule (100 mg total) by mouth 2 (two) times daily. Indications: 02/25/25 per [facility] instructions #6 tabs Active amoxicillin-clav ulanate (AUGMENTIN) 875-125 MG tabletIndication s:02/25/25 per [facility] instructions Take 1 tablet (875 mg total) by mouth 2 (two) times daily. Indications: 02/25/25 per [facility] instructions #8 Active aspirin EC 81 MG tablet Take 1 tablet (81 mg total) by mouth daily. Active biotin 28415 MCG tablet Take 0.5 tablets (5,000 mcg total) by mouth daily. Active budesonide-glyco pyrrolate-formot dee (BREZTRI) 160-9-4.8 MCG/ACT inhaler Inhale 2 puffs into the lungs 2 (two) times daily. Active ferrous sulfate, 65 mg elemental, 325 (65 FE) MG tablet Take 1 tablet (325 mg total) by mouth daily with breakfast. Active Active Problems Problem Noted Date Diagnosed Date Aortic calcification 04/22/2023 Overview (04/22/2023): Noted by me on CXR dated 11/07/2022 Chronic fatigue 02/06/2023 Edema leg 02/06/2023 Chronic respiratory failure with hypoxia and hypercapnia ([facility]) 11/26/2022 COPD (chronic obstructive pu lmonary disease) ([facility]) 11/26/2022 Diastolic CHF ([facility]) 11/26/2022 Intracranial atherosclerosis 11/26/2022 Iron deficiency anemia, unspecified 05/16/2022 Pulmonary embolism without a cute cor pulmonale ([facility]) 02/13/2022 Essential hypertension 12/10/2016 Resolved Problems Problem Noted Date Diagnosed Date Resolved Date Elevated troponin 02/06/2023 04/22/2023 Tobacco use 02/06/2023 04/22/2023 Care Management 12/10/2022 10/15/2023 Microcytic anemia 01/21/2022 04/22/2023 Tobacco dependence 01/13/2019 3 Encounters Date Type Department Care Team Description 02/28/2025 Scan [facility] HEALTH INFO SRVCS Scanned, Doc Med Group 02/28/2025 Patient Outreach [facility] Family & Internal Medicine [address] [phone] Lucy Beaulieu RN Error 02/28/2025 Patient Outreach [facility] Family & Internal Medicine [address] [phone] Lucy Beaulieu RN TCM ([facility] 02/22-02/25: NO LONGER [facility] PATIENT) 02/24/2025 Patient Outreach [facility] Family & Internal Medicine [place] [address] [place] [address] Lucy Beaulieu RN Hospital Follow Up ([facility] admission notification) 02/22/2025 Scan HEALTH INFO SRVCS Scanned, Doc Med Group from Last 3 Months Immunizations Immunization Administration Dates Next Due Pneumococcal [...] money to buy more. Never true 12/31/19 Within the past 12 months, t he [...] place to sleep or slept in a correction (including now)? No 12/31/2022 Comments No Sex [...] - 2023-2 5 season) 2024 PHQ-2 (Physician [place]) 11/03/2024 DTaP, Tdap and Td Vaccines ( [...] below: Lifestyle On track(2022 1:47 PM CDT) No Lucy Beaulieu, RN Note: .Interventions for COPD include: 1) [...] below: Lifestyle On track(2022 1:47 PM CDT) No Lucy Beaulieu RN Note: .Interventions for CHF include: 1) [...] 171 <200 MG/DL 05/15/2022 3:40 PM CDT [facility] TRIGLYCERIDES 117 <150 MG/DL 05/15/2022 3:40 PM CDT [facility] HDL 47 >40 MG/DL 05/15/2022 3:40 PM CDT [facility] LDL-C 101(H) <100 MG/DL 05/15/2022 3:40 PM CDT [facility] VLDL CALCULATION 23 5 - 28 MG/DL 05/15/2022 3:40 PM CDT [facility] CHOL/HDL RATIO 3.6 0.0 - 4.0 05/15/2022 3:40 PM CDT [facility] LDL/HDL 2.1 0.41 - 2.13 05/15/2022 3:40 PM CDT [facility] NON HDL CHOLESTEROL 124 <140 MG/DL 05/15/2022 3:40 PM CDT [facility] 05/15/2022 10:4 4 AM CDT us Shaan Mayfield MD LABORATORY Final Result [facility] [address] [facility] [place] [address], [place] [phone] from Last 3 Months or Most Recently Relevant to Health Maintenance Insurance [employer]
[2025-03-13 13:30] LABS: Basophils Absolute Auto 0.1 K/mm3 (0.0-0.1); Basophils Percent Auto 0.3 % (0.2-1.2); Hematocrit 38.7 % (37.0-47.0); Hemoglobin 10.9 g/dL (12.0-15.0); Immature Granulocyte Percent A 0.9 % (0-0.5); Lymphocytes Percent Auto 2.6 % (18.3-44.2); Mean Corpuscular HGB Conc 28.2 g/dl (32-36); Mean Corpuscular Hemoglobin 26.7 pg (26-34); Mean Corpuscular Volume 94.9 fl (80-100); Monocytes Absolute Auto 1.2 K/mm3 (0.1-0.6); Monocytes Percent Auto 5.1 % (2.6-8.5); Neutrophils Absolute Auto 21.4 K/mm3 (1.3-6.7); Neutrophils Percent Auto 91.1 % (45.5-73.1); Platelet Count Result 484 k/mm3 (150-375); Red Blood Count 4.08 M/mm3 (4.2-5.4); Red Cell Distribution Width 21.6 % (11.5-14.5); White Blood Count 23.5 K/mm3 (4.5-10.0)
--- OUTSIDE RECORDS SUMMARY | 2025-03-13 13:30 | XMS_ITS | Clinical Summary ---
Author Organization [facility] Address [address] [place] [address] Care Team Providers Care Service Shop Foreman Name Role Phone Unavailable Primary Care Provider [...] (VIBRAMYCIN) 100 MG capsuleIndicatio ns:02/25/25 per Ele[facility] la instructions Take 1 capsule (100 mg total) by mouth 2 (two) times daily. Indications: 02/25/25 per [facility] instructions #6 tabs Active amoxicillin-clav ulanate (AUGMENTIN) 875-125 MG tabletIndication s:02/25/25 per [facility] instructions Take 1 tablet (875 mg total) by mouth 2 (two) times daily. Indications: 02/25/25 per [facility] instructions #8 Active aspirin EC 81 MG tablet Take 1 tablet (81 mg total) by mouth daily. Active biotin 06376 MCG tablet Take 0.5 tablets (5,000 mcg [...] Chronic respiratory failure with hypoxia and hypercapnia ([facility]) 11/26/2022 COPD (chronic obstructive pu lmonary disease) ([facility]) 11/26/2022 Diastolic CHF ([facility]) 11/26/2022 Intracranial atherosclerosis 11/26/2022 Iron deficiency anemia, unspecified 05/16/2022 Pulmonary embolism without a cute cor pulmonale ([facility]) 02/13/2022 Essential hypertension 12/10/2016 Resolved Problems Problem Noted Date Diagnosed Date Resolved Date Elevated troponin 02/06/2023 04/22/2023 Tobacco use 02/06/2023 04/22/2023 Care Management 12/10/2022 10/15/2023 Microcytic anemia 01/21/2022 04/22/2023 Tobacco dependence 01/13/2019 3 Encounters Date Type Department Care Team Description 02/28/2025 Scan [facility] HEALTH INFO SRVCS Scanned, Doc Med Group 02/28/2025 Patient Outreach [facility] Family & Internal Medicine [address] [phone] Lucy Beaulieu RN Error 02/28/2025 Patient Outreach [facility] Family & Internal Medicine [address] [phone] Lucy Beaulieu RN TCM ([facility] 02/22-02/25: NO LONGER [facility] PATIENT) 02/24/2025 Patient Outreach [facility] Family & Internal Medicine [place] [address] [place] [address] Lucy Beaulieu RN Hospital Follow Up ([facility] admission notification) 02/22/2025 Scan HEALTH INFO SRVCS [...] place to sleep or slept in a mcfp (including now)? No 12/31/2022 Comments No Sex [...] - 2023-2 5 season) 2024 PHQ-2 (Physician [place]) 11/03/2024 DTaP, Tdap and Td Vaccines ( [...] 171 <200 MG/DL 05/15/2022 3:40 PM CDT [facility] TRIGLYCERIDES 117 <150 MG/DL 05/15/2022 3:40 PM CDT [facility] HDL 47 >40 MG/DL 05/15/2022 3:40 PM CDT [facility] LDL-C 101(H) <100 MG/DL 05/15/2022 3:40 PM CDT [facility] VLDL CALCULATION 23 5 - 28 MG/DL 05/15/2022 3:40 PM CDT [facility] CHOL/HDL RATIO 3.6 0.0 - 4.0 05/15/2022 3:40 PM CDT [facility] LDL/HDL 2.1 0.41 - 2.13 05/15/2022 3:40 PM CDT [facility] NON HDL CHOLESTEROL 124 <140 MG/DL 05/15/2022 3:40 PM CDT [facility] 05/15/2022 10:4 4 AM CDT us Shaan Mayfield MD LABORATORY Final Result [facility] [address] [facility] [place] [address], [place] [phone] from Last 3 Months or Most Recently Relevant to Health Maintenance Insurance [employer]
[2025-03-13 13:43] LABS: Alanine Aminotransferase 32 U/L (6-35); Albumin Level 4.4 g/dL (3.5-5.1); Alkaline Phosphatase 131 U/L (38-126); Anion Gap 11 mmol/L (4-12); Aspartate Amino Transferase 38 U/L (14-36); Bilirubin,Total 0.5 mg/dL (0.2-1.3); Blood Urea Nitrogen 20 mg/dL (7-17); Carbon Dioxide 28 mmol/L (22-30); Chloride 101 mmol/L (98-107); Estimated CRCL calculation 51 ml/min; Estimated Glomerular Filt Rate > 60; Glucose 184 mg/dL (65-110); Potassium 4.1 mmol/L (3.4-5.0); Sodium 140 mmol/L (137-145)
[2025-03-13] MEDS: MORPHINE SULFATE (*CRX) 4 MG/ML INJ IV PUSH (14:08)
[2025-03-13] MEDS: LACTATED RINGERS 1,000 ML 999 ML IV CONT ×2 (14:08→17:00)
[2025-03-13] MEDS: ONDANSETRON INJ 4 MG/2 ML VIAL IV PUSH (14:08)
--- NOTE | 2025-03-13 14:39 | ED_ITS ---
HPI - Female Genitourinary General Chief complaint: Urogenital-Female Stated complaint: N/V-blood in urine. Pain with urination Time Seen by Provider: 03/13/25 13:11 History of Present Illness HPI Narrative: 74-year-old female with a past medical history including COPD, diastolic congestive heart failure, hypertension, recent admission to the hospital with sepsis from pneumonia. Patient presents to the emergency room with chief complaint of lower abdominal pain, burning with urination and dysuria as well as blood in the urine. She did have a Goldstein catheter during her hospital visits she states but that was removed prior to discharge. Recently had titrated off of oxygen therapy that she was discharged with. Endorses nausea and vomiting as well as abdominal pain but no fever, chills, chest pain shortness a breath. Was otherwise in her normal state of health upon discharge. Symptoms started yesterday and progressively worsened this morning so she came to the ER. Related Data Home Medications ?Medication ?Instructions ?Recorded ?Confirmed ?Last Taken ?Type aspirin 81 mg tablet,delayed 81 mg PO DAILY 02/07/25 02/22/25 02/21/25 History release biotin 10,000 mcg capsule 10,000 mcg PO DAILY 02/07/25 02/22/25 02/21/25 History multivitamin (Multiple Vitamins 1 tablet PO DAILY 02/07/25 02/22/25 02/21/25 History tablet) Allergies Allergy/AdvReac Type Severity Reaction Status Date / Time latex Allergy Unknown Rash Verified 03/13/25 13:01 apixaban (From Eliquis) AdvReac Unknown Bleeding Verified 03/13/25 13:01 Review of Systems 2 Review of Systems: As reviewed above in HPI [facility] Past Medical History Medical History Tobacco dependence Hypertension Tobacco dependence Pneumonia due to COVID-19 virus (12/2021) Pulmonary embolism without acute cor pulmonale (12/2021) Surgical History Surgical History History of tubal ligation History of eye surgery Family History Family History Father Family history of malignant neoplasm Patient's father is Sibling Family history of heart disease in male family member before age 55 Diabetes mellitus Family history of malignant neoplasm Heart disease Mother Family history of heart disease in male family member before age 55 Heart disease Patient's mother is Sibling Heart disease Cancer Hypertension Grandparent Diabetes mellitus Son Cancer Social History Social History Social History: Surrogate medical decision maker: Taye Mcgill, spouse. Code status: Full code. Smoking packs per day: 1 Smoking cigarettes per day: 20.0 Years smoked: 61 Smoking pack-years: 61.00 Smoking status: Former smoker Tobacco type: cigarettes Second hand tobacco smoke exposure: Yes Smoking end date: 11/06/22 Alcohol intake: current Drinks per week: 1 Alcohol use details: 1-4 a week Substance use: never Substance use type: does not use Do You Feel Safe in your Home?: Yes Lack of Transportation: No Lack of Food: Never True Current Housing: I Have Housing Concerned About Future Housing: No Difficulty Paying Gas/Electric Bills: No Difficulty Paying for Meds: No Currently Unemployed: No Education: Associate Degree Difficulty w/ Childcare or Family Care: No Living arrangements: with family Occupation/Education: retired Spiritual care concerns: No Agree to blood products: Yes Exam 2 Narrative: GENERAL: Uncomfortable appearing but not any acute distress HEAD: [Normocephalic, atraumatic.] EYES: [PERRLA and EOMI.] ENT: Nares clear, no rhinorrhea or epistaxis. Mucous membranes moist. NECK: Supple. CHEST: [Clear to auscultation. No respiratory distress.] HEART: [Regular rate and rhythm]. No murmur heard. [Normal peripheral pulses.] ABDOMEN: [Soft, nondistended], [tender in the lower abdomen], [No rigidity or guarding] EXTREMITIES: Normal range of motion. [No edema.] SKIN: Warm, dry, no rash. NEURO: [No focal deficits]. Alert and oriented [x3.] PSYCH: [Normal mood and affect.] Course Vital Signs Vital signs: Vital Signs Pulse Oximetry 93 03/13/25 13:06 Temperature 37.1 C 03/13/25 13:09 Pulse Rate 127 H 03/13/25 17:00 Respiratory Rate 20 03/13/25 17:00 Blood Pressure 121/82 03/13/25 17:00 Pulse Oximetry 97 03/13/25 17:00 Oxygen Delivery Nasal Cannula 03/13/25 14:42 Oxygen Flow Rate 1 03/13/25 14:42 MDM - Female Genitourinary MDM Narrative Medical decision making narrative: 74-year-old female with history of COPD, CHF diastolic dysfunction, hypertension, recent admission to the hospital for pneumonia. Patient was discharged home with oxygen that she was titrating herself down from and no longer using. Today she complains of lower abdominal pain, nausea, vomiting and burning with urination with blood in her urine. Symptoms started yesterday and progressively worsened today. She is uncomfortable appearing and tachycardic with a pulse in the 120s, afebrile, saturating 92% on room air. Normal blood pressure. Considerations presently are for urinary tract infection, pyelonephritis, intra-abdominal infection, cystitis, appendicitis, diverticulitis. Low suspicion for recurrence of her pneumonia as a source for nausea and vomiting. She was given Zofran and morphine as well as a fluid bolus. CBC, CMP, magnesium, urinalysis and a CT of the abdomen pelvis was ordered. Her initial white count came back significant elevated which raises suspicion for intra-abdominal infection. CT is pending. Blood cultures and lactic acid were drawn. Patient's lactate is elevated and she has a CT finding concerning for right- sided pyelonephritis but no obstructing kidney stones are identified. Cefepime initiated for pyelonephritis. CT also shows some thickening of the bladder turner consistent with cystitis, fatty infiltration liver, gallbladder distention but no stones, sliding hiatal hernia. Workup shows a leukocytosis of 23.5k, hemoglobin of 10.9 and stable. Kidney function is normal, slightly hyperglycemic but chronic, normal electrolytes, normal LFTs. Urinalysis has blood and white cells consistent with urinary tract infection and her findings of pyelonephritis. Urine culture sent. Blood cultures sent. Patient has a history of heart failure so we will be judicious with her fluid resuscitation and evaluated after gentle boluses rather than 30 cc/kg upper front. He was given 1 L and re-evaluated and a 2nd L prior to admission. Blood pressure is stable 121/82, remains tachycardic and afebrile. Placed on her home oxygen dose for comfort. Patient re-evaluated after interventions and feeling improved no longer nauseous or vomiting. Abdominal pain is improved. She remains tachycardic on reassessments and EKG obtained showing what appears to be sinus tachycardia, does not appear to be irregular heart rhythm and there is right bundle branch block, similar in appearance to prior EKGs. Discussed the case with the hospitalist team currently being covered by the midlevel provider Mary Ann who accepted the patient to the IMU for further evaluation and treatment of her pyelonephritis and sepsis. Medical Records Attestation: I reviewed the patient's medical records. Lab Data Attestation: I reviewed the patient's lab results. 03/13/25 13:24 03/13/25 13:24 Labs: Lab Results 03/13/25 03/13/25 03/13/25 Range/Units 13:24 15:25 15:40 WBC 23.5 H (4.5-10.0) K/mm3 RBC 4.08 L (4.2-5.4) M/mm3 Hgb 10.9 L (12.0-15.0) g/dL Hct 38.7 (37.0-47.0) % MCV 94.9 (80-100) fl MCH 26.7 (26-34) pg MCHC 28.2 L (32-36) g/dl RDW 21.6 H (11.5-14.5) % Plt Count 484 H D (150-375) k/mm3 MPV 10.0 (7.4-10.4) fl Immature Gran % (Auto) 0.9 H (0-0.5) % Neut % (Auto) 91.1 H (45.5-73.1) % Lymph % (Auto) 2.6 L (18.3-44.2) % [place] % (Auto) 5.1 (2.6-8.5) % Eos % (Auto) 0.0 (0-4.4) % Baso % (Auto) 0.3 (0.2-1.2) % Lymph # (Auto) 0.60 L (0.9-3.2) K/mm3 [place] # (Auto) 1.2 H (0.1-0.6) K/mm3 Eos # (Auto) 0.0 (0-0.3) K/mm3 Baso # (Auto) 0.1 (0.0-0.1) K/mm3 Abs Immat Gran (auto) 0.20 H (0.00-0.031) K/mm3 Absolute Neuts (auto) 21.4 H (1.3-6.7) K/mm3 Absolute Nucleated RBC 0.000 (0.0-0.012) K/mm3 Nucleated RBC % 0.0 (0.0-0.2) % Sodium 140 (137-145) mmol/L Potassium 4.1 (3.4-5.0) mmol/L Chloride 101 (98-107) mmol/L Carbon Dioxide 28 (22-30) mmol/L Anion Gap 11 (4-12) mmol/L BUN 20 H (7-17) mg/dL Creatinine 0.70 (0.7-1.0) mg/dL Estim Creat Clear Calc 51 ml/min Estimated GFR > 60 (59 - ) Glucose 184 H (65-110) mg/dL Lactic Acid 3.8 H (0.7-2.0) mmol/L Calcium 9.0 (8.4-10.2) mg/dL Magnesium 2.0 (1.6-2.3) mg/dL Total Bilirubin 0.5 (0.2-1.3) mg/dL AST 38 H (14-36) U/L ALT 32 (6-35) U/L Alkaline Phosphatase 131 H (38-126) U/L Total Protein 8.0 (6.3-8.2) g/dL Albumin 4.4 (3.5-5.1) g/dL Urine Color Red H (Yellow) Urine Appearance Turbid H (Clear) Urine pH 8.5 H (5.0-8.0) Ur Specific [place] 1.020 (1.010-1.020) Urine Protein 3+ H (Negative) Urine Glucose (UA) Negative (Negative) Urine Ketones Trace H (Negative) Ur Blood (Man) 3+ H (Negative) Urine Nitrate Negative (Negative) Urine Bilirubin Negative (Negative) Urine Urobilinogen 0.2 (0.2-1.0) mg/dL Leukocyte Esterase Rfl Trace H (Negative) GIGI/UL Urine RBC >100 H (0-2) /hpf Urine WBC 21-50 (0-3) /hpf Ur Squamous Epith Cells Rare (Few) /hpf Imaging Data Attestation: I personally reviewed and interpreted this imaging study as follows: My impression: Impressions Abdomen/Pelvis CT 03/13/25 15:38 IMPRESSION: 1. Right hydronephrotic changes with dilated right ureter and surrounding fat stranding suggestive of infection. Minimal fullness of the left renal pelvis. 2. Slightly thickened wall with surrounding fat stranding suggestive of cystitis. 3. Fat infiltration of the liver. 4. Distended gallbladder with no stones. 5. Sliding hiatus hernia. 6. Sclerotic changes of T12 and L1 unchanged from previous examination. Critical Care Time Critical Care Time Critical Care Time: Yes Total Critical Care Time: 76 Discharge Plan Discharge Clinical Impression: Acute bacterial pyelonephritis, Sepsis, Urinary tract infection Patient Disposition: Still a Patient Condition: Stable Time of Disposition: 17:07
[2025-03-13 15:49] LABS: Add Urine Microscopic? YES
[2025-03-13 16:34] LABS: Color Urine Red (Yellow)
[2025-03-13 16:35] LABS: Appearance Urine Turbid (Clear); pH Urine 8.5 (5.0-8.0)
[2025-03-13 16:36] LABS: Bilirubin Urine Negative (Negative); Blood Urine 3+ (Negative); Glucose Urine UA Negative (Negative); Ketones Urine Trace (Negative); Nitrate Urine Negative (Negative); Protein Urine 3+ (Negative); Urobilinogen Urine 0.2 mg/dL (0.2-1.0)
[2025-03-13 16:37] LABS: Leukocyte Esterase Ur Trace LEU/UL (Negative); RBC Urine >100 /hpf (0-2); Squamous Epithelial Cell Urine Rare /hpf (Few); WBC Urine 21-50 /hpf (0-3)
[2025-03-13] MEDS: CEFEPIME 2 GM/NS 50 ML 2 GM/50 ML BAG IVPB (16:37)
[2025-03-13 16:55] LABS: Lactic Acid Reflex 3.8 mmol/L (0.7-2.0)
--- NOTE | 2025-03-13 17:06 | ECG_ITS ---
Test Date: 2025-03-13 17:13:43 Measurements Intervals [place] Rate: 129 P: 0 NM: 0 QRS: -38 QRSD: 124 T: 61 QT: 319 QTc: 467 Interpretive Statements ATRIAL FLUTTER/TACHYCARDIA WITH RAPID VENTRICULAR RESPONSE INDETERMINATE AXIS RIGHT BUNDLE BRANCH BLOCK [120+ ms QRS DURATION, UPRIGHT V1, 40+ ms S IN I/aVL/V4/V5/V6] ANTERIOR MYOCARDIAL INFARCTION , OF INDETERMINATE AGE [40+ ms Q WAVE AND/OR ST/T ABNORMALITY IN V3/V4] Compared to ECG 02/22/2025 14:56:40 Myocardial infarct finding now present Sinus tachycardia no longer present Electronically Signed On 03-15-2025 14:10:00 CDT by Ty Ann M.D.
--- NOTE | 2025-03-13 17:08 | P.HP_ITS ---
H&P: HPI History of Present Illness Date/Time: 03/13/25 17:08 Chief Complaint: Painful urination Narrative: 74-year-old female past medical history of pulmonary embolism, iron deficiency anemia, COVID, hypertension presents the hospital with painful urination and hematuria. Patient was in hospital up in the last month with pneumonia hospital course was uneventful. Patient states that she has been on 1-2 L of oxygen since she left the hospital. Patient states that she does not have hypertension that her right arm runs higher than her left arm. She has been taken off her antihypertensive medications. Patient states that she started drinking cranberry juice yesterday due to painful urination and blood in her urine. She states that whenever she told her daughter today that she had blood in her urine she insisted that she come to the hospital so the patient did. Patient denies fever or chills or increased shortness of breath. In the ED the her lab work shows leukocytosis 23.5, anemia with hemoglobin of 10.9, BUN of 20, lactic acid of 3.8, urine is red turbid, negative for nitrates, positive for trace leukocyte esterase, she over [address] abdomen pelvis showing Right hydronephrotic changes with dilated right ureter and surrounding fat stranding suggestive of infection. Minimal fullness of the left renal pelvis. Possible cystitis. Distended gallbladder without stones possibly larger than last month. EKG shows atrial flutter rate of 129. Patient started on cefepime received 3 L fluid bolus. Review of Systems Review of Systems: 12 systems were reviewed and are negativ e except for as per HPI. [facility] Past Medical History Medical History Tobacco dependence Hypertension Tobacco dependence Pneumonia due to COVID-19 virus (12/2021) Pulmonary embolism without acute cor pulmonale (12/2021) Surgical History Surgical History History of tubal ligation History of eye surgery Family History Family History Father Family history of malignant neoplasm Patient's father is Sibling Family history of heart disease in male family member before age 55 Diabetes mellitus Family history of malignant neoplasm Heart disease Mother Family history of heart disease in male family member before age 55 Heart disease Patient's mother is Sibling Heart disease Cancer Hypertension Grandparent Diabetes mellitus Son Cancer Social History Social History Social History: Surrogate medical decision maker: Taye Mcgill, spouse. Code status: Full code. Smoking packs per day: 1 Smoking cigarettes per day: 20.0 Years smoked: 61 Smoking pack-years: 61.00 Smoking status: Former smoker Tobacco type: cigarettes Second hand tobacco smoke exposure: Yes Smoking end date: 11/06/22 Alcohol intake: current Drinks per week: 1 Alcohol use details: 1-4 a week Substance use: never Substance use type: does not use Do You Feel Safe in your Home?: Yes Lack of Transportation: No Lack of Food: Never True Current Housing: I Have Housing Concerned About Future Housing: No Difficulty Paying Gas/Electric Bills: No Difficulty Paying for Meds: No Currently Unemployed: No Education: Associate Degree Difficulty w/ Childcare or Family Care: No Living arrangements: with family Occupation/Education: retired Spiritual care concerns: No Agree to blood products: Yes Meds Home Medications and Allergies Home Medications ?Medication ?Instructions ?Recorded ?Confirmed ?Type aspirin 81 mg tablet,delayed 81 mg PO DAILY 02/07/25 03/13/25 History release biotin 10,000 mcg capsule 10,000 mcg PO DAILY 02/07/25 03/13/25 History budesonide 160 mcg-glycopyr 9 2 inh inhalation BID #10.7 grams 02/07/25 03/13/25 Rx mcg-formot 4.8 mcg/actuation HFA inhaler (Breztri Aerosphere) furosemide 20 mg tablet (Lasix) 20 mg PO QAM #90 tabs 02/07/25 03/13/25 Rx multivitamin (Multiple Vitamins 1 tablet PO DAILY 02/07/25 03/13/25 History tablet) ferrous sulfate 325 mg (65 mg 325 mg PO DAILY #90 tabs 03/03/25 03/13/25 Rx iron) tablet Allergies Allergy/AdvReac Type Severity Reaction Status Date / Time latex Allergy Unknown Rash Verified 03/13/25 13:01 apixaban (From Eliquis) AdvReac Unknown Bleeding Verified 03/13/25 13:01 Vital Signs Vital Signs - 24 hr 03/13/25 13:06 03/13/25 13:08 03/13/25 13:09 Temperature 98.8 F Pulse Rate 110 H Respiratory Rate 20 Blood Pressure 194/72 H 194/72 H Pulse Oximetry 93 94 98 Oxygen Delivery Room Air Oxygen Flow Rate 03/13/25 13:15 03/13/25 13:27 03/13/25 13:30 Temperature Pulse Rate 130 H 134 H 131 H Respiratory Rate 26 H 19 22 H Blood Pressure 114/74 Pulse Oximetry 95 96 93 Oxygen Delivery Oxygen Flow Rate 03/13/25 13:31 03/13/25 13:56 03/13/25 14:00 Temperature Pulse Rate 131 H 135 H Respiratory Rate 30 H 42 H 28 H Blood Pressure 114/73 Pulse Oximetry 93 92 Oxygen Delivery Oxygen Flow Rate 03/13/25 14:05 03/13/25 14:15 03/13/25 14:15 Temperature Pulse Rate 131 H 123 H 123 H Respiratory Rate 26 H 20 30 H Blood Pressure 111/73 111/73 Pulse Oximetry 93 92 89 L Oxygen Delivery Oxygen Flow Rate 03/13/25 14:16 03/13/25 14:30 03/13/25 14:31 Temperature Pulse Rate 123 H 121 H 124 H Respiratory Rate 22 H 22 H 19 Blood Pressure 93/51 L 120/81 Pulse Oximetry 90 88 L 84 L Oxygen Delivery Oxygen Flow Rate 03/13/25 14:42 03/13/25 14:57 03/13/25 15:00 Temperature Pulse Rate 128 H 127 H Respiratory Rate 29 H 18 Blood Pressure Pulse Oximetry 98 94 98 Oxygen Delivery Nasal Cannula Oxygen Flow Rate 1 03/13/25 15:10 03/13/25 15:15 03/13/25 15:16 Temperature Pulse Rate 129 H 128 H 125 H Respiratory Rate 17 23 H 24 H Blood Pressure 106/77 111/66 Pulse Oximetry 96 97 96 Oxygen Delivery Oxygen Flow Rate 03/13/25 15:30 03/13/25 15:45 03/13/25 16:00 Temperature Pulse Rate 133 H 132 H 132 H Respiratory Rate 24 H 20 28 H Blood Pressure Pulse Oximetry 96 94 Oxygen Delivery Oxygen Flow Rate 03/13/25 16:15 03/13/25 16:30 03/13/25 16:42 Temperature Pulse Rate 131 H 132 H 131 H Respiratory Rate 29 H 20 31 H Blood Pressure 102/68 Pulse Oximetry 95 95 96 Oxygen Delivery Oxygen Flow Rate 03/13/25 16:45 03/13/25 16:46 03/13/25 17:00 Temperature Pulse Rate 131 H 132 H 127 H Respiratory Rate 30 H 28 H 20 Blood Pressure 83/61 L 121/82 Pulse Oximetry 96 95 97 Oxygen Delivery Oxygen Flow Rate 03/13/25 17:00 Temperature Pulse Rate 130 H Respiratory Rate 26 H Blood Pressure 121/82 Pulse Oximetry Oxygen Delivery Oxygen Flow Rate Exam Narrative: General: well appearing, appears stated age. HEENT: normocephalic, atraumatic. Mucous membranes moist. EOMI, PERRLA, bilateral sclera anicteric, no conjunctival injection. Neck supple without JVD, lymphadenopathy, or bruit. Respiratory: clear to ascultation bilaterally. No rales/rhonic/wheezes. Cardiovascular: Regular rate and rhythm, normal S1-S2 upon ascultation. No m urmurs, rubs, or clicks. PMI is nondisplaced, capillary refill less than 3 second. Abdomen: Soft, round, no pulsatile masses, nondistended and nontender. No rebound, no guarding. No CVA tenderness, no hepatosplenomegaly. Bowel sounds present to all four quadrants. No high pitch or tinkling sounds, resonant to percussion. Extremities: No cyanosis, clubbing, or edema present. Pulses are palpable 2/2. Active ROM to all four extremities. Neuro: Alert and orientated x 4. PERRLA. Cranial nerves 2-12 intact without focal deficit. Skin: Warm, dry, and intact, without rash, erythema, or lesion. Psych: pleasant, cooperative, normal speech, normal affect, no hallucinations, no dysarthia H&P: Results Labs Labs: Short CBC 03/13/25 Range/Units 13:24 WBC 23.5 H (4.5-10.0) K/mm3 Hgb 10.9 L (12.0-15.0) g/dL Hct 38.7 (37.0-47.0) % Plt Count 484 H D (150-375) k/mm3 BMP 03/13/25 13:24 Sodium 140 Potassium 4.1 Chloride 101 Carbon Dioxide 28 BUN 20 H Creatinine 0.70 Glucose 184 H Calcium 9.0 Liver Function 03/13/25 Range/Units 13:24 Total Bilirubin 0.5 (0.2-1.3) mg/dL AST 38 H (14-36) U/L ALT 32 (6-35) U/L Alkaline Phosphatase 131 H (38-126) U/L Albumin 4.4 (3.5-5.1) g/dL Urine 03/13/25 Range/Units 15:25 Urine Color Red H (Yellow) Urine Appearance Turbid H (Clear) Urine pH 8.5 H (5.0-8.0) Ur Specific [place] 1.020 (1.010-1.020) Urine Protein 3+ H (Negative) Urine Glucose (UA) Negative (Negative) Assessment and Plan Assessment and plan (1) Acute bacterial pyelonephritis: Code(s): N10 - Acute pyelonephritis; B96.89 - Other specified bacterial agents as the cause of diseases classified elsewhere Status: Acute Assessment and Plan: Urine culture and sensitivity pending Continue Cefepime (2) Sepsis: Code(s): A41.9 - Sepsis, unspecified organism Status: Acute Assessment and Plan: Secondary to above 3 L fluid bolus given Repeat lactic Blood cultures pending (3) Diastolic CHF: Code(s): I50.30 - Unspecified diastolic (congestive) heart failure Status: Acute Assessment and Plan: Patient received aggressive fluid bolus in ED monitor for fluid overload Currently holding home Lasix Reassess in a.m. (4) Microcytic anemia: Code(s): D50.9 - Iron deficiency anemia, unspecified Status: Acute Assessment and Plan: Continue iron (5) COPD (chronic obstructive pulmonary disease): Code(s): J44.9 - Chronic obstructive pulmonary disease, unspecified Status: Acute Assessment and Plan: Continue trilogy Wean oxygen as able L Quality VTE Prophylaxis VTE prophylaxis: mechanical ordered and pharmacologic ordered Hospitalist MIPS Advance Care Plan I have confirmed that the patient's Advanced Care Plan is present, code status is documented, or surrogate decision maker is listed in patient medical record.: Yes Medication Reconciliation I have utilized all available resources to obtain, update and review the patients current medications (includes all prescriptions, OTC, herbals, cannabis, and nutritional supplements).: Yes
--- NOTE | 2025-03-13 17:47 | ADMGEN ---
This patient, Georgette Mcgill, was admitted to IMU Room 205-02 at 1740. Patient/family oriented to hospital policies and general routines including ID bracelet, bed and alarms, visiting hours, pain management, procedures, bathroom and other care routines, personal items, smoking policy, room service/diet, and visiting hours. Information on how to activate the Rapid Response Team has been discussed. Patient/Family are encouraged to report perceived risks to care and to ask questions if they do not understand what they are told or what they should do.
[2025-03-13 18:44] LABS: Reflex Lactic Acid Yes or No Add Lactic
[2025-03-13 19:09] LABS: Lactic Acid 3.1 mmol/L (0.7-2.0)
[2025-03-13] MEDS: METOPROLOL TARTRATE INJ 5 MG/5 ML VIAL IV PUSH (21:23)
[2025-03-14] VITALS (21 sets, daily range): BP systolic 84–113; BP diastolic 57–69; PULSE 80–110; RESP 17–20; TEMP 36.4–36.9; O2SAT 94–99
[2025-03-14] MEDS: CEFEPIME 1 GM/NS 50 ML 1 GM/50 ML BAG IVPB (00:22)
[2025-03-14 04:30] LABS: Basophils Absolute Auto 0.1 K/mm3 (0.0-0.1); Basophils Percent Auto 0.5 % (0.2-1.2); Eosinophils Absolute Auto 0.1 K/mm3 (0-0.3); Eosinophils Percent Auto 0.4 % (0-4.4); Hematocrit 31.5 % (37.0-47.0); Immature Granulocyte Absolute 0.06 K/mm3 (0.00-0.031); Immature Granulocyte Percent A 0.4 % (0-0.5); Lymphocytes Absolute Auto 1.47 K/mm3 (0.9-3.2); Lymphocytes Percent Auto 10.8 % (18.3-44.2); Mean Corpuscular HGB Conc 28.6 g/dl (32-36); Mean Corpuscular Volume 94.6 fl (80-100); Mean Platelet Volume 9.9 fl (7.4-10.4); Monocytes Absolute Auto 1.6 K/mm3 (0.1-0.6); Monocytes Percent Auto 11.3 % (2.6-8.5); Neutrophils Absolute Auto 10.5 K/mm3 (1.3-6.7); Neutrophils Percent Auto 76.6 % (45.5-73.1); Platelet Count Result 376 k/mm3 (150-375); Red Blood Count 3.33 M/mm3 (4.2-5.4); Red Cell Distribution Width 21.3 % (11.5-14.5); White Blood Count 13.7 K/mm3 (4.5-10.0)
[2025-03-14 04:36] LABS: Lactic Acid Reflex 0.9 mmol/L (0.7-2.0)
[2025-03-14 04:37] LABS: Anion Gap 4 mmol/L (4-12); Blood Urea Nitrogen 18 mg/dL (7-17); Calcium 8.5 mg/dL (8.4-10.2); Carbon Dioxide 31 mmol/L (22-30); Chloride 103 mmol/L (98-107); Estimated Glomerular Filt Rate > 60; Glucose 134 mg/dL (65-110); Potassium 4.2 mmol/L (3.4-5.0); Sodium 138 mmol/L (137-145)
[2025-03-14 04:58] LABS: Platelet Estimate Adequate (Adequate)
[2025-03-14 04:59] LABS: Anisocytosis 1+; Hypochromasia 1+; Schistocytes None Seen
[2025-03-14] MEDS: FUROSEMIDE 20 MG TABLET PO (08:41)
[2025-03-14] MEDS: ASPIRIN 81 MG ENTERIC TABLET PO (08:41)
[2025-03-14] MEDS: FERROUS SULFATE 325 MG TABLET DR PO (08:41)
[2025-03-14] MEDS: DOCUSATE SODIUM 100 MG CAPSULE PO ×2 (08:41→17:14)
[2025-03-14] MEDS: FLUTICASONE/UMECLIDIN/VILANTER 100-62.5-25 MCG ELLIPTA 1 PUFF INHALATION (08:47)
[2025-03-14] MEDS: ENOXAPARIN 40 MG/0.4 ML SYRINGE SUB-Q (09:39)
[2025-03-14] MEDS: SODIUM CHLORIDE 0.9% IV 500 ML 999 ML IV CONT (11:38)
[2025-03-14] MEDS: CEFEPIME 2 GM/NS 50 ML 2 GM/50 ML BAG IVPB ×2 (12:21→21:06)
[2025-03-14] MEDS: SODIUM CHLORIDE 0.9% IV 1,000 ML 75 ML IV CONT ×2 (12:22→19:00)
--- NOTE | 2025-03-14 14:25 | P.PNIM_ITS ---
Progress Note: A&P Assessment and Plan (1) Acute bacterial pyelonephritis: Code(s): N10 - Acute pyelonephritis; B96.89 - Other specified bacterial agents as the cause of diseases classified elsewhere Status: Acute Assessment and Plan: Urine culture and sensitivity pending Continue Cefepime (2) Sepsis: Code(s): A41.9 - Sepsis, unspecified organism Status: Acute Assessment and Plan: Secondary to above s/p IVF Repeat lactic Blood cultures pending (3) Diastolic CHF: Code(s): I50.30 - Unspecified diastolic (congestive) heart failure Status: Acute Assessment and Plan: Patient received aggressive fluid bolus in ED monitor for fluid overload Currently holding home Lasix Reassess in a.m. (4) Microcytic anemia: Code(s): D50.9 - Iron deficiency anemia, unspecified Status: Acute Assessment and Plan: Continue iron (5) COPD (chronic obstructive pulmonary disease): Code(s): J44.9 - Chronic obstructive pulmonary disease, unspecified Status: Acute Assessment and Plan: Continue trilogy Wean oxygen as able Plan DVT prophyalxis on Sq Lovenox Subjective Date/time seen: 03/14/25 14:25 Interval history: Comfortable at bedside Review of Systems Review of Systems: 12 systems were reviewed and are negativ e except for as per HPI. Exam Narrative: General: well appearing, appears stated age. HEENT: normocephalic, atraumatic. Mucous membranes moist. EOMI, PERRLA, bilateral sclera anicteric, no conjunctival injection. Neck supple without JVD, lymphadenopathy, or bruit. Respiratory: clear to ascultation bilaterally. No rales/rhonic/wheezes. Cardiovascular: Regular rate and rhythm, normal S1-S2 upon ascultation. No murmurs, rubs, or clicks. PMI is nondisplaced, capillary refill less than 3 second. Abdomen: Soft, round, no pulsatile masses, nondistended and nontender. No rebound, no guarding. No CVA tenderness, no hepatosplenomegaly. Bowel sounds present to all four quadrants. No high pitch or tinkling sounds, resonant to percussion. Extremities: No cyanosis, clubbing, or edema present. Pulses are palpable 2/2. Active ROM to all four extremities. Neuro: Alert and orientated x 4. PERRLA. Cranial nerves 2-12 intact without focal deficit. Skin: Warm, dry, and intact, without rash, erythema, or lesion. Psych: pleasant, cooperative, normal speech, normal affect, no hallucinations, no dysarthia Objective Data Vital Signs Vital Signs: Vital Signs - 24 hr 03/13/25 14:30 03/13/25 14:31 03/13/25 14:42 Temperature Pulse Rate 121 H 124 H Respiratory Rate 22 H 19 Blood Pressure 120/81 Pulse Oximetry 88 L 84 L 98 Oxygen Delivery Nasal Cannula Oxygen Flow Rate 1 03/13/25 14:57 03/13/25 15:00 03/13/25 15:10 Temperature Pulse Rate 128 H 127 H 129 H Respiratory Rate 29 H 18 17 Blood Pressure 106/77 Pulse Oximetry 94 98 96 Oxygen Delivery Oxygen Flow Rate 03/13/25 15:15 03/13/25 15:16 03/13/25 15:30 Temperature Pulse Rate 128 H 125 H 133 H Respiratory Rate 23 H 24 H 24 H Blood Pressure 111/66 Pulse Oximetry 97 96 Oxygen Delivery Oxygen Flow Rate 03/13/25 15:45 03/13/25 16:00 03/13/25 16:15 Temperature Pulse Rate 132 H 132 H 131 H Respiratory Rate 20 28 H 29 H Blood Pressure Pulse Oximetry 96 94 95 Oxygen Delivery Oxygen Flow Rate 03/13/25 16:30 03/13/25 16:42 03/13/25 16:45 Temperature Pulse Rate 132 H 131 H 131 H Respiratory Rate 20 31 H 30 H Blood Pressure 102/68 Pulse Oximetry 95 96 96 Oxygen Delivery Oxygen Flow Rate 03/13/25 16:46 03/13/25 17:00 03/13/25 17:00 Temperature Pulse Rate 132 H 127 H 130 H Respiratory Rate 28 H 20 26 H Blood Pressure 83/61 L 121/82 121/82 Pulse Oximetry 95 97 Oxygen Delivery Oxygen Flow Rate 03/13/25 18:00 03/13/25 19:14 03/13/25 20:00 Temperature 99.1 F Pulse Rate 127 H 126 H Respiratory Rate 24 H Blood Pressure 92/58 L Pulse Oximetry 96 98 Oxygen Delivery Nasal Cannula Oxygen Flow Rate 2 03/13/25 20:00 03/13/25 20:33 03/13/25 21:23 Temperature Pulse Rate 120 H 100 Respiratory Rate Blood Pressure Pulse Oximetry 95 Oxygen Delivery Nasal Cannula Oxygen Flow Rate 1 03/13/25 22:16 03/13/25 23:39 03/13/25 23:50 Temperature 98.0 F Pulse Rate 109 H 90 Respiratory Rate 16 Blood Pressure 91/56 L Pulse Oximetry 99 99 Oxygen Delivery Nasal Cannula Oxygen Flow Rate 2 03/14/25 00:00 03/14/25 02:05 03/14/25 03:20 Temperature 98.4 F Pulse Rate 88 100 95 Respiratory Rate 18 Blood Pressure 100/65 Pulse Oximetry 99 Oxygen Delivery Oxygen Flow Rate 03/14/25 03:28 03/14/25 04:00 03/14/25 05:52 Temperature Pulse Rate 95 98 87 Respiratory Rate Blood Pressure Pulse Oximetry 99 Oxygen Delivery Nasal Cannula Oxygen Flow Rate 2 03/14/25 07:53 03/14/25 08:48 03/14/25 08:48 Temperature 97.9 F Pulse Rate 93 80 Respiratory Rate 18 20 Blood Pressure 108/57 L Pulse Oximetry 97 94 Oxygen Delivery Nasal Cannula Oxygen Flow Rate 1 03/14/25 11:26 Temperature 98.1 F Pulse Rate 105 H Respiratory Rate 20 Blood Pressure 84/69 L Pulse Oximetry 95 Oxygen Delivery Oxygen Flow Rate Intake/Output Intake/Output: Intake & Output 03/11/25 03/12/25 03/13/25 03/14/25 23:59 23:59 23:59 23:59 Intake Total 1050 480 Balance 1050 480 Meds/Results Medications: Active Medications Generic Name Dose Route Start Last Admin Trade Name Freq PRN Reason Stop Dose Admin Acetaminophen 650 mg 03/13/25 16:10 Acetaminophen 325 Mg Tablet PO Q4H PRN Mild Pain (1-3) or Fever Hydrocodone Bitart/Acetaminophen 1 tab 03/13/25 16:10 Hydrocodone/Acetaminophen (*Crx) 5-325 Mg Tablet PO Q4H PRN Pain Rated 4-6 Aspirin 81 mg 03/14/25 09:00 03/14/25 08:41 Aspirin 81 Mg Enteric Tablet PO 81 mg DAILY SLIME Administration Docusate Sodium 100 mg 03/14/25 09:00 03/14/25 08:41 Docusate Sodium 100 Mg Capsule PO 100 mg BID SLIME Administration Enoxaparin Sodium 40 mg 03/14/25 09:00 03/14/25 09:39 Enoxaparin 40 Mg/0.4 Ml Syringe SUB-Q 40 mg DAILY SLIME Administration Ferrous Sulfate 325 mg 03/14/25 09:00 03/14/25 08:41 Ferrous Sulfate [address] PO 325 mg DAILY SLIME Administration Fluticasone/Umeclidinium/Vilanterol 1 puff 03/14/25 09:00 03/14/25 08:47 Fluticasone/Umeclidin/Vilanter 100-62.5-25 Mcg Ellipta INHALATION 1 puff DAILY SLIME Administration Furosemide 20 mg 03/14/25 09:00 03/14/25 08:41 Furosemide 20 Mg Tablet PO 20 mg QAM SLIME Administration Sodium Chloride 1,000 mls @ 75 mls/hr 03/14/25 11:30 03/14/25 12:22 Normal Saline Iv IV CONT 75 mls/hr .[id number] SLIME Administration Cefepime HCl 2 gm in 50 mls @ 100 mls/hr 03/14/25 12:00 03/14/25 12:21 Maxipime 2 Gm/Ns 50 Ml IVPB 100 mls/hr Q12HR SLIME Administration Morphine Sulfate 4 mg 03/13/25 16:10 Morphine Sulfate (*Crx) 4 Mg/Ml Inj IV PUSH Q2H PRN Pain Rated 7-10 Ondansetron HCl 4 mg 03/13/25 16:10 Ondansetron Inj 4 Mg/2 Ml Vial IV PUSH Q4H PRN Nausea Radiology Results: ITS Impressions Abdomen/Pelvis CT 03/13/25 15:38 IMPRESSION: 1. Right hydronephrotic changes with dilated right ureter and surrounding fat stranding suggestive of infection. Minimal fullness of the left renal pelvis. 2. Slightly thickened wall with surrounding fat stranding suggestive of cystitis. 3. Fat infiltration of the liver. 4. Distended gallbladder with no stones. 5. Sliding hiatus hernia. 6. Sclerotic changes of T12 and L1 unchanged from previous examination. Labs Labs: Laboratory Results - last 24 hr 03/13/25 03/13/25 03/13/25 15:25 15:40 18:55 WBC RBC Hgb Hct MCV MCH MCHC RDW Plt Count MPV Immature Gran % (Auto) Neut % (Auto) Lymph % (Auto) [place] % (Auto) Eos % (Auto) Baso % (Auto) Lymph # (Auto) [place] # (Auto) Eos # (Auto) Baso # (Auto) Abs Immat Gran (auto) Absolute Neuts (auto) Absolute Nucleated RBC Band Neutrophils % Nucleated RBC % Platelet Estimate Hypochromasia Anisocytosis Schistocytes Sodium Potassium Chloride Carbon Dioxide Anion Gap BUN Creatinine Estim Creat Clear Calc Estimated GFR Glucose Lactic Acid 3.8 H 3.1 H Calcium Urine Color Red H Urine Appearance Turbid H Urine pH 8.5 H Ur Specific [place] 1.020 Urine Protein 3+ H Urine Glucose (UA) Negative Urine Ketones Trace H Ur Blood (Man) 3+ H Urine Nitrate Negative Urine Bilirubin Negative Urine Urobilinogen 0.2 Leukocyte Esterase Rfl Trace H Urine RBC >100 H Urine WBC 21-50 Ur Squamous Epith Cells Rare 03/14/25 03:55 WBC 13.7 H RBC 3.33 L Hgb 9.0 L Hct 31.5 L MCV 94.6 MCH 27.0 MCHC 28.6 L RDW 21.3 H Plt Count 376 H MPV 9.9 Immature Gran % (Auto) 0.4 Neut % (Auto) 76.6 H Lymph % (Auto) 10.8 L [place] % (Auto) 11.3 H Eos % (Auto) 0.4 Baso % (Auto) 0.5 Lymph # (Auto) 1.47 [place] # (Auto) 1.6 H Eos # (Auto) 0.1 Baso # (Auto) 0.1 Abs Immat Gran (auto) 0.06 H Absolute Neuts (auto) 10.5 H Absolute Nucleated RBC 0.000 Band Neutrophils % Not Reportable Nucleated RBC % 0.0 Platelet Estimate Adequate Hypochromasia 1+ Anisocytosis 1+ Schistocytes None seen Sodium 138 Potassium 4.2 Chloride 103 Carbon Dioxide 31 H Anion Gap 4 BUN 18 H Creatinine 0.65 L Estim Creat Clear Calc Not Reportable Estimated GFR > 60 Glucose 134 H Lactic Acid 0.9 Calcium 8.5 Urine Color Urine Appearance Urine pH Ur Specific [place] Urine Protein Urine Glucose (UA) Urine Ketones Ur Blood (Man) Urine Nitrate Urine Bilirubin Urine Urobilinogen Leukocyte Esterase Rfl Urine RBC Urine WBC Ur Squamous Epith Cells Quality VTE Prophylaxis VTE prophylaxis: mechanical ordered and pharmacologic ordered
[2025-03-15] VITALS (14 sets, daily range): BP systolic 92–132; BP diastolic 62–73; PULSE 84–116; RESP 16–24; TEMP 36.3–37; O2SAT 91–98
[2025-03-15] MEDS: FERROUS SULFATE 325 MG TABLET DR PO (08:28)
[2025-03-15] MEDS: ENOXAPARIN 40 MG/0.4 ML SYRINGE SUB-Q (08:28)
[2025-03-15] MEDS: ASPIRIN 81 MG ENTERIC TABLET PO (08:28)
[2025-03-15] MEDS: FUROSEMIDE 20 MG TABLET PO (08:28)
[2025-03-15] MEDS: DOCUSATE SODIUM 100 MG CAPSULE PO (08:29)
[2025-03-15] MEDS: CEFEPIME 2 GM/NS 50 ML 2 GM/50 ML BAG IVPB ×2 (08:29→20:34)
[2025-03-15] MEDS: SODIUM CHLORIDE 0.9% IV 1,000 ML 75 ML IV CONT (08:36)
[2025-03-15] MEDS: FLUTICASONE/UMECLIDIN/VILANTER 100-62.5-25 MCG ELLIPTA 1 PUFF INHALATION (09:13)
--- NOTE | 2025-03-15 12:03 | P.PNIM_ITS ---
Progress Note: A&P Assessment and Plan (1) Acute bacterial pyelonephritis: Code(s): N10 - Acute pyelonephritis; B96.89 - Other specified bacterial agents as the cause of diseases classified elsewhere Status: Acute Assessment and Plan: urine and blood culture negative so far Continue Cefepime (2) Sepsis: Code(s): A41.9 - Sepsis, unspecified organism Status: Acute Assessment and Plan: Secondary to above s/p IVF Repeat lactic Blood cultures pending L (3) Diastolic CHF: Code(s): I50.30 - Unspecified diastolic (congestive) heart failure Status: Acute Assessment and Plan: Patient received aggressive fluid bolus in ED monitor for fluid overload Currently holding home Lasix Reassess in a.m. (4) Microcytic anemia: Code(s): D50.9 - Iron deficiency anemia, unspecified Status: Acute Assessment and Plan: Continue iron (5) COPD (chronic obstructive pulmonary disease): Code(s): J44.9 - Chronic obstructive pulmonary disease, unspecified Status: Acute Assessment and Plan: Continue trilogy Wean oxygen as able Plan DVT prophyalxis on Sq Lovenox Subjective Date/time seen: 03/15/25 12:03 Interval history: Comfortable at bedside Review of Systems Review of Systems: 12 systems were reviewed and are negativ e except for as per HPI. Exam Narrative: General: well appearing, appears stated age. HEENT: normocephalic, atraumatic. Mucous membranes moist. EOMI, PERRLA, bilateral sclera anicteric, no conjunctival injection. Neck supple without JVD, lymphadenopathy, or bruit. Respiratory: clear to ascultation bilaterally. No rales/rhonic/wheezes. Cardiovascular: Regular rate and rhythm, normal S1-S2 upon ascultation. No murmurs, rubs, or clicks. PMI is nondisplaced, capillary refill less than 3 second. Abdomen: Soft, round, no pulsatile masses, nondistended and nontender. No rebound, no guarding. No CVA tenderness, no hepatosplenomegaly. Bowel sounds present to all four quadrants. No high pitch or tinkling sounds, resonant to percussion. Extremities: No cyanosis, clubbing, or edema present. Pulses are palpable 2/2. Active ROM to all four extremities. Neuro: Alert and orientated x 4. PERRLA. Cranial nerves 2-12 intact without focal deficit. Skin: Warm, dry, and intact, without rash, erythema, or lesion. Psych: pleasant, cooperative, normal speech, normal affect, no hallucinations, no dysarthia Objective Data Vital Signs Vital Signs: Vital Signs - 24 hr 03/14/25 14:00 03/14/25 15:46 03/14/25 16:00 Temperature 98.4 F Pulse Rate 107 H 106 H 102 H Respiratory Rate 20 Blood Pressure 94/65 L Pulse Oximetry 95 Oxygen Delivery Oxygen Flow Rate 03/14/25 16:00 03/14/25 18:00 03/14/25 19:46 Temperature 98.2 F Pulse Rate 105 H 97 Respiratory Rate 17 Blood Pressure 102/59 L Pulse Oximetry 99 97 Oxygen Delivery Nasal Cannula Oxygen Flow Rate 2 03/14/25 20:00 03/14/25 20:00 03/14/25 22:00 Temperature Pulse Rate 95 86 Respiratory Rate Blood Pressure Pulse Oximetry 95 Oxygen Delivery Nasal Cannula Oxygen Flow Rate 1 03/14/25 22:45 03/14/25 23:32 03/15/25 00:00 Temperature 97.6 F Pulse Rate 95 94 Respiratory Rate 17 Blood Pressure 113/67 Pulse Oximetry 96 98 95 Oxygen Delivery Nasal Cannula Nasal Cannula Oxygen Flow Rate 1 1 03/15/25 00:00 03/15/25 02:00 03/15/25 03:39 Temperature 97.4 F L Pulse Rate 84 87 97 Respiratory Rate 18 Blood Pressure 104/62 Pulse Oximetry 98 Oxygen Delivery Oxygen Flow Rate 03/15/25 04:00 03/15/25 04:00 03/15/25 06:00 Temperature Pulse Rate 86 88 Respiratory Rate Blood Pressure Pulse Oximetry 96 Oxygen Delivery Nasal Cannula Oxygen Flow Rate 1 03/15/25 07:55 03/15/25 08:00 03/15/25 08:00 Temperature 97.6 F Pulse Rate 98 98 98 Respiratory Rate 18 18 Blood Pressure 115/71 Pulse Oximetry 96 96 Oxygen Delivery Nasal Cannula Oxygen Flow Rate 1 03/15/25 09:00 03/15/25 09:13 03/15/25 09:13 Temperature Pulse Rate 112 H Respiratory Rate 20 Blood Pressure Pulse Oximetry 96 92 Oxygen Delivery Room Air Room Air Oxygen Flow Rate 03/15/25 10:00 Temperature Pulse Rate 105 H Respiratory Rate Blood Pressure Pulse Oximetry Oxygen Delivery Oxygen Flow Rate Intake/Output Intake/Output: Intake & Output 03/12/25 03/13/25 03/14/25 03/15/25 23:59 23:59 23:59 23:59 Intake Total 1050 1820 1240 Output Total 0 1500 Balance 1050 1820 -260 Meds/Results Medications: Active Medications Generic Name Dose Route Start Last Admin Trade Name Freq PRN Reason Stop Dose Admin Acetaminophen 650 mg 03/13/25 16:10 Acetaminophen 325 Mg Tablet PO Q4H PRN Mild Pain (1-3) or Fever Hydrocodone Bitart/Acetaminophen 1 tab 03/13/25 16:10 Hydrocodone/Acetaminophen (*Crx) 5-325 Mg Tablet PO Q4H PRN Pain Rated 4-6 Aspirin 81 mg 03/14/25 09:00 03/15/25 08:28 Aspirin 81 Mg Enteric Tablet PO 81 mg DAILY SLIME Administration Docusate Sodium 100 mg 03/14/25 09:00 03/15/25 08:29 Docusate Sodium 100 Mg Capsule PO 100 mg BID SLIME Administration Enoxaparin Sodium 40 mg 03/14/25 09:00 03/15/25 08:28 Enoxaparin 40 Mg/0.4 Ml Syringe SUB-Q 40 mg DAILY SLIME Administration Ferrous Sulfate 325 mg 03/14/25 09:00 03/15/25 08:28 Ferrous Sulfate [address] PO 325 mg DAILY SLIME Administration Fluticasone/Umeclidinium/Vilanterol 1 puff 03/14/25 09:00 03/15/25 09:13 Fluticasone/Umeclidin/Vilanter 100-62.5-25 Mcg Ellipta INHALATION 1 puff DAILY SLIME Administration Furosemide 20 mg 03/14/25 09:00 03/15/25 08:28 Furosemide 20 Mg Tablet PO 20 mg QAM SLIME Administration Cefepime HCl 2 gm in 50 mls @ 100 mls/hr 03/14/25 12:00 03/15/25 08:29 Maxipime 2 Gm/Ns 50 Ml IVPB 100 mls/hr Q12HR SLIME Administration Morphine Sulfate 4 mg 03/13/25 16:10 Morphine Sulfate (*Crx) 4 Mg/Ml Inj IV PUSH Q2H PRN Pain Rated 7-10 Ondansetron HCl 4 mg 03/13/25 16:10 Ondansetron Inj 4 Mg/2 Ml Vial IV PUSH Q4H PRN Nausea Radiology Results: ITS Impressions Abdomen/Pelvis CT 03/13/25 15:38 IMPRESSION: 1. Right hydronephrotic changes with dilated right ureter and surrounding fat stranding suggestive of infection. Minimal fullness of the left renal pelvis. 2. Slightly thickened wall with surrounding fat stranding suggestive of cystitis. 3. Fat infiltration of the liver. 4. Distended gallbladder with no stones. 5. Sliding hiatus hernia. 6. Sclerotic changes of T12 and L1 unchanged from previous examination. Quality VTE Prophylaxis VTE prophylaxis: mechanical ordered and pharmacologic ordered
[2025-03-16 04:16] LABS: Basophils Absolute Auto 0.1 K/mm3 (0.0-0.1); Basophils Percent Auto 0.7 % (0.2-1.2); Eosinophils Absolute Auto 0.2 K/mm3 (0-0.3); Eosinophils Percent Auto 2.5 % (0-4.4); Hematocrit 30.9 % (37.0-47.0); Hemoglobin 8.9 g/dL (12.0-15.0); Immature Granulocyte Absolute 0.04 K/mm3 (0.00-0.031); Immature Granulocyte Percent A 0.5 % (0-0.5); Lymphocytes Absolute Auto 1.33 K/mm3 (0.9-3.2); Mean Corpuscular HGB Conc 28.8 g/dl (32-36); Mean Corpuscular Hemoglobin 27.1 pg (26-34); Mean Corpuscular Volume 94.2 fl (80-100); Mean Platelet Volume 10.2 fl (7.4-10.4); Monocytes Absolute Auto 0.7 K/mm3 (0.1-0.6); Monocytes Percent Auto 8.4 % (2.6-8.5); Neutrophils Percent Auto 71.9 % (45.5-73.1); Platelet Count Result 364 k/mm3 (150-375); Red Blood Count 3.28 M/mm3 (4.2-5.4); Red Cell Distribution Width 20.2 % (11.5-14.5); White Blood Count 8.3 K/mm3 (4.5-10.0)
[2025-03-16 04:29] LABS: Alanine Aminotransferase 25 U/L (6-35); Albumin Level 3.2 g/dL (3.5-5.1); Alkaline Phosphatase 89 U/L (38-126); Anion Gap 6 mmol/L (4-12); Aspartate Amino Transferase 30 U/L (14-36); Bilirubin,Total 0.1 mg/dL (0.2-1.3); Blood Urea Nitrogen 13 mg/dL (7-17); Calcium 8.4 mg/dL (8.4-10.2); Carbon Dioxide 31 mmol/L (22-30); Chloride 103 mmol/L (98-107); Estimated Glomerular Filt Rate > 60; Glucose 135 mg/dL (65-110); Potassium 3.5 mmol/L (3.4-5.0); Sodium 140 mmol/L (137-145)
[2025-03-16 04:40] LABS: Anisocytosis 1+; Band Neutrophils Percent 0 % (0-6); Hypochromasia 1+; Ovalocytes 1+; Platelet Estimate Adequate (Adequate); Schistocytes None Seen
[2025-03-16 08:00] VITALS: BP 119/71; PULSE 98; RESP 18; TEMP 36.5; O2SAT 90
[2025-03-16] MEDS: FLUTICASONE/UMECLIDIN/VILANTER 100-62.5-25 MCG ELLIPTA 1 PUFF INHALATION (08:02)
[2025-03-16 08:04] VITALS: O2SAT 97
[2025-03-16] MEDS: ENOXAPARIN 40 MG/0.4 ML SYRINGE SUB-Q (09:26)
[2025-03-16] MEDS: ASPIRIN 81 MG ENTERIC TABLET PO (09:26)
[2025-03-16] MEDS: FUROSEMIDE 20 MG TABLET PO (09:26)
[2025-03-16] MEDS: CEFEPIME 2 GM/NS 50 ML 2 GM/50 ML BAG IVPB ×2 (09:26→20:29)
[2025-03-16] MEDS: FERROUS SULFATE 325 MG TABLET DR PO (09:26)
[2025-03-16] MEDS: DOCUSATE SODIUM 100 MG CAPSULE PO ×2 (09:26→18:20)
[2025-03-16 15:52] VITALS: BP 134/85; PULSE 103; RESP 18; TEMP 37.3; O2SAT 92
--- NOTE | 2025-03-16 15:53 | P.PNIM_ITS ---
Progress Note: A&P Assessment and Plan (1) Acute bacterial pyelonephritis: Code(s): N10 - Acute pyelonephritis; B96.89 - Other specified bacterial agents as the cause of diseases classified elsewhere Status: Acute Assessment and Plan: urine and blood culture negative so far Continue Cefepime (2) Sepsis: Code(s): A41.9 - Sepsis, unspecified organism Status: Acute Assessment and Plan: Secondary to above s/p IVF Repeat lactic Blood cultures pending L (3) Diastolic CHF: Code(s): I50.30 - Unspecified diastolic (congestive) heart failure Status: Acute Assessment and Plan: Patient received aggressive fluid bolus in ED monitor for fluid overload Currently holding home Lasix Reassess in a.m. (4) Microcytic anemia: Code(s): D50.9 - Iron deficiency anemia, unspecified Status: Acute Assessment and Plan: Continue iron IV iron 500/1000 (5) COPD (chronic obstructive pulmonary disease): Code(s): J44.9 - Chronic obstructive pulmonary disease, unspecified Status: Acute Assessment and Plan: Continue trilogy Wean oxygen as able Plan DVT prophyalxis on Sq Lovenox Subjective Date/time seen: 03/16/25 15:53 Interval history: Comfortable at bedside Review of Systems Review of Systems: 12 systems were reviewed and are negativ e except for as per HPI. Exam Narrative: General: well appearing, appears stated age. HEENT: normocephalic, atraumatic. Mucous membranes moist. EOMI, PERRLA, bilateral sclera anicteric, no conjunctival injection. Neck supple without JVD, lymphadenopathy, or bruit. Respiratory: clear to ascultation bilaterally. No rales/rhonic/wheezes. Cardiovascular: Regular rate and rhythm, normal S1-S2 upon ascultation. No murmurs, rubs, or clicks. PMI is nondisplaced, capillary refill less than 3 second. Abdomen: Soft, round, no pulsatile masses, nondistended and nontender. No rebound, no guarding. No CVA tenderness, no hepatosplenomegaly. Bowel sounds present to all four quadrants. No high pitch or tinkling sounds, resonant to percussion. Extremities: No cyanosis, clubbing, or edema present. Pulses are palpable 2/2. Active ROM to all four extremities. Neuro: Alert and orientated x 4. PERRLA. Cranial nerves 2-12 intact without focal deficit. Skin: Warm, dry, and intact, without rash, erythema, or lesion. Psych: pleasant, cooperative, normal speech, normal affect, no hallucinations, no dysarthia Objective Data Vital Signs Vital Signs: Vital Signs - 24 hr 03/15/25 16:00 03/15/25 20:00 03/15/25 23:28 Temperature 98.6 F 98.3 F Pulse Rate 106 H 107 H Respiratory Rate 20 16 Blood Pressure 132/73 107/62 Pulse Oximetry 92 94 91 Oxygen Delivery Room Air Oxygen Flow Rate 03/16/25 08:00 03/16/25 08:04 03/16/25 15:52 Temperature 97.7 F 99.1 F Pulse Rate 98 103 H Respiratory Rate 18 18 Blood Pressure 119/71 134/85 Pulse Oximetry 90 97 92 Oxygen Delivery Nasal Cannula Oxygen Flow Rate 1 Intake/Output Intake/Output: Intake & Output 03/13/25 03/14/25 03/15/25 03/16/25 23:59 23:59 23:59 23:59 Intake Total 1050 1820 2538 1200 Output Total 0 2050 Balance 1050 1654 046 0568 Meds/Results Medications: Active Medications Generic Name Dose Route Start Last Admin Trade Name Freq PRN Reason Stop Dose Admin Acetaminophen 650 mg 03/13/25 16:10 Acetaminophen 325 Mg Tablet PO Q4H PRN Mild Pain (1-3) or Fever Hydrocodone Bitart/Acetaminophen 1 tab 03/13/25 16:10 Hydrocodone/Acetaminophen (*Crx) 5-325 Mg Tablet PO Q4H PRN Pain Rated 4-6 Aspirin 81 mg 03/14/25 09:00 03/16/25 09:26 Aspirin 81 Mg Enteric Tablet PO 81 mg DAILY SLIME Administration Docusate Sodium 100 mg 03/14/25 09:00 03/16/25 09:26 Docusate Sodium 100 Mg Capsule PO 100 mg BID SLIME Administration Enoxaparin Sodium 40 mg 03/14/25 09:00 03/16/25 09:26 Enoxaparin 40 Mg/0.4 Ml Syringe SUB-Q 40 mg DAILY SLIME Administration Ferrous Sulfate 325 mg 03/14/25 09:00 03/16/25 09:26 Ferrous Sulfate [address] PO 325 mg DAILY SLIME Administration Fluticasone/Umeclidinium/Vilanterol 1 puff 03/14/25 09:00 03/16/25 08:02 Fluticasone/Umeclidin/Vilanter 100-62.5-25 Mcg Ellipta INHALATION 1 puff DAILY SLIME Administration Furosemide 20 mg 03/14/25 09:00 03/16/25 09:26 Furosemide 20 Mg Tablet PO 20 mg QAM SLIME Administration Cefepime HCl 2 gm in 50 mls @ 100 mls/hr 03/14/25 12:00 03/16/25 09:26 Maxipime 2 Gm/Ns 50 Ml IVPB 100 mls/hr Q12HR SLIME Administration Morphine Sulfate 4 mg 03/13/25 16:10 Morphine Sulfate (*Crx) 4 Mg/Ml Inj IV PUSH Q2H PRN Pain Rated 7-10 Ondansetron HCl 4 mg 03/13/25 16:10 Ondansetron Inj 4 Mg/2 Ml Vial IV PUSH Q4H PRN Nausea Radiology Results: ITS Impressions Abdomen/Pelvis CT 03/13/25 15:38 IMPRESSION: 1. Right hydronephrotic changes with dilated right ureter and surrounding fat stranding suggestive of infection. Minimal fullness of the left renal pelvis. 2. Slightly thickened wall with surrounding fat stranding suggestive of cystitis. 3. Fat infiltration of the liver. 4. Distended gallbladder with no stones. 5. Sliding hiatus hernia. 6. Sclerotic changes of T12 and L1 unchanged from previous examination. Labs Labs: Laboratory Results - last 24 hr 03/16/25 03:55 WBC 8.3 RBC 3.28 L Hgb 8.9 L Hct 30.9 L MCV 94.2 MCH 27.1 MCHC 28.8 L RDW 20.2 H Plt Count 364 MPV 10.2 Immature Gran % (Auto) 0.5 Neut % (Auto) 71.9 Lymph % (Auto) 16.0 L [place] % (Auto) 8.4 Eos % (Auto) 2.5 Baso % (Auto) 0.7 Lymph # (Auto) 1.33 [place] # (Auto) 0.7 H Eos # (Auto) 0.2 Baso # (Auto) 0.1 Abs Immat Gran (auto) 0.04 H Absolute Neuts (auto) 6.0 Absolute Nucleated RBC 0.000 Band Neutrophils % 0 Nucleated RBC % 0.0 Platelet Estimate Adequate Hypochromasia 1+ Anisocytosis 1+ Ovalocytes 1+ Schistocytes None seen Sodium 140 Potassium 3.5 Chloride 103 Carbon Dioxide 31 H Anion Gap 6 BUN 13 D Creatinine 0.53 L Estim Creat Clear Calc Not Reportable Estimated GFR > 60 Glucose 135 H Calcium 8.4 Magnesium 2.0 Total Bilirubin 0.1 L AST 30 ALT 25 Alkaline Phosphatase 89 Total Protein 6.0 L Albumin 3.2 L Quality VTE Prophylaxis VTE prophylaxis: mechanical ordered and pharmacologic ordered
[2025-03-16] MEDS: IRON SUCROSE COMPLEX 400 MG, IRON SUCROSE COMPLEX 100 MG in SODIUM CHLORIDE 0.9% IV 250 ML 78.57 MG IVPB (16:40)
[2025-03-16 17:50] VITALS: BP 129/65; PULSE 101; RESP 19; TEMP 36.6; O2SAT 95
--- NOTE | 2025-03-16 18:17 | PC.NURSE ---
This patient, Georgette Mcgill, was transferred to IMU on 03/16/25 at 1710. Personal belongings sent with patient. Report given to [ ]. Appropriate documentation sent with patient.
[2025-03-16 21:47] VITALS: BP 155/60; PULSE 104; RESP 20; TEMP 37.1; O2SAT 94
[2025-03-17 04:59] LABS: Basophils Absolute Auto 0.1 K/mm3 (0.0-0.1); Basophils Percent Auto 0.7 % (0.2-1.2); Eosinophils Absolute Auto 0.1 K/mm3 (0-0.3); Eosinophils Percent Auto 0.8 % (0-4.4); Hematocrit 34.1 % (37.0-47.0); Hemoglobin 9.8 g/dL (12.0-15.0); Immature Granulocyte Percent A 0.8 % (0-0.5); Lymphocytes Absolute Auto 1.23 K/mm3 (0.9-3.2); Lymphocytes Percent Auto 9.4 % (18.3-44.2); Mean Corpuscular HGB Conc 28.7 g/dl (32-36); Mean Corpuscular Hemoglobin 26.6 pg (26-34); Mean Corpuscular Volume 92.7 fl (80-100); Mean Platelet Volume 9.7 fl (7.4-10.4); Monocytes Absolute Auto 1.2 K/mm3 (0.1-0.6); Monocytes Percent Auto 9.1 % (2.6-8.5); Neutrophils Absolute Auto 10.3 K/mm3 (1.3-6.7); Neutrophils Percent Auto 79.2 % (45.5-73.1); Platelet Count Result 399 k/mm3 (150-375); Red Blood Count 3.68 M/mm3 (4.2-5.4)
[2025-03-17 05:13] LABS: Alanine Aminotransferase 25 U/L (6-35); Albumin Level 3.7 g/dL (3.5-5.1); Alkaline Phosphatase 98 U/L (38-126); Anion Gap 3 mmol/L (4-12); Aspartate Amino Transferase 31 U/L (14-36); Bilirubin,Total 0.2 mg/dL (0.2-1.3); Blood Urea Nitrogen 12 mg/dL (7-17); Calcium 8.6 mg/dL (8.4-10.2); Carbon Dioxide 33 mmol/L (22-30); Chloride 104 mmol/L (98-107); Estimated Glomerular Filt Rate > 60; Glucose 145 mg/dL (65-110); Potassium 3.8 mmol/L (3.4-5.0); Sodium 140 mmol/L (137-145)
[2025-03-17 05:21] LABS: Anisocytosis 1+; Band Neutrophils Percent 0 % (0-6); Ovalocytes 1+; Platelet Estimate Slightly Increased (Adequate); Schistocytes None Seen
[2025-03-17 06:16] VITALS: BP 116/76; PULSE 114; RESP 18; TEMP 37; O2SAT 93
[2025-03-17 08:00] VITALS: O2SAT 94
--- NOTE | 2025-03-17 08:32 | ECG_ITS ---
Test Date: 2025-03-17 09:06:07 Measurements Intervals [place] Rate: 104 P: 58 NE: 209 QRS: 19 QRSD: 129 T: 30 QT: 356 QTc: 469 Interpretive Statements SINUS TACHYCARDIA RIGHT BUNDLE BRANCH BLOCK [120+ ms QRS DURATION, UPRIGHT V1, 40+ ms S IN I/aVL/V4/V5/V6] ABNORMAL ECG Electronically Signed On 03-18-2025 09:35:33 CDT by Jozef Colon M.D.
[2025-03-17] MEDS: ASPIRIN 81 MG ENTERIC TABLET PO (08:40)
[2025-03-17] MEDS: FERROUS SULFATE 325 MG TABLET DR PO (08:40)
[2025-03-17] MEDS: FUROSEMIDE 20 MG TABLET PO (08:40)
[2025-03-17] MEDS: ENOXAPARIN 40 MG/0.4 ML SYRINGE SUB-Q (08:40)
[2025-03-17] MEDS: CEFEPIME 2 GM/NS 50 ML 2 GM/50 ML BAG IVPB (08:41)
[2025-03-17] MEDS: FLUTICASONE/UMECLIDIN/VILANTER 100-62.5-25 MCG ELLIPTA 1 PUFF INHALATION (09:01)
[2025-03-17 09:02] VITALS: O2SAT 94
[2025-03-17 09:05] LABS: Lactic Acid Reflex 2.4 mmol/L (0.7-2.0)
[2025-03-17 09:24] VITALS: PULSE 114
[2025-03-17] MEDS: METOPROLOL TARTRATE 12.5 MG TABLET PO (09:24)
[2025-03-17 10:53] LABS: Reflex Lactic Acid Yes or No Add Lactic
[2025-03-17 11:28] LABS: Lactic Acid 1.9 mmol/L (0.7-2.0)
[2025-03-17 16:00] VITALS: BP 133/76; PULSE 93; RESP 20; TEMP 36.3; O2SAT 100
--- NOTE | 2025-03-17 16:56 | P.DS_ITS ---
DS: Admitting Diagnosis Discharge Date 03/17/2025 Admitting Diagnosis Painful urination DS: Discharge Diagnosis Discharge Diagnosis (1) Diastolic CHF: Code(s): I50.30 - Unspecified diastolic (congestive) heart failure Status: Acute (2) Tachycardia: Code(s): R00.0 - Tachycardia, unspecified Status: Acute (3) Sepsis: Code(s): A41.9 - Sepsis, unspecified organism Status: Acute (4) Acute bacterial pyelonephritis: Code(s): N10 - Acute pyelonephritis; B96.89 - Other specified bacterial agents as the cause of diseases classified elsewhere Status: Acute DS: Summary Hospital Course Hospital Course: 74-year-old female past medical history of pulmonary embolism, iron deficiency anemia, COVID, hypertension presents the hospital with painful urination and hematuria. Patient was in hospital up in the last month with pneumonia hospital course was uneventful. Patient states that she has been on 1-2 L of oxygen since she left the hospital. Patient states that she does not have hypertension that her right arm runs higher than her left arm. She has been taken off her antihypertensive medications. In the ED the her lab work shows leukocytosis 23.5, anemia with hemoglobin of 10.9, BUN of 20, lactic acid of 3.8, urine is red turbid, negative for nitrates, positive for trace leukocyte esterase, she over [address] abdomen pelvis showing Right hydronephrotic changes with dilated right ureter and surrounding fat stranding suggestive of infection. Minimal fullness of the left renal pelvis. Possible cystitis. Distended gallbladder without stones possibly larger than last month. EKG shows atrial flutter rate of 129. Patient was managed for Cystitis and right pyelonephritis with sepsis, urine culture showed Proteus mirabilis sensitivity to Levaquin. Patient completed 4 da ys of Cefepime. Discharged on 4 more days of Levaquin. Patient however continued to have ST which patient noted has been chronic and noted she followed with cardiology previously however has not followed up since then. Patient was thus managed for inappropriate tachycardia and started on Metoprolol 12.5mg bid. Cardiology was consulted and recommended event monitor and outpatient follow up. Patient will have event monitor put in by lithographic platemaker. Iron deficiency anemia Ferritin 6.23 and Isat 7 from 02/08/25 Patient given 800mg IV iron. continue po Iron for 30 days and stop. Continue other home meds F/u with PCP in 3-5 days F/u with cardiology as instructed Time Spent with Patient Time attestation: Total time spent providing and/or coordinating discharge services: DS: Data Data Completed and Pending Labs on day of discharge: Labs from last 24 hours 03/17/25 03/17/25 03/17/25 11:07 08:44 04:51 WBC 13.0 H RBC 3.68 L Hgb 9.8 L Hct 34.1 L MCV 92.7 MCH 26.6 MCHC 28.7 L RDW 20.0 H Plt Count 399 H MPV 9.7 Immature Gran % (Auto) 0.8 H Neut % (Auto) 79.2 H Lymph % (Auto) 9.4 L Woods % (Auto) 9.1 H Eos % (Auto) 0.8 Baso % (Auto) 0.7 Lymph # (Auto) 1.23 Woods # (Auto) 1.2 H Eos # (Auto) 0.1 Baso # (Auto) 0.1 Abs Immat Gran (auto) 0.10 H Absolute Neuts (auto) 10.3 H Absolute Nucleated RBC 0.000 Band Neutrophils % 0 Nucleated RBC % 0.0 Platelet Estimate Slightly increased Anisocytosis 1+ Ovalocytes 1+ Schistocytes None seen Sodium 140 Potassium 3.8 Chloride 104 Carbon Dioxide 33 H Anion Gap 3 L BUN 12 Creatinine 0.56 L Estim Creat Clear Calc Not Reportable Estimated GFR > 60 Glucose 145 H Lactic Acid 1.9 2.4 H Calcium 8.6 Magnesium 2.0 Total Bilirubin 0.2 AST 31 ALT 25 Alkaline Phosphatase 98 Total Protein 7.0 Albumin 3.7 Preliminary micro results at discharge 03/13/25 16:29 Blood Culture - Preliminary Blood 03/13/25 16:29 Blood Culture - Preliminary Blood Discharge Plan Discharge Attending physician on discharge: Katarzyna Pandey Consulting providers: Kalpana Briscoe Discharging Clinician: Katarzyna Pandey Anticipated Discharge Date/Time: 03/17/25 16:37 Patient Disposition: Home Activity: as tolerated Diet: as tolerated Discharge Instructions: Continue po Iron for 30 days and stop. Please discuss with your PCP and inform them that you received 800mg IV iron in the hospital avoid iron overload. Patient Instructions: Antibiotic Form Patient Language: Nepali Stand Alone Forms: General Discharge Information Follow-up/Referrals: Kalpana Briscoe APN-C [Advanced Practice Nurse] - (F/u with Cardiology as instructed ) Michela Gustafson APRN [Primary Care Provider] - (F/u with PCP in 3-5 days ) Discharge Medications: New metoprolol tartrate 25 mg tablet 12.5 mg PO BID 30 Days Qty: 30 0RF levofloxacin 750 mg tablet 750 mg PO DAILY 3 Days Qty: 3 0RF Continued multivitamin [Multiple Vitamins] Tablet 1 tablet PO DAILY aspirin 81 mg tablet,delayed release (DR/EC) 81 mg PO DAILY biotin 10,000 mcg capsule 10,000 mcg PO DAILY furosemide [Lasix] 20 mg tablet 20 mg PO QAM Qty: 90 3RF Breztri Aerosphere 160-9-4.8 mcg/actuation HFA aerosol inhaler 2 inh inhalation BID Qty: 10.7 6RF Patient Comments: patient stopped taking yesterday, concerned that it could be causing current symptoms ferrous sulfate 325 mg (65 mg iron) tablet 325 mg PO DAILY Qty: 90 3RF Other Ambulatory Orders: [place] cardiac event monitor (Routine) Timeframe: 1 Month Location: [facility] Cardiology Ordered By: Kalpana Briscoe Date of admission: 03/13/25 16:10 Primary Care Provider: Michela Gustafson Admitting Provider: Cm Arroyo Attending physician on admission: Katarzyna Pandey Condition: Stable
[2025-03-17] MEDS: IRON SUCROSE COMPLEX 200 MG, IRON SUCROSE COMPLEX 100 MG in SODIUM CHLORIDE 0.9% IV 250 ML 176.67 MG IVPB (17:06)
== END 2025-03-17 18:45 | disposition home or self-care (01) | DRG 690 ==
LOC: ANHED 13:28 → ANHIMU 16:59 → ANH2MED 03-16 17:13
PROVIDERS: Nurse Practitioner Gerontology; Admitting Provider General Practice; Emergency Provider Student in an Organized Health Care Education/Training Program; PCP Nurse Practitioner Adult Health; Visit Provider Internal Medicine
DX: N10 Acute pyelonephritis (principal); I50.32 Chronic diastolic (congestive) heart failure; B96.4 Proteus (mirabilis) (morganii) as the cause of diseases classified elsewhere; D50.9 Iron deficiency anemia, unspecified; I11.0 Hypertensive heart disease with heart failure; J44.9 Chronic obstructive pulmonary disease, unspecified; R31.9 Hematuria, unspecified; Z87.891 Personal history of nicotine dependence; Z86.711 Personal history of pulmonary embolism; Z79.82 Long term (current) use of aspirin
CPT/HCPCS: 36415; 74177; 80048; 80053; 81001; 83605; 83735; 85025; 87040; 87086; 87186; 93005; 94640; 96361; 96365; 96375; 96376; 99285; A9270; J0692; J1650; J1756; J2270; J2405; J7030; J7050; J7120; Q9967

== ENCOUNTER 2025-03-23 13:54 | Outpatient (CLI) | payer OTHER, SELFPAY ==
[2025-03-23 18:52] LABS: Add Urine Microscopic? YES; Appearance Urine Clear (Clear); Bacteria Urine None Seen /hpf; Bilirubin Urine Negative (Negative); Blood Urine Trace (Negative); Color Urine Yellow (Yellow); Glucose Urine UA Negative (Negative); Ketones Urine Negative (Negative); Leukocyte Esterase Ur 2+ LEU/UL (Negative); Nitrate Urine Negative (Negative); Protein Urine 1+ mg/dL (Negative); Specific Grav Ur 1.021 (1.001-1.035); Squamous Epithelial Cell Urine Few /hpf (Few); WBC Urine 51-100 /hpf (0-3)
== END 2025-03-23 13:55 | disposition home or self-care (01) ==
LOC: ANHBWCLAB 13:56
PROVIDERS: PCP Nurse Practitioner Adult Health; Visit Provider Nurse Practitioner Adult Health
DX: N39.0 Urinary tract infection, site not specified (principal)
CPT/HCPCS: 81001; 87086

== ENCOUNTER 2025-06-27 14:08 | Outpatient (CLI) | payer OTHER, SELFPAY ==
--- OUTSIDE RECORDS SUMMARY | 2025-06-27 14:13 | XMS_ITS | Clinical Summary ---
Author Organization [facility] Address [address] [place] [address] Care Team Providers Care Shell Coremaker Name Role Phone Unavailable Primary Care Provider [...] (VIBRAMYCIN) 100 MG capsuleIndicatio ns:02/25/25 per [facility] instructions Take 1 capsule (100 mg total) by mouth 2 (two) times daily. Indications: 02/25/25 per [facility] instructions #6 tabs Active amoxicillin-clav ulanate (AUGMENTIN) 875-125 MG tabletIndication s:02/25/[address] [facility] instructions Take 1 tablet (875 mg total) by mouth 2 (two) times daily. Indications: 02/25/[address] [facility] instructions #8 Active aspirin EC 81 MG tablet Take 1 tablet (81 mg total) by mouth daily. Active biotin 68007 MCG tablet Take 0.5 tablets (5,000 mcg [...] Chronic respiratory failure with hypoxia and hypercapnia ([facility]) 11/26/2022 COPD (chronic obstructive pu lmonary disease) ([facility]) 11/26/2022 Diastolic CHF ([facility]) 11/26/2022 Intracranial atherosclerosis 11/26/2022 Iron deficiency anemia, unspecified 05/16/2022 Pulmonary embolism without a cute cor pulmonale ([facility]) 02/13/2022 Essential hypertension 12/10/2016 Resolved Problems Problem Noted Date Diagnosed Date Resolved Date Elevated troponin 02/06/2023 04/22/2023 Tobacco use 02/06/2023 04/22/2023 Care Management 12/10/2022 10/15/2023 Microcytic anemia 01/21/2022 04/22/2023 Tobacco dependence 01/13/2019 3 Immunizations Immunization Administration Dates Next Due Pneumococcal [...] place to sleep or slept in a nursing home (including now)? No 12/31/2022 Comments No Sex [...] - 2023-2 5 season) 2024 PHQ-2 (Physician [place]) 11/03/2024 DTaP, Tdap and Td Vaccines ( [...] (ABNORMAL) LIPID PANEL (05/15/2022 10:44 AM CDT) [facility] CHOLESTEROL 171 <200 MG/DL 05/15/2022 3:40 PM CDT [facility] [place] TRIGLYCERIDES 117 <150 MG/DL 05/15/2022 3:40 PM CDT [facility] HDL 47 >40 MG/DL 05/15/2022 3:40 PM CDT [facility] [place] LDL-C 101(H) <100 MG/DL 05/15/2022 3:40 PM CDT [facility] [place] VLDL CALCULATION 23 5 - 28 MG/DL 05/15/2022 3:40 PM CDT [facility] [place] CHOL/HDL RATIO 3.6 0.0 - 4.0 05/15/2022 3:40 PM CD[facility] LDL/HDL 2.1 0.41 - 2.13 05/15/2022 3:40 PM CDT [facility] [place] NON HDL CHOLESTEROL 124 <140 MG/DL 05/15/2022 3:40 PM CD[facility] 05/15/2022 10:4 4 AM CDT Shaan Mayfield MD LABORATORY Final Result [facility] [place] [address] [place] [address], from Last 3 Months or Most Recently Relevant to Health Maintenance Insurance [employer]
[2025-06-27 19:21] LABS: Anion Gap 8 mmol/L (4-12); Blood Urea Nitrogen 14 mg/dL (7-17); Calcium 9.2 mg/dL (8.4-10.2); Carbon Dioxide 30 mmol/L (22-30); Chloride 100 mmol/L (98-107); Estimated Glomerular Filt Rate > 60; Glucose 125 mg/dL (65-110); Potassium 4.0 mmol/L (3.4-5.0); Sodium 138 mmol/L (137-145)
== END 2025-06-27 14:09 | disposition home or self-care (01) ==
PROVIDERS: PCP Nurse Practitioner Adult Health; Visit Provider Nurse Practitioner Adult Health
DX: I50.9 Heart failure, unspecified (principal)
CPT/HCPCS: 36415; 80048